=== PATIENT | female | born 1935 | race African-American/Black ===

== ENCOUNTER 2017-04-19 15:44 | Inpatient (IN) | payer BC ==
[2017-04-19] MEDS: ACETAMINOPHEN 500 MG TABLET PO (16:35)
[2017-04-19] MEDS: MORPHINE SULFATE 4 MG/ML DISP.SYRIN. IV (18:06)
[2017-04-19 19:19] LABS: BASO % 0 % (0-3); EOS % 0 % (0-3); HEMATOCRIT 25.3 % (36.0-47.0); LYMPH % 18 % (24-48); MEAN CORPUSCULAR HEMOGLOBIN 32 pg (25-35); MEAN CORPUSCULAR HGB CONC 32 g/dL (31-37); MEAN CORPUSCULAR VOLUME 100 fL (79-100); MONO # 0.4 x10^3/uL (0.0-1.1); MONO % 7 % (0-9); NEUT # 4.4 x10^3uL (1.8-7.7); NEUT % 75 % (31-73); PLATELET COUNT 90 x10^3/uL (140-400); RED BLOOD COUNT 2.53 x10^6/uL (3.50-5.40); RED CELL DISTRIBUTION WIDTH 19.1 % (11.5-14.5); WHITE BLOOD COUNT 5.9 x10^3/uL (4.0-11.0)
[2017-04-19 19:25] LABS: ADD MAN DIFF? YES
[2017-04-19] MEDS ORDERED: ONDANSETRON PF 4 MG/2 ML VIAL. IV (19:30)
[2017-04-19 19:39] LABS: ANION GAP 8 (6-14); BLOOD UREA NITROGEN 57 mg/dL (7-20); BUN/CREATININE RATIO 24 (6-20); CALCIUM 9.4 mg/dL (8.5-10.1); CARBON DIOXIDE 30 mmol/L (21-32); CHLORIDE 110 mmol/L (98-107); CREATININE 2.4 mg/dL (0.6-1.0); GFR 23.3; GLUCOSE 76 mg/dL (70-99); POTASSIUM 5.1 mmol/L (3.5-5.1); SODIUM 148 mmol/L (136-145)
[2017-04-19] MEDS: traMADol 50 MG TABLET PO (19:40)
[2017-04-19 19:45] LABS: ALBUMIN 2.5 g/dL (3.4-5.0); ALBUMIN/GLOBULIN RATIO 0.7 (1.0-1.7); ALK PHOS 122 U/L (46-116); ALT (SGPT) 28 U/L (14-59); AST (SGOT) 26 U/L (15-37); TOTAL BILIRUBIN 0.2 mg/dL (0.2-1.0); TOTAL PROTEIN 6.1 g/dL (6.4-8.2)
[2017-04-19 19:53] LABS: % BANDS 2 % (0-9); % LYMPHS 11 % (24-48); % MONOS 5 % (0-10); % MYELOS 1 % (0-0); % SEGS 81 % (35-66); ANISOCYTOSIS SLIGHT; PLT ESTIMATE DECREASED (ADEQUATE)
[2017-04-19] MEDS: hydrOXYzine PAMOATE 25 MG CAPSULE PO (21:10)
[2017-04-19] MEDS: LACTOBACILLUS RHAMNOSUS GG 1 CAPSULE. PO (21:10)
[2017-04-19] MEDS: ACETAMINOPHEN 325 MG TABLET. PO (21:11)
[2017-04-20] MEDS: traMADol 50 MG TABLET PO ×3 (03:11→18:32)
[2017-04-20] MEDS: LEVOTHYROXINE 75 MCG TABLET PO (06:16)
[2017-04-20] MEDS: LACTOBACILLUS RHAMNOSUS GG 1 CAPSULE. PO ×2 (08:23→20:51)
[2017-04-20] MEDS: CHOLECALCIFEROL (VITAMIN D3) 1,000 UNIT TABLET PO (08:23)
[2017-04-20] MEDS: hydrOXYzine PAMOATE 25 MG CAPSULE PO ×3 (08:23→20:51)
[2017-04-20] MEDS: ALLOPURINOL 100 MG TABLET. PO (08:23)
[2017-04-20] MEDS: predniSONE 10 MG TABLET PO (08:24)
[2017-04-20] MEDS: ASPIRIN ENTERIC COATED 81 MG TABLET.DR. PO (08:24)
[2017-04-20] MEDS: HYDROcodone/APAP 5/325MG 1 TAB TABLET PO (13:52)
[2017-04-20 18:42] LABS: LACTIC ACID 1.1 mmol/L (0.4-2.0)
[2017-04-21] MEDS: LEVOTHYROXINE 75 MCG TABLET PO (05:49)
[2017-04-21] MEDS: CHOLECALCIFEROL (VITAMIN D3) 1,000 UNIT TABLET PO (09:07)
[2017-04-21] MEDS: LACTOBACILLUS RHAMNOSUS GG 1 CAPSULE. PO ×2 (09:07→21:33)
[2017-04-21] MEDS: ASPIRIN ENTERIC COATED 81 MG TABLET.DR. PO (09:07)
[2017-04-21] MEDS: hydrOXYzine PAMOATE 25 MG CAPSULE PO ×3 (09:08→21:33)
[2017-04-21] MEDS: predniSONE 10 MG TABLET PO (09:08)
[2017-04-21] MEDS: HYDROcodone/APAP 5/325MG 1 TAB TABLET PO ×3 (09:08→17:41)
[2017-04-21] MEDS: ALLOPURINOL 100 MG TABLET. PO (09:08)
[2017-04-21] MEDS: traMADol 50 MG TABLET PO ×2 (12:21→18:37)
[2017-04-21] MEDS: LIDOCAINE 1% PF 2 ML VIAL. INJ (13:41)
[2017-04-21] MEDS: methylPREDNISolone ACETATE 80 MG/ML VIAL. INJ (13:41)
[2017-04-21] MEDS ORDERED: methylPREDNISolone ACETATE 80 MG/ML VIAL. (18:00)
[2017-04-21] MEDS: ACETAMINOPHEN 325 MG TABLET. PO (21:33)
[2017-04-22] MEDS: LEVOTHYROXINE 75 MCG TABLET PO (05:44)
[2017-04-22] MEDS: HYDROcodone/APAP 5/325MG 1 TAB TABLET PO ×3 (05:45→21:17)
[2017-04-22 09:24] LABS: ADD MAN DIFF? NO
[2017-04-22 09:36] LABS: BASO % 0 % (0-3); EOS % 0 % (0-3); HEMATOCRIT 25.9 % (36.0-47.0); HEMOGLOBIN 8.3 g/dL (12.0-15.5); LYMPH # 0.3 x10^3/uL (1.0-4.8); LYMPH % 9 % (24-48); MEAN CORPUSCULAR HEMOGLOBIN 32 pg (25-35); MEAN CORPUSCULAR HGB CONC 32 g/dL (31-37); MEAN CORPUSCULAR VOLUME 99 fL (79-100); MONO # 0.1 x10^3/uL (0.0-1.1); MONO % 3 % (0-9); NEUT # 3.1 x10^3uL (1.8-7.7); NEUT % 88 % (31-73); PLATELET COUNT 73 x10^3/uL (140-400); RED BLOOD COUNT 2.61 x10^6/uL (3.50-5.40); RED CELL DISTRIBUTION WIDTH 18.8 % (11.5-14.5); WHITE BLOOD COUNT 3.5 x10^3/uL (4.0-11.0)
[2017-04-22 09:40] LABS: ANION GAP 6 (6-14); BLOOD UREA NITROGEN 45 mg/dL (7-20); CALCIUM 9.5 mg/dL (8.5-10.1); CARBON DIOXIDE 28 mmol/L (21-32); CHLORIDE 106 mmol/L (98-107); CREATININE 2.1 mg/dL (0.6-1.0); GFR 27.2; GLUCOSE 117 mg/dL (70-99); POTASSIUM 4.8 mmol/L (3.5-5.1); SODIUM 140 mmol/L (136-145)
[2017-04-22] MEDS: ASPIRIN ENTERIC COATED 81 MG TABLET.DR. PO (09:42)
[2017-04-22] MEDS: LACTOBACILLUS RHAMNOSUS GG 1 CAPSULE. PO ×2 (09:43→21:17)
[2017-04-22] MEDS: ALLOPURINOL 100 MG TABLET. PO (09:43)
[2017-04-22] MEDS: predniSONE 10 MG TABLET PO (09:43)
[2017-04-22] MEDS: hydrOXYzine PAMOATE 25 MG CAPSULE PO ×3 (09:43→21:17)
[2017-04-22] MEDS: CHOLECALCIFEROL (VITAMIN D3) 1,000 UNIT TABLET PO (09:43)
[2017-04-22] MEDS: traMADol 50 MG TABLET PO (12:14)
[2017-04-23] MEDS: traMADol 50 MG TABLET PO (06:38)
[2017-04-23] MEDS: LEVOTHYROXINE 75 MCG TABLET PO (06:38)
[2017-04-23] MEDS: ALLOPURINOL 100 MG TABLET. PO (08:59)
[2017-04-23] MEDS: hydrOXYzine PAMOATE 25 MG CAPSULE PO (08:59)
[2017-04-23] MEDS: ASPIRIN ENTERIC COATED 81 MG TABLET.DR. PO (08:59)
[2017-04-23] MEDS: predniSONE 10 MG TABLET PO (08:59)
[2017-04-23] MEDS: CHOLECALCIFEROL (VITAMIN D3) 1,000 UNIT TABLET PO (08:59)
[2017-04-23] MEDS: LACTOBACILLUS RHAMNOSUS GG 1 CAPSULE. PO (08:59)
== END 2017-04-23 12:40 | DRG 913 ==
LOC: ER 15:44 → ED HOLD 19:55 → 4 NORTH 20:50
PROC: 3E0U33Z Introduction of Anti-inflammatory into Joints, Percutaneous Approach (ICD-10-PCS; principal; 2017-04-19)
DX: S46.002A Unspecified injury of muscle(s) and tendon(s) of the rotator cuff of left shoulder, initial encounter (principal); E43 Unspecified severe protein-calorie malnutrition; G62.9 Polyneuropathy, unspecified; I27.20 Pulmonary hypertension, unspecified; I13.0 Hypertensive heart and chronic kidney disease with heart failure and stage 1 through stage 4 chronic kidney disease, or unspecified chronic kidney disease; I50.9 Heart failure, unspecified; D64.9 Anemia, unspecified; E03.9 Hypothyroidism, unspecified; W01.0XXA Fall on same level from slipping, tripping and stumbling without subsequent striking against object, initial encounter; H91.90 Unspecified hearing loss, unspecified ear; I34.0 Nonrheumatic mitral (valve) insufficiency; K21.9 Gastro-esophageal reflux disease without esophagitis; K74.60 Unspecified cirrhosis of liver; M06.9 Rheumatoid arthritis, unspecified; M19.90 Unspecified osteoarthritis, unspecified site; N18.9 Chronic kidney disease, unspecified; Z82.49 Family history of ischemic heart disease and other diseases of the circulatory system; Z83.3 Family history of diabetes mellitus; Z90.49 Acquired absence of other specified parts of digestive tract; Z90.710 Acquired absence of both cervix and uterus; E21.3 Hyperparathyroidism, unspecified; F32.9 Major depressive disorder, single episode, unspecified; F41.9 Anxiety disorder, unspecified; M10.9 Gout, unspecified; Z80.9 Family history of malignant neoplasm, unspecified; Y93.89 Activity, other specified; Y92.89 Other specified places as the place of occurrence of the external cause; Y99.8 Other external cause status; Z60.2 Problems related to living alone
CPT/HCPCS: 36415; 73030; 80048; 80053; 83605; 85007; 85025; 96374; 97110-GP; 97116-GP; 97140-GP; 97162-GP; 97166-GO; 97530-GP; 97535-GO; 99285; 99285-25; J1040; J2270; J7512; Q0177

== ENCOUNTER 2018-05-10 14:34 | Inpatient (IN) | payer BC ==
[~2018-05-10] VITALS: Ht 170.2 cm; Wt 73.9 kg
[~2018-05-10 14:34] MED LIST: ACET325T9 PO; ALBU2.5V8 INH; ALLO100T PO; AMLO2.5T5 PO; AMOX1TAB10 PO; ASPI-612 PO; ASPI-630 PO; BUDE0.5A NEB; CEFP100T PO; CHOL10003 PO; CHOL200044 PO; CYAN100T2 INJ; DILT120C71 PO; FERR325C PO; FERR325T14 PO; FURO-69 PO; FURO20TA3 PO; FURO40TA4 PO; HYDR-2761 PO; HYDR200T5 PO; HYDR200T71 PO; HYDR25TA PO; IPRA3AMP29 NEB; LACT10SO5 PO; LACT1CAP19 PO; LEVO50TA5 PO; LOSA100T14 PO; METO-239 PO; OMEP40CA5 PO; POTA20TA12 PO; PRED-220 PO; PRED2.5T PO; PRED20TA PO; PRED5TAB PO; SPIR25TA5 PO; THIA100T8 PO; URSO250T3 PO; URSO250T9 PO; URSO300C13 PO; URSO300C26 PO; VITA1TAB19 PO
[2018-05-10] MEDS ORDERED: ASPIRIN CHEWABLE 81 MG TABLET. PO ONE ×2 (15:15→18:00)
--- NOTE | 2018-05-10 15:28 | EKG ---
[facility] [address] [place] [address] Test Date: 2018-05-10 Test Time: 15:07:15 Pat Name: ANDI MARTINEZ Department: Room: Gender: F [employer] Supervisor: MARIXA : 1935 Requested By: TONA MARROQUIN Order Number: [id number] Reading MD: Remi Gomez MD Measurements Intervals Ackerman Rate: 96 P: 33 [place]: 130 QRS: 6 QRSD: 96 T: 157 QT: 366 QTc: 469 Interpretive Statements SINUS RHYTHM LEFT ATRIAL ABNORMALITY LVH WITH REPOLARIZATION ABNORMALITY CONSISTENT WITH INFERIOR INFARCT AGE UNDETERMINED ABNORMAL ECG Electronically Signed On 05-12-2018 14:42:18 CDT by Remi Gomez MD
--- NOTE | 2018-05-10 15:41 | RAD ---
Portable chest, 05/10/2018: HISTORY: Shortness of breath Comparison is made to a study from 04/03/2018. The heart is within normal limits in size. There are persistent upper lobe infiltrates, right greater than left. These appear to have improved since the previous study. No new pulmonary abnormality is seen. There is no evidence of pleural fluid. IMPRESSION: Chronic upper lobe pulmonary infiltrates, right greater than left, have improved slightly since 04/03/2018. Electronically signed by: Dejon Ghotra MD (05/10/2018 3:38 PM) [facility]
[2018-05-10 15:42] LABS: BASO # 0.1 x10^3/uL (0.0-0.2); BASO % 1 % (0-3); EOS % 0 % (0-3); HEMOGLOBIN 8.8 g/dL (12.0-15.5); LYMPH # 1.2 x10^3/uL (1.0-4.8); LYMPH % 17 % (24-48); MEAN CORPUSCULAR HEMOGLOBIN 30 pg (25-35); MEAN CORPUSCULAR HGB CONC 31 g/dL (31-37); MEAN CORPUSCULAR VOLUME 97 fL (79-100); MONO # 0.4 x10^3/uL (0.0-1.1); MONO % 6 % (0-9); NEUT # 5.2 x10^3uL (1.8-7.7); NEUT % 76 % (31-73); PLATELET COUNT 140 x10^3/uL (140-400); RED BLOOD COUNT 2.89 x10^6/uL (3.50-5.40); RED CELL DISTRIBUTION WIDTH 23.1 % (11.5-14.5); WHITE BLOOD COUNT 6.9 x10^3/uL (4.0-11.0)
[2018-05-10 15:51] LABS: PROTHROMBIN TIME PATIENT 12.9 SEC (11.7-14.0)
[2018-05-10 16:04] LABS: CALCIUM 9.6 mg/dL (8.5-10.1); CREATININE 2.9 mg/dL (0.6-1.0); GFR 18.7
[2018-05-10 16:08] LABS: ALBUMIN 2.6 g/dL (3.4-5.0); ALBUMIN/GLOBULIN RATIO 0.6 (1.0-1.7); TOTAL BILIRUBIN 0.4 mg/dL (0.2-1.0); TOTAL PROTEIN 7.1 g/dL (6.4-8.2)
[2018-05-10 16:22] LABS: ANISOCYTOSIS MOD; PLT ESTIMATE ADEQUATE (ADEQUATE); POLYCHROMASIA PRESENT
[2018-05-10 16:23] LABS: OVALOCYTES FEW; SPHEROCYTES OCC
--- NOTE | 2018-05-10 16:50 | PHYS DOC ---
Past Medical History Past Medical History: GERD, Hypertension, Hypothyroid, Liver Disease, Renal Disease, Other Additional Past Medical Histor: [place],lung nodule,cirrhosis of liver , mitral valve regurgitation Past Surgical History: Appendectomy, Hysterectomy, Other Additional Past Surgical Histo: right ankle surgery, vena cava filter; stomach shunt Alcohol Use: None Drug Use: None Adult General Chief Complaint Chief Complaint: SHORTNESS OF BREATH HPI HPI 82-year-old female presents to ER via POV with her son for complaints of increased shortness of air and generalized fatigue and weakness. Per son patient has chronic anemia and Procrit shot however with patient's appearance staff did not administer the shot and symptoms to the ER for evaluation. Patient is denying any chest pain or palpitations. Patient states she has shortness of air which increases with any exertion. Patient denies abdominal pain or nausea and vomiting. She reports she has had some episodes of diarrhea over the past couple of days dark colored denies visible blood. Patient denies urinary symptoms. Review of Systems Review of Systems Constitutional: Denies fever or chills. Reports generalized fatigue and weakness Eyes: Denies change in visual acuity, redness, or eye pain [] HENT: Denies nasal congestion or sore throat [] Respiratory: Denies cough. Reports SOA which is worse with exertion Cardiovascular: Denies chest pain or palpitations GI: Denies abdominal pain, nausea, vomiting, or bloody stools. Reports diarrhea past couple of days : Denies dysuria or hematuria [] Musculoskeletal: Denies back/neck pain or joint pain- ports bilateral lower extremity swelling is chronic with no acute change. States discoloration in bilateral lower legs is also chronic- reporting intermittent scabbing to lower extremities Integument: Denies rash Neurologic: Denies headache, focal weakness or sensory changes. Endocrine: Denies polyuria or polydipsia [] All other systems were reviewed and found to be within normal limits, except as documented in this note. Current Medications Current Medications Current Medications Medications (Trade) Dose Ordered Sig/Caroline Start Time Stop Time Status Last Admin Dose Admin Aspirin (Children'S Aspirin) 324 mg 1X ONCE 05/10/18 15:15 05/10/18 15:20 DC Allergies Allergies Allergies Coded Allergies Type Severity Reaction Last Updated Verified No Known Drug Allergies 05/10/18 No Physical Exam Physical Exam Constitutional: Well developed, well nourished, no acute distress, non-toxic appearance. Fatigued appearance. Clear speech. HENT: Normocephalic, atraumatic, mucous membranes pink/moist, nose normal. [] Eyes: Pupils equal, conjunctiva normal, no discharge. [] Neck: Normal range of motion, no tenderness, supple, no stridor. Trachea midline Cardiovascular: Heart rate regular rhythm, no murmur [] Lungs & Thorax: Bilateral breath sounds clear to auscultation- diminished in bases. Resp. equal/nonlabored. Speaking in full sentences. Abdomen: Bowel sounds normal, soft, no tenderness, no masses, no pulsatile masses. [] Skin: Warm, dry, no erythema Back: No tenderness, no CVA tenderness. [] Extremities: No tenderness, no cyanosis, no clubbing, ROM intact-slow purposeful movements. 1+ nonpitting edema bilat. LEs with both lower legs with skin discoloration. Scabbing to lt lower leg- no open wounds/drainage/erythema Neurologic: Alert and oriented X 3, normal motor function, normal sensory function, no focal deficits noted. [] Psychologic: Affect normal, judgement normal, patient is anxious during initial exam at times tearful. No uncontrollable behavior Current Patient Data Vital Signs Vital Signs Date Time Temp Pulse Resp B/P (MAP) Pulse Ox O2 Delivery O2 Flow Rate FiO2 05/10/18 16:01 88 24 111/55 (73) 100 Room Air 05/10/18 14:55 95.7 95.7 Lab Values Laboratory Tests Test 05/10/18 15:25 White Blood Count 6.9 x10^3/uL (4.0-11.0) Red Blood Count 2.89 x10^6/uL (3.50-5.40) L Hemoglobin 8.8 g/dL (12.0-15.5) L Hematocrit 28.0 % (36.0-47.0) L Mean Corpuscular Volume 97 fL (79-100) Mean Corpuscular Hemoglobin 30 pg (25-35) Mean Corpuscular Hemoglobin Concent 31 g/dL (31-37) Red Cell Distribution Width 23.1 % (11.5-14.5) H Platelet Count 140 x10^3/uL (140-400) Neutrophils (%) (Auto) 76 % (31-73) H Lymphocytes (%) (Auto) 17 % (24-48) L Monocytes (%) (Auto) 6 % (0-9) Eosinophils (%) (Auto) 0 % (0-3) Basophils (%) (Auto) 1 % (0-3) Neutrophils # (Auto) 5.2 x10^3uL (1.8-7.7) Lymphocytes # (Auto) 1.2 x10^3/uL (1.0-4.8) Monocytes # (Auto) 0.4 x10^3/uL (0.0-1.1) Eosinophils # (Auto) 0.0 x10^3/uL (0.0-0.7) Basophils # (Auto) 0.1 x10^3/uL (0.0-0.2) Platelet Estimate Adequate (ADEQUATE) Polychromasia Present Anisocytosis Mod Macrocytosis Slight Spherocytes Occ Ovalocytes Few Prothrombin Time 12.9 SEC (11.7-14.0) Prothrombin Time INR 1.0 (0.8-1.1) PTT 34 SEC (24-38) Sodium Level 146 mmol/L (136-145) H Potassium Level 4.0 mmol/L (3.5-5.1) Chloride Level 104 mmol/L (98-107) Carbon Dioxide Level 26 mmol/L (21-32) Anion Gap 16 (6-14) H Blood Urea Nitrogen 58 mg/dL (7-20) H Creatinine 2.9 mg/dL (0.6-1.0) H Estimated GFR (Cockcroft-Gault) 18.7 BUN/Creatinine Ratio 20 (6-20) Glucose Level 108 mg/dL (70-99) H Calcium Level 9.6 mg/dL (8.5-10.1) Total Bilirubin 0.4 mg/dL (0.2-1.0) Aspartate Amino Transferase (AST) 23 U/L (15-37) Alanine Aminotransferase (ALT) 17 U/L (14-59) Alkaline Phosphatase 127 U/L (46-116) H Troponin I Quantitative < 0.017 ng/mL (0.000-0.055) UQ-Lab-T-Type Natriuretic Peptide 6185 pg/mL (0-449) H Total Protein 7.1 g/dL (6.4-8.2) Albumin 2.6 g/dL (3.4-5.0) L Albumin/Globulin Ratio 0.6 (1.0-1.7) L Laboratory Tests 05/10/18 15:25 Laboratory Tests 05/10/18 15:25 EKG EKG EKG obtained 05/10/18 at 1507 Interpreted by ER physician Sinus rhythm Rate 96 No STEMI Repeat EKG obtained 05/10/18 at 1714 Interpreted by ER physician and compared to prior EKG from today Sinus rhythm Rate 90 No STEMI Radiology/Procedures Radiology/Procedures PROCEDURE: CHEST AP ONLY Portable chest, 05/10/2018: HISTORY: Shortness of breath Comparison is made to a study from 04/03/2018. The heart is within normal limits in size. There are persistent upper lobe infiltrates, right greater than left. These appear to have improved since the previous study. No new pulmonary abnormality is seen. There is no evidence of pleural fluid. IMPRESSION: Chronic upper lobe pulmonary infiltrates, right greater than left, have improved slightly since 04/03/2018. Electronically signed by: Dejon Ghotra MD (05/10/2018 3:38 PM) [facility] DICTATED and SIGNED BY: DEJON GHOTRA MD DATE: 05/10/18 1536 Course & Med Decision Making Course & Med Decision Making Pertinent Labs and Imaging studies reviewed. (See chart for details) 1640: Reevaluation patient reports she has had improvement in her symptoms. She remains nontoxic with stable vital signs. Discussed test results with patient with CT showing no acute findings. Labs were stable. UA negative for infection. Discussed admission and pt is agreeable with admit plan. Will admit to hospitalist services for further care/evaluation. Spoke with Dr. Bronson, hospitalist and discussed pt's case and admit plan. Will consult pulmonology and cardiology with admit orders. Fecal occult pending as pt's H&H was 8.8/28.0- had ordered aspirin however with H&H results RN informed to hold aspirin until hemacult results returned and if positive aspirin to be held. 1710: Patient had increased shortness of air and so additional EKG was obtained no acute change from prior EKG. She is denying any chest pain or palpitations. She remains on 2 L O2 via nasal cannula with vital signs 103/56 heart rate 101 respirations 26 RR with O2 sat 100%. VQ scan ordered. Following RN redirecting on breathing and family arriving back to bedside pt is less SOA. Dragon Disclaimer Dragon Disclaimer This electronic medical record was generated, in whole or in part, using a voice recognition dictation system. Departure Departure Impression: Primary Impression: Acute electrocardiogram changes Additional Impression: Dyspnea Disposition: ADMITTED INPATIENT Admitting Physician: Warren Wright Condition: STABLE Referrals: RAVI SAUER MD (PCP) Scripts Fluticasone Propionate (Flonase Allergy Relief) 9.9 Ml Gatzke.susp 2 SPRAYS NS DAILY for nasal congestion, #1 BOTTLE Prov: REBECCA HUANG MD 05/14/18 Budesonide/Formoterol Fumarate (SYMBICORT 80-4.5 MCG INHALER) 10.2 Gm Hfa.aer.ad 1 PUFF IH BID for lung inflammation, #1 INHALER Prov: REBECCA HUANG MD 05/14/18 Prednisone (PREDNISONE ) 10 Mg Tablet 10 MG PO UD for lung inflammation, #30 TAB 0 Refills take 3 tablets by mouth daily for 8 days, then take 2 tablets by mouth daily for 2 days, then take 1 tablets by mouth daily for 2 days, then stop. Prov: REBECCA HUANG MD 05/14/18 Problem Qualifiers TONA MARROQUIN APRN May 10, 2018 16:50
[2018-05-10] MEDS ORDERED: ACETAMINOPHEN 325 MG TABLET. PO PRN (17:00)
--- NOTE | 2018-05-10 18:09 | PDOC1 ---
History and Physical Date of Admission Date of Admission DATE: 05/10/18 TIME: 18:09 Identification/Chief Complaint Chief Complaint SEEN IN ER via POV with her son for complaints of increased shortness of air and generalized fatigue and weakness. patient has chronic anemia and Procrit shot however with patient's appearance staff did not administer the shot and symptoms to the ER for evaluation. Patient is denying any chest pain or palpitations. states she has shortness of air which increases with any exertion. Patient denies abdominal pain or nausea and vomiting Past Medical History Past Medical History Past Medical History Past Medical History: GERD, Hypertension, Hypothyroid, Liver Disease, Renal Disease, Other Additional Past Medical Histor: [place],lung nodule,cirrhosis of liver , mitral valve regurgitation , PULM HTN Past Surgical History: Appendectomy, Hysterectomy, Other Additional Past Surgical Histo: right ankle surgery, vena cava filter; stomach shunt Alcohol Use: None Drug Use: None FAMILY HX HTN Cardiovascular: CHF, Valve insufficiency Pulmonary: No pertinent hx CENTRAL NERVOUS SYSTEM: Other GI: GERD Heme/Onc: Anemia NOS, Other Hepatobiliary: Cirrhosis Psych: No pertinent hx Musculoskeletal: No pain, Other Rheumatologic: Rheumatoid arthritis Renal/: Chronic renal insuff Endocrine: Hypothyroidism Past Surgical History Past Surgical History: Appendectomy, Hysterectomy, Other Family History Family History: Diabetes, Hypertension Social History Smoke: No ALCOHOL: none Drugs: None Current Problem List Problem List Problems Medical Problems: (1) Acute electrocardiogram changes Status: Acute (2) Dyspnea Status: Acute Current Medications Current Medications Current Medications Aspirin (Children'S Aspirin) 324 mg 1X ONCE PO ; Start 05/10/18 at 15:15; Stop 05/10/18 at 15:20; Status DC Acetaminophen (Tylenol) 650 mg PRN Q4HRS PRN PO PAIN; Start 05/10/18 at 17:00; Stop 05/11/18 at 16:59 Aspirin (Children'S Aspirin) 324 mg 1X ONCE PO ; Start 05/10/18 at 18:00; Stop 05/10/18 at 18:01; Status DC Active Scripts Active Duoneb 0.5-3(2.5) Mg/3 Ml (Albuterol/Ipratropium) 3 Ml Ampul.neb 3 Ml NEB 1X 30 Days Prednisone (Prednisone) 10 Mg Tablet 10 Mg PO DAILY 28 Days Please take 4 tabs po daily for 5 days then 3 tabs po daily for 7 days then 2 tabs po daily for 7 days and then continue with 1 tab po daily Metoprolol Succinate ( Xl ) (Metoprolol Succinate) 25 Mg Tab.er.24h 25 Mg PO DAILY 30 Days Reported Ferrous Sulfate 325 Mg Tablet 325 Mg PO QODAY Proair Hfa Inhaler (Albuterol Sulfate) 8.5 Gm Hfa.aer.ad 1 Puff INH PRN Q6HRS PRN Hydroxychloroquine Sulfate 200 Mg Tablet 1 Tab PO BID Vitamin D3 (Cholecalciferol (Vitamin D3)) 1,000 Unit Tablet 1,000 Unit PO DAILY Levothyroxine Sodium 50 Mcg Tablet 75 Mcg PO DAILY Aspirin Ec (Aspirin) 81 Mg Tablet.dr 81 Mg PO DAILY Allergies Allergies: Coded Allergies: No Known Drug Allergies (Unverified , 05/10/18) ROS Review of System Review of Systems Review of Systems Constitutional: Denies fever or chills. Reports generalized fatigue and weakness Eyes: Denies change in visual acuity, redness, or eye pain [] HENT: Denies nasal congestion or sore throat [] Respiratory: Denies cough. Reports SOA which is worse with exertion Cardiovascular: Denies chest pain or palpitations GI: Denies abdominal pain, nausea, vomiting, or bloody stools. Reports diarrhea past couple of days : Denies dysuria or hematuria [] Musculoskeletal: Denies back/neck pain or joint pain- ports bilateral lower extremity swelling is chronic with no acute change. States discoloration in bilateral lower legs is also chronic- reporting intermittent scabbing to lower extremities Integument: Denies rash Neurologic: Denies headache, focal weakness or sensory changes. Endocrine: Denies polyuria or polydipsia [] 14 PT systems were reviewed and found to be within normal limits, except as documented General: YES: Fatigue PSYCHOLOGICAL ROS: YES: Anxiety; No: Behavioral Disorder, Concentration difficultie, Decreased libido, Depression, Disorientation, Hallucinations, Hostility, Irritablity, Memory difficulties, Mood Swings, Obsessive thoughts, Physical abuse, Sexual abuse, Sleep disturbances, Suicidal ideation, Other ENDOCRINE: No: Breast Changes, Galactorrhea, Hair Pattern Changes, Hot Flashes , Malaise/lethargy, Mood Swings, Palpitations, Polydipsia/polyuria, Skin Changes , Temperature Intolerance, Unexpected Weight Changes, Other Gastrointestinal: Yes Nausea Physical Exam Physical Exam Physical Exam Physical Exam Constitutional: Well developed, well nourished, no acute distress, non-toxic appearance. Fatigued . Clear speech. HENT: Normocephalic, atraumatic, mucous membranes pink/moist, nose normal. [] Eyes: Pupils equal, conjunctiva normal, no discharge. [] Neck: Normal range of motion, no tenderness, supple, no stridor. Trachea midline Cardiovascular: Heart rate regular rhythm, 3/6 murmur [] Lungs & Thorax: Bilateral breath sounds clear to auscultation- diminished in bases. Resp. equal/nonlabored. Speaking in full sentences. Abdomen: Bowel sounds normal, soft, no tenderness, no masses, no pulsatile masses. [] Skin: Warm, dry, no erythema Back: No tenderness, no CVA tenderness. [] Extremities: No tenderness, no cyanosis, no clubbing, ROM intact-slow purposeful movements. 1+ nonpitting edema bilat. LEs with both lower legs with skin discoloration. Scabbing to lt lower leg- no open wounds/drainage/erythema Neurologic: Alert and oriented X 3, normal motor function, normal sensory function, no focal deficits noted. [] Psychologic: Affect normal, judgement normal, anxious General: Oriented X3, Cooperative, mild distress HEENT: Atraumatic Breasts: Not examined Abdomen: Soft Rectal Exam: not examined Extremities: No cyanosis Vitals Vitals Vital Signs Date Time Temp Pulse Resp B/P (MAP) Pulse Ox O2 Delivery O2 Flow Rate FiO2 05/10/18 14:55 95.7 98 20 110/58 (75) 99 Room Air 95.7 Labs Labs Laboratory Tests Test 05/10/18 15:25 White Blood Count 6.9 x10^3/uL (4.0-11.0) Red Blood Count 2.89 x10^6/uL (3.50-5.40) Hemoglobin 8.8 g/dL (12.0-15.5) Hematocrit 28.0 % (36.0-47.0) Mean Corpuscular Volume 97 fL (79-100) Mean Corpuscular Hemoglobin 30 pg (25-35) Mean Corpuscular Hemoglobin Concent 31 g/dL (31-37) Red Cell Distribution Width 23.1 % (11.5-14.5) Platelet Count 140 x10^3/uL (140-400) Neutrophils (%) (Auto) 76 % (31-73) Lymphocytes (%) (Auto) 17 % (24-48) Monocytes (%) (Auto) 6 % (0-9) Eosinophils (%) (Auto) 0 % (0-3) Basophils (%) (Auto) 1 % (0-3) Neutrophils # (Auto) 5.2 x10^3uL (1.8-7.7) Lymphocytes # (Auto) 1.2 x10^3/uL (1.0-4.8) Monocytes # (Auto) 0.4 x10^3/uL (0.0-1.1) Eosinophils # (Auto) 0.0 x10^3/uL (0.0-0.7) Basophils # (Auto) 0.1 x10^3/uL (0.0-0.2) Platelet Estimate Adequate (ADEQUATE) Polychromasia Present Anisocytosis Mod Macrocytosis Slight Spherocytes Occ Ovalocytes Few Prothrombin Time 12.9 SEC (11.7-14.0) Prothromb Time International Ratio 1.0 (0.8-1.1) Activated Partial Thromboplast Time 34 SEC (24-38) Sodium Level 146 mmol/L (136-145) Potassium Level 4.0 mmol/L (3.5-5.1) Chloride Level 104 mmol/L (98-107) Carbon Dioxide Level 26 mmol/L (21-32) Anion Gap 16 (6-14) Blood Urea Nitrogen 58 mg/dL (7-20) Creatinine 2.9 mg/dL (0.6-1.0) Estimated GFR (Cockcroft-Gault) 18.7 BUN/Creatinine Ratio 20 (6-20) Glucose Level 108 mg/dL (70-99) Calcium Level 9.6 mg/dL (8.5-10.1) Total Bilirubin 0.4 mg/dL (0.2-1.0) Aspartate Amino Transf (AST/SGOT) 23 U/L (15-37) Alanine Aminotransferase (ALT/SGPT) 17 U/L (14-59) Alkaline Phosphatase 127 U/L (46-116) Troponin I Quantitative < 0.017 ng/mL (0.000-0.055) WR-Gcs-H-Type Natriuretic Peptide 6185 pg/mL (0-449) Total Protein 7.1 g/dL (6.4-8.2) Albumin 2.6 g/dL (3.4-5.0) Albumin/Globulin Ratio 0.6 (1.0-1.7) Laboratory Tests Test 05/10/18 15:25 White Blood Count 6.9 x10^3/uL (4.0-11.0) Red Blood Count 2.89 x10^6/uL (3.50-5.40) Hemoglobin 8.8 g/dL (12.0-15.5) Hematocrit 28.0 % (36.0-47.0) Mean Corpuscular Volume 97 fL (79-100) Mean Corpuscular Hemoglobin 30 pg (25-35) Mean Corpuscular Hemoglobin Concent 31 g/dL (31-37) Red Cell Distribution Width 23.1 % (11.5-14.5) Platelet Count 140 x10^3/uL (140-400) Neutrophils (%) (Auto) 76 % (31-73) Lymphocytes (%) (Auto) 17 % (24-48) Monocytes (%) (Auto) 6 % (0-9) Eosinophils (%) (Auto) 0 % (0-3) Basophils (%) (Auto) 1 % (0-3) Neutrophils # (Auto) 5.2 x10^3uL (1.8-7.7) Lymphocytes # (Auto) 1.2 x10^3/uL (1.0-4.8) Monocytes # (Auto) 0.4 x10^3/uL (0.0-1.1) Eosinophils # (Auto) 0.0 x10^3/uL (0.0-0.7) Basophils # (Auto) 0.1 x10^3/uL (0.0-0.2) Platelet Estimate Adequate (ADEQUATE) Polychromasia Present Anisocytosis Mod Macrocytosis Slight Spherocytes Occ Ovalocytes Few Prothrombin Time 12.9 SEC (11.7-14.0) Prothromb Time International Ratio 1.0 (0.8-1.1) Activated Partial Thromboplast Time 34 SEC (24-38) Sodium Level 146 mmol/L (136-145) Potassium Level 4.0 mmol/L (3.5-5.1) Chloride Level 104 mmol/L (98-107) Carbon Dioxide Level 26 mmol/L (21-32) Anion Gap 16 (6-14) Blood Urea Nitrogen 58 mg/dL (7-20) Creatinine 2.9 mg/dL (0.6-1.0) Estimated GFR (Cockcroft-Gault) 18.7 BUN/Creatinine Ratio 20 (6-20) Glucose Level 108 mg/dL (70-99) Calcium Level 9.6 mg/dL (8.5-10.1) Total Bilirubin 0.4 mg/dL (0.2-1.0) Aspartate Amino Transf (AST/SGOT) 23 U/L (15-37) Alanine Aminotransferase (ALT/SGPT) 17 U/L (14-59) Alkaline Phosphatase 127 U/L (46-116) Troponin I Quantitative < 0.017 ng/mL (0.000-0.055) YS-Egz-H-Type Natriuretic Peptide 6185 pg/mL (0-449) Total Protein 7.1 g/dL (6.4-8.2) Albumin 2.6 g/dL (3.4-5.0) Albumin/Globulin Ratio 0.6 (1.0-1.7) Images Images STATUS: ADM IN ORD. PHYSICIAN: TONA MARROQUIN APRN REASON: soa /SD tech NOTIFIED PROCEDURE: LUNG VENT/PERFUSION SCAN(VQ) Lung scan 05/10/2018 CLINICAL HISTORY: Shortness of breath for 2 days. TECHNIQUE: After the administration of 9.0 mCi of Xenon-133, ventilation images of both lungs were obtained using the gamma camera. After the intravenous administration of 6.6 mCi of Technetium 99m MAA, perfusion images of both lungs were obtained using the gamma camera. FINDINGS: Comparison is made to portable chest radiograph performed earlier today. This demonstrates borderline cardiomegaly. Right upper lobe patchy infiltrate is seen. Slightly heterogeneous ventilation and perfusion of the radionuclides to both lungs is seen. No unmatched perfusion defect is seen. These findings are consistent with a low probability study for pulmonary embolism. IMPRESSION: Low probability study. Electronically signed by: Danny Monterroso MD (05/10/2018 11:32 PM) [facility] DICTATED and SIGNED BY: DANNY MONTERROSO MD Critical Notification Critical Value: No <Conclusion> The left ventricle is normal size. The left ventricular systolic function is normal and the ejection fraction is within normal range. The Ejection Fraction is 50-55%. There is mild to moderate concentric left ventricular hypertrophy. Calculated aortic valve area is 1.9 cm2 with maximum pressure gradient of 13 mmHg and mean pressure gradient of 7 mmHg. There is mild valvular aortic stenosis. Doppler and Color Flow revealed mild aortic regurgitation. Doppler and Color-flow revealed moderate mitral regurgitation. Doppler and Color Flow revealed moderately severe tricuspid regurgitation. There is severe pulmonary hypertension. The PA pressure was estimated at >68 mmHg. HISTORY: Shortness of breath Comparison is made to a study from 04/03/2018. The heart is within normal limits in size. There are persistent upper lobe infiltrates, right greater than left. These appear to have improved since the previous study. No new pulmonary abnormality is seen. There is no evidence of pleural fluid. IMPRESSION: Chronic upper lobe pulmonary infiltrates, right greater than left, have improved slightly since 04/03/2018. Electronically signed by: Dejon Ghotra MD (05/10/2018 3:38 PM) [facility] DICTATED and SIGNED BY: DEJON GHOTRA MD DATE: 05/10/18 1538 CORONARY ANGIOGRAPHY: LM is a large caliber vessel with normal angiographic appearance. LAD is a large caliber vessel with mild luminal irregularities. Ramus is a moderate caliber vessel with mild luminal irregularities. LCx is a moderate caliber non-dominant vessel with mild luminal irregularities. OM1 is a moderate caliber vessel with normal angiographic appearance. RCA is a large caliber dominant vessel with a mid occlusion. RPDA and RPL are small caliber vessels with normal angiographic appearance that fill via robust left to right collaterals. Conclusion 1. One vessel CAD. 2. Mildly elevated left ventricular pressure. VTE Prophylaxis Ordered VTE Prophylaxis Devices: Yes VTE Pharmacological Prophylaxi: Contraindicated Assessment/Plan Assessment/Plan IMPRESSION Acute hypoxic resp failure Chronic upper lobe pulmonary infiltrates, right greater than left, have improved slightly since 04/03/2018. GENERALIZED WEAKNESS ANEMIA, NORMOCYTIC WITH HEME POS STOOL IN ER FATIGUE, multifactorial RCA is a large caliber dominant vessel with a mid occlusion. RPDA and RPL are small caliber vessels with normal angiographic appearance that fill via robust left to right collaterals. One vessel CAD. Mildly elevated left ventricular pressure. acute renal injury baseline cr approx 1.7 -2.0 ATN RECENT ECHO C/W Doppler and Color Flow revealed moderately severe tricuspid regurgitation. severe pulmonary hypertension. PA pressure was estimated at >68 mmHg. PLAN CARDIOLOGY CONSULT o2 support PULM CONSULT TELE MONITOR FREQ LAB HOME MEDS v/q scan aura nephrology consult iv fluid support hold nephrotoxins dvt prophylaxis 79 min exam time, chart review, > 50% time spent with exam, chart review, pt care coordination ANGLE STEEL MD May 10, 2018 18:09
[2018-05-10 18:14] LABS: BILIRUBIN,URINE SMALL (NEG); CLARITY,URINE CLEAR; COLOR,URINE YELLOW; NITRITE,URINE NEGATIVE (NEG); PROTEIN,URINE NEGATIVE (NEG-TRACE)
[2018-05-10 18:19] LABS: FECAL OB PT POSITIVE (NEG)
[2018-05-10 18:29] LABS: AMORPHOUS SEDIMENT,UR PRESENT /HPF; BACTERIA,URINE 0 /HPF (0-FEW); HYALINE CASTS, URINE MODERATE /HPF; RBC,URINE OCC /HPF (0-2); SQUAMOUS EPITHELIAL CELL,UR FEW /LPF
--- NOTE | 2018-05-10 19:04 | EKG ---
[facility] [address] [place] [address] Test Date: 2018-05-10 Test Time: 17:14:39 Pat Name: ANDI MARTINEZ Department: Room: 260 1 Gender: F Corporate Representative: : 1935 Requested By: STAFF NON Order Number: [id number] Reading MD: Remi Gomez MD Measurements Intervals [place] Rate: 90 P: 44 AL: 128 QRS: 26 QRSD: 96 T: 174 QT: 364 QTc: 449 Interpretive Statements SINUS RHYTHM LEFT ATRIAL ABNORMALITY ST & T ABNORMALITY, CONSIDER LATERAL ISCHEMIA OR LEFT VENTRICULAR STRAIN INFERIOR ISCHEMIA OR LEFT VENTRICULAR STRAIN T ABNORMALITY IN ANTERIOR LEADS ABNORMAL ECG Electronically Signed On 05-12-2018 14:43:52 CDT by Remi Gomez MD
[2018-05-10 19:25] VITALS: BP 122/67
[2018-05-10] MEDS ORDERED: ALBUTEROL SULFATE 2.5 MG/3 ML NEBU. INH PRN (20:15)
[2018-05-10] MEDS ORDERED: ALBUTEROL SULFATE 2.5 MG/3 ML NEBU. NEB PRN (21:00)
[2018-05-10] MEDS: IV NORMAL SALINE 1000ML BAG 1,000 ML IV SCH (21:32)
[2018-05-10] MEDS: HEPARIN for SUB-Q USE 5,000 UNIT/ML VIAL. SQ SCH (21:34)
[2018-05-10 23:35] VITALS: BP 121/70
--- NOTE | 2018-05-10 23:35 | RAD ---
Lung scan 05/10/2018 CLINICAL HISTORY: Shortness of breath for 2 days. TECHNIQUE: After the administration of 9.0 mCi of Xenon-133, ventilation images of both lungs were obtained using the gamma camera. After the intravenous administration of 6.6 mCi of Technetium 99m MAA, perfusion images of both lungs were obtained using the gamma camera. FINDINGS: Comparison is made to portable chest radiograph performed earlier today. This demonstrates borderline cardiomegaly. Right upper lobe patchy infiltrate is seen. Slightly heterogeneous ventilation and perfusion of the radionuclides to both lungs is seen. No unmatched perfusion defect is seen. These findings are consistent with a low probability study for pulmonary embolism. IMPRESSION: Low probability study. Electronically signed by: Danny Monterroso MD (05/10/2018 11:32 PM) [facility]
[2018-05-11] VITALS (11 sets, daily range): BP systolic 98–127; BP diastolic 41–60
[2018-05-11] MEDS ORDERED: IPRATRPIUM/ALBUTEROL 0.5/2.5MG 3 ML NEBU. NEB SCH
[2018-05-11 05:13] LABS: BASO % 0 % (0-3); EOS % 1 % (0-3); HEMATOCRIT 23.8 % (36.0-47.0); HEMOGLOBIN 7.5 g/dL (12.0-15.5); LYMPH # 0.9 x10^3/uL (1.0-4.8); LYMPH % 22 % (24-48); MEAN CORPUSCULAR HEMOGLOBIN 31 pg (25-35); MEAN CORPUSCULAR HGB CONC 32 g/dL (31-37); MEAN CORPUSCULAR VOLUME 97 fL (79-100); MONO # 0.3 x10^3/uL (0.0-1.1); MONO % 8 % (0-9); NEUT # 2.7 x10^3uL (1.8-7.7); NEUT % 69 % (31-73); PLATELET COUNT 126 x10^3/uL (140-400); RED BLOOD COUNT 2.45 x10^6/uL (3.50-5.40); RED CELL DISTRIBUTION WIDTH 22.4 % (11.5-14.5)
[2018-05-11 05:34] LABS: ALBUMIN 2.2 g/dL (3.4-5.0); ALBUMIN/GLOBULIN RATIO 0.6 (1.0-1.7); CALCIUM 8.9 mg/dL (8.5-10.1); CREATININE 2.9 mg/dL (0.6-1.0); GFR 18.7; POTASSIUM 3.8 mmol/L (3.5-5.1); TOTAL BILIRUBIN 0.3 mg/dL (0.2-1.0); TOTAL PROTEIN 5.8 g/dL (6.4-8.2)
[2018-05-11] MEDS: HEPARIN for SUB-Q USE 5,000 UNIT/ML VIAL. SQ SCH ×2 (05:37→13:02)
--- NOTE | 2018-05-11 05:38 | NUR ---
VQ scan low probability for PE. Patient has IVC filter. Hgb 8.8 yesterday, 7.5 this morning. Held 0600 dose Heparin SQ.
[2018-05-11] MEDS: LEVOTHYROXINE 75 MCG TABLET PO SCH (06:04)
[2018-05-11 08:22] LABS: % BANDS 1 % (0-9); % LYMPHS 18 % (24-48); % MONOS 7 % (0-10); % SEGS 74 % (35-66); NUCLEATED RBC 2; PLT ESTIMATE DECREASED (ADEQUATE)
[2018-05-11 08:23] LABS: ANISOCYTOSIS MOD
[2018-05-11] MEDS: CHOLECALCIFEROL (VITAMIN D3) 1,000 UNIT TABLET PO SCH (08:26)
[2018-05-11] MEDS: ASPIRIN ENTERIC COATED 81 MG TABLET.DR. PO SCH (08:26)
[2018-05-11] MEDS: METOPROLOL SUCC 24HR ER 25 MG TAB.ER.24H. PO SCH (08:27)
[2018-05-11] MEDS: IV NORMAL SALINE 1000ML BAG 1,000 ML IV SCH ×2 (08:29→20:32)
--- NOTE | 2018-05-11 11:26 | PDOC2 ---
CAROLANN,CYNTHIAJACKY HUNT 05/11/18 1126: CARDIAC CONSULT DATE OF CONSULT Date of Consult DATE: 05/11/18 TIME: 11:08 REASON FOR CONSULT Reason for Consult: EKG changes REFERRING PHYSICIAN Referring Physician: Sue Dean APRN SOURCE Source: Chart review, Patient HISTORY OF PRESENT ILLNESS HISTORY OF PRESENT ILLNESS This is an 82 yo female who presented secondary to shortness of breath, weakness , and fatigue. Patient reports shortness of breath has been present for the last 2-3 months. Has been progressive over the last couple of days. Does okay at rest, but become significantly dyspneic with minimal exertion. Denies any chest pain, palpitations, dizziness, diaphoresis, or nausea/vomiting. Patient was seen by our service last month for similar symptoms. Underwent cardiac catheterization, which revealed one-vessel CAD and mildly elevated left ventricular pressure. Patient was diuresed. . Also underwent CT scan of the chest, which showed concerns for IDL- sarcoidosis versus pneumonitis. Sed rate was elevated at that time. Patient reports having much less swelling since last admission, but dyspnea never significantly improved PAST MEDICAL HISTORY Past Medical History Cardiovascular: CHF, Valve insufficiency (Mitral regurgitation.) Pulmonary: No pertinent hx CENTRAL NERVOUS SYSTEM: Other (no pertinent hx) GI: GERD Heme/Onc: Anemia NOS, Other (DVT) Hepatobiliary: Cirrhosis (biliary cirrhosis) Psych: No pertinent hx Rheumatologic: Rheumatoid arthritis ENT: No pertinent hx Renal/: Chronic renal insuff Endocrine: Hypothyroidism Dermatology: No pertinent hx PAST SURGICAL HISTORY Past Surgical History Appendectomy, Hysterectomy, Other (IVC filter, gastric bypass) FAMILY HISTORY Family History: Diabetes SOCIAL HISTORY Social History Smoke: No ALCOHOL: none Drugs: None Lives: with Family CURRENT MEDICATIONS CURRENT MEDICATIONS Current Medications Medications (Trade) Dose Ordered Sig/Caroline Route PRN Reason Start Time Stop Time Status Last Admin Dose Admin Aspirin (Children'S Aspirin) 324 mg 1X ONCE PO 05/10/18 18:00 05/10/18 18:01 DC 05/10/18 21:31 Aspirin (Ecotrin) 81 mg DAILY PO 05/11/18 09:00 05/11/18 08:26 Vitamin D (Vitamin D3) 1,000 unit DAILY PO 05/11/18 09:00 05/11/18 08:26 Metoprolol Succinate (Toprol Xl) 25 mg DAILY PO 05/11/18 09:00 05/11/18 08:27 Levothyroxine Sodium (Synthroid) 75 mcg DAILY06 PO 05/11/18 06:00 05/11/18 06:04 Heparin Sodium (Porcine) (Heparin Sodium) 5,000 unit Q8HRS SQ 05/10/18 22:00 05/10/18 21:34 Sodium Chloride 1,000 ml @ 75 mls/hr [id number] IV 05/10/18 20:30 05/11/18 08:29 ALLERGIES ALLERGIES: Coded Allergies: No Known Drug Allergies (Unverified , 05/10/18) ROS Review of System 14 point ROS conducted with pertinent positives noted above in HPI. PHYSICAL EXAM General: Alert, Oriented X3, Cooperative, mild distress (with minimal exertion) HEENT: Atraumatic, Mucous membr. moist/pink Lungs: Other (expiratory crackles ) Heart: Regular rate, Normal S1, Normal S2, Other (3/6 systolic murmur ) Abdomen: Soft, No tenderness Extremities: Normal pulses, Other (trace LE edema ) Skin: No significant lesion Neuro: Sensation intact Psych/Mental Status: Mental status NL, Mood NL MUSCULOSKELETAL: Osteoarthritic changes both hands VITALS VITALS Vital Signs Date Time Temp Pulse Resp B/P (MAP) Pulse Ox O2 Delivery O2 Flow Rate FiO2 05/11/18 08:44 98.1 77 18 113/55 (74) 100 Nasal Cannula 2.0 98.1 LABS Lab: Laboratory Tests Test 05/10/18 15:25 05/10/18 17:55 05/10/18 17:59 05/10/18 19:50 White Blood Count 6.9 x10^3/uL (4.0-11.0) Red Blood Count 2.89 x10^6/uL (3.50-5.40) Hemoglobin 8.8 g/dL (12.0-15.5) Hematocrit 28.0 % (36.0-47.0) Mean Corpuscular Volume 97 fL (79-100) Mean Corpuscular Hemoglobin 30 pg (25-35) Mean Corpuscular Hemoglobin Concent 31 g/dL (31-37) Red Cell Distribution Width 23.1 % (11.5-14.5) Platelet Count 140 x10^3/uL (140-400) Neutrophils (%) (Auto) 76 % (31-73) Lymphocytes (%) (Auto) 17 % (24-48) Monocytes (%) (Auto) 6 % (0-9) Eosinophils (%) (Auto) 0 % (0-3) Basophils (%) (Auto) 1 % (0-3) Neutrophils # (Auto) 5.2 x10^3uL (1.8-7.7) Lymphocytes # (Auto) 1.2 x10^3/uL (1.0-4.8) Monocytes # (Auto) 0.4 x10^3/uL (0.0-1.1) Eosinophils # (Auto) 0.0 x10^3/uL (0.0-0.7) Basophils # (Auto) 0.1 x10^3/uL (0.0-0.2) Platelet Estimate Adequate (ADEQUATE) Polychromasia Present Anisocytosis Mod Macrocytosis Slight Spherocytes Occ Ovalocytes Few Prothrombin Time 12.9 SEC (11.7-14.0) Prothromb Time International Ratio 1.0 (0.8-1.1) Activated Partial Thromboplast Time 34 SEC (24-38) Sodium Level 146 mmol/L (136-145) Potassium Level 4.0 mmol/L (3.5-5.1) Chloride Level 104 mmol/L (98-107) Carbon Dioxide Level 26 mmol/L (21-32) Anion Gap 16 (6-14) Blood Urea Nitrogen 58 mg/dL (7-20) Creatinine 2.9 mg/dL (0.6-1.0) Estimated GFR (Cockcroft-Gault) 18.7 BUN/Creatinine Ratio 20 (6-20) Glucose Level 108 mg/dL (70-99) Calcium Level 9.6 mg/dL (8.5-10.1) Total Bilirubin 0.4 mg/dL (0.2-1.0) Aspartate Amino Transf (AST/SGOT) 23 U/L (15-37) Alanine Aminotransferase (ALT/SGPT) 17 U/L (14-59) Alkaline Phosphatase 127 U/L (46-116) Troponin I Quantitative < 0.017 ng/mL (0.000-0.055) < 0.017 ng/mL (0.000-0.055) ZP-Eza-A-Type Natriuretic Peptide 6185 pg/mL (0-449) Total Protein 7.1 g/dL (6.4-8.2) Albumin 2.6 g/dL (3.4-5.0) Albumin/Globulin Ratio 0.6 (1.0-1.7) Urine Collection Type U cath Urine Color Yellow Urine Clarity Clear Urine pH 5.0 Urine Specific Alligator 1.020 Urine Protein Negative mg/dL (NEG-TRACE) Urine Glucose (UA) Negative mg/dL (NEG) Urine Ketones (Stick) Negative mg/dL (NEG) Urine Blood Negative (NEG) Urine Nitrite Negative (NEG) Urine Bilirubin Small (NEG) Urine Urobilinogen Dipstick 1.0 mg/dL (0.2 mg/dL) Urine Leukocyte Esterase Negative (NEG) Urine RBC Occ /HPF (0-2) Urine WBC 1-4 /HPF (0-4) Urine Squamous Epithelial Cells Few /LPF Urine Amorphous Sediment Present /HPF Urine Bacteria 0 /HPF (0-FEW) Urine Hyaline Casts Moderate /HPF Urine Mucus Slight /LPF Stool Occult Blood Positive (NEG) Test 05/10/18 22:35 05/11/18 04:48 Troponin I Quantitative < 0.017 ng/mL (0.000-0.055) White Blood Count 4.0 x10^3/uL (4.0-11.0) Red Blood Count 2.45 x10^6/uL (3.50-5.40) Hemoglobin 7.5 g/dL (12.0-15.5) Hematocrit 23.8 % (36.0-47.0) Mean Corpuscular Volume 97 fL (79-100) Mean Corpuscular Hemoglobin 31 pg (25-35) Mean Corpuscular Hemoglobin Concent 32 g/dL (31-37) Red Cell Distribution Width 22.4 % (11.5-14.5) Platelet Count 126 x10^3/uL (140-400) Neutrophils (%) (Auto) 69 % (31-73) Lymphocytes (%) (Auto) 22 % (24-48) Monocytes (%) (Auto) 8 % (0-9) Eosinophils (%) (Auto) 1 % (0-3) Basophils (%) (Auto) 0 % (0-3) Neutrophils # (Auto) 2.7 x10^3uL (1.8-7.7) Lymphocytes # (Auto) 0.9 x10^3/uL (1.0-4.8) Monocytes # (Auto) 0.3 x10^3/uL (0.0-1.1) Eosinophils # (Auto) 0.0 x10^3/uL (0.0-0.7) Basophils # (Auto) 0.0 x10^3/uL (0.0-0.2) Segmented Neutrophils % 74 % (35-66) Band Neutrophils % 1 % (0-9) Lymphocytes % 18 % (24-48) Monocytes % 7 % (0-10) Nucleated Red Blood Cells 2 Platelet Estimate Decreased (ADEQUATE) Large Platelets Occ Anisocytosis Mod Sodium Level 146 mmol/L (136-145) Potassium Level 3.8 mmol/L (3.5-5.1) Chloride Level 106 mmol/L (98-107) Carbon Dioxide Level 31 mmol/L (21-32) Anion Gap 9 (6-14) Blood Urea Nitrogen 59 mg/dL (7-20) Creatinine 2.9 mg/dL (0.6-1.0) Estimated GFR (Cockcroft-Gault) 18.7 BUN/Creatinine Ratio 20 (6-20) Glucose Level 81 mg/dL (70-99) Calcium Level 8.9 mg/dL (8.5-10.1) Total Bilirubin 0.3 mg/dL (0.2-1.0) Aspartate Amino Transf (AST/SGOT) 17 U/L (15-37) Alanine Aminotransferase (ALT/SGPT) 15 U/L (14-59) Alkaline Phosphatase 106 U/L (46-116) Total Protein 5.8 g/dL (6.4-8.2) Albumin 2.2 g/dL (3.4-5.0) Albumin/Globulin Ratio 0.6 (1.0-1.7) ECHOCARDIOGRAM ECHOCARDIOGRAM <Conclusion> The left ventricle is normal size. The left ventricular systolic function is normal and the ejection fraction is within normal range. The Ejection Fraction is 50-55%. There is mild to moderate concentric left ventricular hypertrophy. Calculated aortic valve area is 1.9 cm2 with maximum pressure gradient of 13 mmHg and mean pressure gradient of 7 mmHg. There is mild valvular aortic stenosis. Doppler and Color Flow revealed mild aortic regurgitation. Doppler and Color-flow revealed moderate mitral regurgitation. Doppler and Color Flow revealed moderately severe tricuspid regurgitation. There is severe pulmonary hypertension. The PA pressure was estimated at >68 mmHg. DATE: 04/04/18 1302 STRESS TEST STRESS TEST Conclusion 1. The baseline EKG showed small q waves in the inferior leads. 2. ST T wave changes in the high lateral leads with no further changes with pharmacological stress. 3. Perfusion defects suggesting a scar over a portion of the inferior wall and a small portion over the apicolateral wall. 4. A very small area of ischemia over the lateral wall. 5. Hypokinesis over the inferio wall with an ejection fraction of 65%. 6. Scan probably indicates low risk for future cardiac events. DATE: 08/20/162036 HEART CATH HEART CATH CORONARY ANGIOGRAPHY: LM is a large caliber vessel with normal angiographic appearance. LAD is a large caliber vessel with mild luminal irregularities. Ramus is a moderate caliber vessel with mild luminal irregularities. LCx is a moderate caliber non-dominant vessel with mild luminal irregularities. OM1 is a moderate caliber vessel with normal angiographic appearance. RCA is a large caliber dominant vessel with a mid occlusion. RPDA and RPL are small caliber vessels with normal angiographic appearance that fill via robust left to right collaterals. Conclusion 1. One vessel CAD. 2. Mildly elevated left ventricular pressure. Recommendations Aggressive medical therapy with treatment of bleeding issues. Keep Hgb > 8.0 No heparin gtt needed. Continue ASA 81mg daily DATE: 04/04/18 1422 ASSESSMENT/PLAN ASSESSMENT/PLAN 1. Fatigue, weakness 2. Dyspnea; multifactorial. VQ low probability for PE. 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 3. Mild acute on chronic diastolic HF; NT Pro BNP elevated, but CXR without significant vascular congestion. Recent echo with preserved LV systolic function 4. CAD; mid occlusion of RCA noted on cath last month as noted above. 5. HEMAL on CKD; IVFs. 6. Anemia of chronic disease; hbg drop to 7.5 overnight. Fecal occult positive 7. Valvular disease; mild /AR, moderate MR, and moderate-severe TR 8. Severe pulm HTN; PAP 68 9. Hypothyroidism Recommendations Follow pulmonary recs Monitor fluid status closely with IVFs Secondary prevention; ASA, BB, statin No ACEi with HEMAL Supportive care ELMIRA HURTADO MD 05/12/18 1001: CARDIAC CONSULT ASSESSMENT/PLAN ASSESSMENT/PLAN Late entry for 05/11/2018 Pt. seen and examined. Agree with above MATERIALS RECYCLER note. No clear source of cardiac fatigue. She does have pulmonary HTN which is multifactorial. Supportive care. No further CV testing needed, unless pulm team needs a RHC CYNTHIA VUONG APRN May 11, 2018 11:26 ELMIRA HURTADO MD May 12, 2018 10:01
--- NOTE | 2018-05-11 13:23 | NUR ---
SS following for discharge planning. SS reviewed pt chart. Pt is from home and is currently requiring oxygen. Pt was previously on services with [facility], ; fax [phone]. SS will continue to follow for discharge planning.
--- NOTE | 2018-05-11 14:18 | PDOC2 ---
CONSULT Date of Consult Date of Consult DATE: 05/11/18 TIME: 14:10 Reason for Consult Reason for Consult: HEMAL Referring Physician Referring Physician: MILVIA Identification/Chief Complaint Chief Complaint SOB AND WEAKNESS Source Source: Chart review, Patient History of Present Illness Reason for Visit: THIS IS AN 82 YR OLD WITH SOB AND WEAKNESS. NOTED TO HAVE A HGB OF 7.5. SHE DOES HAVE CKD STAGE 4 AND IS ON OP ARANESP QOW AND IRON. CR OF 2.9 NOW AND BASELINE IS ABOUT 2.0. HX ALSO NOTABLE FOR VALVULAR HEART DZ, CAD AND PULMONARY HTN. NO HX OF ANY KIDNEY OR BLADDER SURGERIES HEMATURIA DYSURIA OR FREQUENCY AND NO NEPHROTOXINS OR HEMODYNAMIC INSTABILITY NOTED Past Medical History Cardiovascular: CHF, Valve insufficiency Pulmonary: No pertinent hx CENTRAL NERVOUS SYSTEM: Other GI: GERD Heme/Onc: Anemia NOS, Other Hepatobiliary: Cirrhosis Psych: No pertinent hx Musculoskeletal: No pain, Other Rheumatologic: Rheumatoid arthritis Renal/: Chronic renal insuff Endocrine: Hypothyroidism Past Surgical History Past Surgical History: Appendectomy, Hysterectomy, Other Family History Family History: Diabetes Social History No ALCOHOL: none Drugs: None Lives: with Family Current Problem List Problem List Problems Medical Problems: (1) Acute electrocardiogram changes Status: Acute (2) Dyspnea Status: Acute Current Medications Current Medications Current Medications Aspirin (Children'S Aspirin) 324 mg 1X ONCE PO ; Start 05/10/18 at 15:15; Stop 05/10/18 at 15:20; Status DC Acetaminophen (Tylenol) 650 mg PRN Q4HRS PRN PO PAIN; Start 05/10/18 at 17:00; Stop 05/11/18 at 16:59 Aspirin (Children'S Aspirin) 324 mg 1X ONCE PO Last administered on 05/10/18at 21:31; Start 05/10/18 at 18:00; Stop 05/10/18 at 18:01; Status DC Albuterol Sulfate (Ventolin Neb Soln) 2.5 mg PRN Q6HRS PRN INH SHORTNESS OF BREATH; Start 05/10/18 at 20:15; Stop 05/10/18 at 20:49; Status DC Aspirin (Ecotrin) 81 mg DAILY PO Last administered on 05/11/18at 08:26; Start at 09:00 Vitamin D (Vitamin D3) 1,000 unit DAILY PO Last administered on 05/11/18at 08:26 ; Start 05/11/18 at 09:00 Ferrous Sulfate (Feosol) 325 mg QODAY PO ; Start 05/12/18 at 09:00 Albuterol/ Ipratropium (Duoneb) 3 ml Q4HRS NEB ; Start 05/11/18 at 00:00; Stop 05/11/18 at 00:00; Status DC Metoprolol Succinate (Toprol Xl) 25 mg DAILY PO Last administered on 05/11/18at 08:27; Start 05/11/18 at 09:00 Levothyroxine Sodium (Synthroid) 75 mcg DAILY06 PO Last administered on at 06:04; Start 05/11/18 at 06:00 Heparin Sodium (Porcine) (Heparin Sodium) 5,000 unit Q8HRS SQ Last administered on 05/10/18at 21:34; Start 05/10/18 at 22:00 Sodium Chloride 1,000 ml @ 75 mls/hr [id number] IV Last administered on at 08:29; Start 05/10/18 at 20:30 Albuterol Sulfate (Ventolin Neb Soln) 2.5 mg PRN Q4HRS PRN NEB SHORTNESS OF BREATH; Start 05/10/18 at 21:00 Atorvastatin Calcium (Lipitor) 20 mg QHS PO ; Start 05/11/18 at 21:00 Active Scripts Active Duoneb 0.5-3(2.5) Mg/3 Ml (Albuterol/Ipratropium) 3 Ml Ampul.neb 3 Ml NEB 1X 30 Days Prednisone (Prednisone) 10 Mg Tablet 10 Mg PO DAILY 28 Days Please take 4 tabs po daily for 5 days then 3 tabs po daily for 7 days then 2 tabs po daily for 7 days and then continue with 1 tab po daily Metoprolol Succinate ( Xl ) (Metoprolol Succinate) 25 Mg Tab.er.24h 25 Mg PO DAILY 30 Days Reported Ferrous Sulfate 325 Mg Tablet 325 Mg PO QODAY Proair Hfa Inhaler (Albuterol Sulfate) 8.5 Gm Hfa.aer.ad 1 Puff INH PRN Q6HRS PRN Hydroxychloroquine Sulfate 200 Mg Tablet 1 Tab PO BID Vitamin D3 (Cholecalciferol (Vitamin D3)) 1,000 Unit Tablet 1,000 Unit PO DAILY Levothyroxine Sodium 50 Mcg Tablet 75 Mcg PO DAILY Aspirin Ec (Aspirin) 81 Mg Tablet. 81 Mg PO DAILY Allergies Allergies: Coded Allergies: No Known Drug Allergies (Unverified , 05/10/18) ROS General: YES: Fatigue, Malaise, Appetite PSYCHOLOGICAL ROS: YES: Anxiety, Depression Eyes: Yes Decreased vision HEENT: YES: Heacaches ALLERGY AND IMMUNOLOGY: YES: Seasonal Allergies Respiratory: YES: Cough, Orthopnea, Shortness of breath, SOB with excertion Cardiovascular: yes Orthopnea, yes Paroxysmal Noc. Dyspnea Gastrointestinal: Yes Constipation Genitourinary: YES Incontinence, YES Other (NOCTURIA) Musculoskeletal: Yes Joint Stiffness, Yes Muscular Weakness Neurological: Yes Weakness Skin: Yes Dry Skin, Yes Hair Changes Physical Exam General: Alert, Oriented X3, Cooperative, No acute distress HEENT: Atraumatic, PERRLA Lungs: Other (FEW EXP WHEEZES) Heart: Normal S1, Normal S2, Other ( AND PROB TR) Abdomen: Normal bowel sounds, Soft, No hepatosplenomegaly Extremities: No cyanosis Skin: No breakdown, No significant lesion Neuro: Normal speech, Sensation intact Psych/Mental Status: Mental status NL, Mood NL MUSCULOSKELETAL: No joint tenderness, No deformity, No swelling Vitals VITALS Vital Signs Date Time Temp Pulse Resp B/P (MAP) Pulse Ox O2 Delivery O2 Flow Rate FiO2 05/11/18 11:00 98.3 70 19 105/53 (70) 99 Nasal Cannula 2.0 98.3 Labs Labs Laboratory Tests Test 05/10/18 15:25 05/10/18 17:55 05/10/18 17:59 05/10/18 19:50 White Blood Count 6.9 x10^3/uL (4.0-11.0) Red Blood Count 2.89 x10^6/uL (3.50-5.40) Hemoglobin 8.8 g/dL (12.0-15.5) Hematocrit 28.0 % (36.0-47.0) Mean Corpuscular Volume 97 fL (79-100) Mean Corpuscular Hemoglobin 30 pg (25-35) Mean Corpuscular Hemoglobin Concent 31 g/dL (31-37) Red Cell Distribution Width 23.1 % (11.5-14.5) Platelet Count 140 x10^3/uL (140-400) Neutrophils (%) (Auto) 76 % (31-73) Lymphocytes (%) (Auto) 17 % (24-48) Monocytes (%) (Auto) 6 % (0-9) Eosinophils (%) (Auto) 0 % (0-3) Basophils (%) (Auto) 1 % (0-3) Neutrophils # (Auto) 5.2 x10^3uL (1.8-7.7) Lymphocytes # (Auto) 1.2 x10^3/uL (1.0-4.8) Monocytes # (Auto) 0.4 x10^3/uL (0.0-1.1) Eosinophils # (Auto) 0.0 x10^3/uL (0.0-0.7) Basophils # (Auto) 0.1 x10^3/uL (0.0-0.2) Platelet Estimate Adequate (ADEQUATE) Polychromasia Present Anisocytosis Mod Macrocytosis Slight Spherocytes Occ Ovalocytes Few Prothrombin Time 12.9 SEC (11.7-14.0) Prothromb Time International Ratio 1.0 (0.8-1.1) Activated Partial Thromboplast Time 34 SEC (24-38) Sodium Level 146 mmol/L (136-145) Potassium Level 4.0 mmol/L (3.5-5.1) Chloride Level 104 mmol/L (98-107) Carbon Dioxide Level 26 mmol/L (21-32) Anion Gap 16 (6-14) Blood Urea Nitrogen 58 mg/dL (7-20) Creatinine 2.9 mg/dL (0.6-1.0) Estimated GFR (Cockcroft-Gault) 18.7 BUN/Creatinine Ratio 20 (6-20) Glucose Level 108 mg/dL (70-99) Calcium Level 9.6 mg/dL (8.5-10.1) Total Bilirubin 0.4 mg/dL (0.2-1.0) Aspartate Amino Transf (AST/SGOT) 23 U/L (15-37) Alanine Aminotransferase (ALT/SGPT) 17 U/L (14-59) Alkaline Phosphatase 127 U/L (46-116) Troponin I Quantitative < 0.017 ng/mL (0.000-0.055) < 0.017 ng/mL (0.000-0.055) EK-Ymv-H-Type Natriuretic Peptide 6185 pg/mL (0-449) Total Protein 7.1 g/dL (6.4-8.2) Albumin 2.6 g/dL (3.4-5.0) Albumin/Globulin Ratio 0.6 (1.0-1.7) Urine Collection Type U cath Urine Color Yellow Urine Clarity Clear Urine pH 5.0 Urine Specific [place] 1.020 Urine Protein Negative mg/dL (NEG-TRACE) Urine Glucose (UA) Negative mg/dL (NEG) Urine Ketones (Stick) Negative mg/dL (NEG) Urine Blood Negative (NEG) Urine Nitrite Negative (NEG) Urine Bilirubin Small (NEG) Urine Urobilinogen Dipstick 1.0 mg/dL (0.2 mg/dL) Urine Leukocyte Esterase Negative (NEG) Urine RBC Occ /HPF (0-2) Urine WBC 1-4 /HPF (0-4) Urine Squamous Epithelial Cells Few /LPF Urine Amorphous Sediment Present /HPF Urine Bacteria 0 /HPF (0-FEW) Urine Hyaline Casts Moderate /HPF Urine Mucus Slight /LPF Stool Occult Blood Positive (NEG) Test 05/10/18 22:35 05/11/18 04:48 Troponin I Quantitative < 0.017 ng/mL (0.000-0.055) White Blood Count 4.0 x10^3/uL (4.0-11.0) Red Blood Count 2.45 x10^6/uL (3.50-5.40) Hemoglobin 7.5 g/dL (12.0-15.5) Hematocrit 23.8 % (36.0-47.0) Mean Corpuscular Volume 97 fL (79-100) Mean Corpuscular Hemoglobin 31 pg (25-35) Mean Corpuscular Hemoglobin Concent 32 g/dL (31-37) Red Cell Distribution Width 22.4 % (11.5-14.5) Platelet Count 126 x10^3/uL (140-400) Neutrophils (%) (Auto) 69 % (31-73) Lymphocytes (%) (Auto) 22 % (24-48) Monocytes (%) (Auto) 8 % (0-9) Eosinophils (%) (Auto) 1 % (0-3) Basophils (%) (Auto) 0 % (0-3) Neutrophils # (Auto) 2.7 x10^3uL (1.8-7.7) Lymphocytes # (Auto) 0.9 x10^3/uL (1.0-4.8) Monocytes # (Auto) 0.3 x10^3/uL (0.0-1.1) Eosinophils # (Auto) 0.0 x10^3/uL (0.0-0.7) Basophils # (Auto) 0.0 x10^3/uL (0.0-0.2) Segmented Neutrophils % 74 % (35-66) Band Neutrophils % 1 % (0-9) Lymphocytes % 18 % (24-48) Monocytes % 7 % (0-10) Nucleated Red Blood Cells 2 Platelet Estimate Decreased (ADEQUATE) Large Platelets Occ Anisocytosis Mod Sodium Level 146 mmol/L (136-145) Potassium Level 3.8 mmol/L (3.5-5.1) Chloride Level 106 mmol/L (98-107) Carbon Dioxide Level 31 mmol/L (21-32) Anion Gap 9 (6-14) Blood Urea Nitrogen 59 mg/dL (7-20) Creatinine 2.9 mg/dL (0.6-1.0) Estimated GFR (Cockcroft-Gault) 18.7 BUN/Creatinine Ratio 20 (6-20) Glucose Level 81 mg/dL (70-99) Calcium Level 8.9 mg/dL (8.5-10.1) Total Bilirubin 0.3 mg/dL (0.2-1.0) Aspartate Amino Transf (AST/SGOT) 17 U/L (15-37) Alanine Aminotransferase (ALT/SGPT) 15 U/L (14-59) Alkaline Phosphatase 106 U/L (46-116) Total Protein 5.8 g/dL (6.4-8.2) Albumin 2.2 g/dL (3.4-5.0) Albumin/Globulin Ratio 0.6 (1.0-1.7) Laboratory Tests Test 05/10/18 15:25 05/10/18 17:55 05/10/18 17:59 05/10/18 19:50 White Blood Count 6.9 x10^3/uL (4.0-11.0) Red Blood Count 2.89 x10^6/uL (3.50-5.40) Hemoglobin 8.8 g/dL (12.0-15.5) Hematocrit 28.0 % (36.0-47.0) Mean Corpuscular Volume 97 fL (79-100) Mean Corpuscular Hemoglobin 30 pg (25-35) Mean Corpuscular Hemoglobin Concent 31 g/dL (31-37) Red Cell Distribution Width 23.1 % (11.5-14.5) Platelet Count 140 x10^3/uL (140-400) Neutrophils (%) (Auto) 76 % (31-73) Lymphocytes (%) (Auto) 17 % (24-48) Monocytes (%) (Auto) 6 % (0-9) Eosinophils (%) (Auto) 0 % (0-3) Basophils (%) (Auto) 1 % (0-3) Neutrophils # (Auto) 5.2 x10^3uL (1.8-7.7) Lymphocytes # (Auto) 1.2 x10^3/uL (1.0-4.8) Monocytes # (Auto) 0.4 x10^3/uL (0.0-1.1) Eosinophils # (Auto) 0.0 x10^3/uL (0.0-0.7) Basophils # (Auto) 0.1 x10^3/uL (0.0-0.2) Platelet Estimate Adequate (ADEQUATE) Polychromasia Present Anisocytosis Mod Macrocytosis Slight Spherocytes Occ Ovalocytes Few Prothrombin Time 12.9 SEC (11.7-14.0) Prothromb Time International Ratio 1.0 (0.8-1.1) Activated Partial Thromboplast Time 34 SEC (24-38) Sodium Level 146 mmol/L (136-145) Potassium Level 4.0 mmol/L (3.5-5.1) Chloride Level 104 mmol/L (98-107) Carbon Dioxide Level 26 mmol/L (21-32) Anion Gap 16 (6-14) Blood Urea Nitrogen 58 mg/dL (7-20) Creatinine 2.9 mg/dL (0.6-1.0) Estimated GFR (Cockcroft-Gault) 18.7 BUN/Creatinine Ratio 20 (6-20) Glucose Level 108 mg/dL (70-99) Calcium Level 9.6 mg/dL (8.5-10.1) Total Bilirubin 0.4 mg/dL (0.2-1.0) Aspartate Amino Transf (AST/SGOT) 23 U/L (15-37) Alanine Aminotransferase (ALT/SGPT) 17 U/L (14-59) Alkaline Phosphatase 127 U/L (46-116) Troponin I Quantitative < 0.017 ng/mL (0.000-0.055) < 0.017 ng/mL (0.000-0.055) DW-Hon-G-Type Natriuretic Peptide 6185 pg/mL (0-449) Total Protein 7.1 g/dL (6.4-8.2) Albumin 2.6 g/dL (3.4-5.0) Albumin/Globulin Ratio 0.6 (1.0-1.7) Urine Collection Type U cath Urine Color Yellow Urine Clarity Clear Urine pH 5.0 Urine Specific [place] 1.020 Urine Protein Negative mg/dL (NEG-TRACE) Urine Glucose (UA) Negative mg/dL (NEG) Urine Ketones (Stick) Negative mg/dL (NEG) Urine Blood Negative (NEG) Urine Nitrite Negative (NEG) Urine Bilirubin Small (NEG) Urine Urobilinogen Dipstick 1.0 mg/dL (0.2 mg/dL) Urine Leukocyte Esterase Negative (NEG) Urine RBC Occ /HPF (0-2) Urine WBC 1-4 /HPF (0-4) Urine Squamous Epithelial Cells Few /LPF Urine Amorphous Sediment Present /HPF Urine Bacteria 0 /HPF (0-FEW) Urine Hyaline Casts Moderate /HPF Urine Mucus Slight /LPF Stool Occult Blood Positive (NEG) Test 05/10/18 22:35 05/11/18 04:48 Troponin I Quantitative < 0.017 ng/mL (0.000-0.055) White Blood Count 4.0 x10^3/uL (4.0-11.0) Red Blood Count 2.45 x10^6/uL (3.50-5.40) Hemoglobin 7.5 g/dL (12.0-15.5) Hematocrit 23.8 % (36.0-47.0) Mean Corpuscular Volume 97 fL (79-100) Mean Corpuscular Hemoglobin 31 pg (25-35) Mean Corpuscular Hemoglobin Concent 32 g/dL (31-37) Red Cell Distribution Width 22.4 % (11.5-14.5) Platelet Count 126 x10^3/uL (140-400) Neutrophils (%) (Auto) 69 % (31-73) Lymphocytes (%) (Auto) 22 % (24-48) Monocytes (%) (Auto) 8 % (0-9) Eosinophils (%) (Auto) 1 % (0-3) Basophils (%) (Auto) 0 % (0-3) Neutrophils # (Auto) 2.7 x10^3uL (1.8-7.7) Lymphocytes # (Auto) 0.9 x10^3/uL (1.0-4.8) Monocytes # (Auto) 0.3 x10^3/uL (0.0-1.1) Eosinophils # (Auto) 0.0 x10^3/uL (0.0-0.7) Basophils # (Auto) 0.0 x10^3/uL (0.0-0.2) Segmented Neutrophils % 74 % (35-66) Band Neutrophils % 1 % (0-9) Lymphocytes % 18 % (24-48) Monocytes % 7 % (0-10) Nucleated Red Blood Cells 2 Platelet Estimate Decreased (ADEQUATE) Large Platelets Occ Anisocytosis Mod Sodium Level 146 mmol/L (136-145) Potassium Level 3.8 mmol/L (3.5-5.1) Chloride Level 106 mmol/L (98-107) Carbon Dioxide Level 31 mmol/L (21-32) Anion Gap 9 (6-14) Blood Urea Nitrogen 59 mg/dL (7-20) Creatinine 2.9 mg/dL (0.6-1.0) Estimated GFR (Cockcroft-Gault) 18.7 BUN/Creatinine Ratio 20 (6-20) Glucose Level 81 mg/dL (70-99) Calcium Level 8.9 mg/dL (8.5-10.1) Total Bilirubin 0.3 mg/dL (0.2-1.0) Aspartate Amino Transf (AST/SGOT) 17 U/L (15-37) Alanine Aminotransferase (ALT/SGPT) 15 U/L (14-59) Alkaline Phosphatase 106 U/L (46-116) Total Protein 5.8 g/dL (6.4-8.2) Albumin 2.2 g/dL (3.4-5.0) Albumin/Globulin Ratio 0.6 (1.0-1.7) Assessment/Plan Assessment/Plan IMP DYSPNEA - PROB MULTIFACTORIAL HEMAL WITH CR OF 2.9 CKD STAGE 4 WITH CR OF 2.0 ANEMIA OF CKD DECONDITIONING FATIGUE DUE TO ANEMIA PROB HX OF SINGLE VESSEL CAD HX OF VALVULAR HEART DZ HX OF PULMONARY HTN PLAN PRBC CHECK IRON START ARANESP MAY NEED CONTINUOUS O2 PULM EVAL CARDIAC EVAL LOW FLOW IVF'S D/W ATTENDING UPDATED FAMILY WILL FOLLOW MARBIN MORGAN MD May 11, 2018 14:18
--- NOTE | 2018-05-11 14:40 | PDOC ---
PROGRESS NOTES Chief Complaint Chief Complaint Acute hypoxic resp failure Chronic upper lobe pulmonary infiltrates, right greater than left, have improved slightly since 04/03/2018. GENERALIZED WEAKNESS ANEMIA, NORMOCYTIC WITH HEME POS STOOL IN ER RECENT ECHO C/W Doppler and Color Flow revealed moderately severe tricuspid regurgitation. Severe pulmonary hypertension. 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 Mildly elevated left ventricular pressure. Acute renal injury baseline cr approx 1.7 -2.0 ATN History of Present Illness History of Present Illness Pt was seen and examined today, feeling SOB and was coughing occasionally Sitting in bed eating lunch Family was present at bedside Discussed with Dr Ng in the patient's room Explained to pt that her SOB is likely multifactorial- s/s point to etiology being potentially anemia, heart, lungs, kidneys Answered family's questions and explained plan No further complaints Vitals Vitals Vital Signs Date Time Temp Pulse Resp B/P (MAP) Pulse Ox O2 Delivery O2 Flow Rate FiO2 05/11/18 11:00 98.3 70 19 105/53 (70) 99 Nasal Cannula 2.0 98.3 Physical Exam General: Alert, Oriented X3, Cooperative, No acute distress Heart: Normal S1, Normal S2, Other ( AND PROB TR) Lungs: Clear Abdomen: Normal bowel sounds, Soft, No hepatosplenomegaly Extremities: No cyanosis Skin: No breakdown, No significant lesion Labs LABS Laboratory Tests Test 05/10/18 15:25 05/10/18 17:55 05/10/18 17:59 05/10/18 19:50 White Blood Count 6.9 x10^3/uL (4.0-11.0) Red Blood Count 2.89 x10^6/uL (3.50-5.40) Hemoglobin 8.8 g/dL (12.0-15.5) Hematocrit 28.0 % (36.0-47.0) Mean Corpuscular Volume 97 fL (79-100) Mean Corpuscular Hemoglobin 30 pg (25-35) Mean Corpuscular Hemoglobin Concent 31 g/dL (31-37) Red Cell Distribution Width 23.1 % (11.5-14.5) Platelet Count 140 x10^3/uL (140-400) Neutrophils (%) (Auto) 76 % (31-73) Lymphocytes (%) (Auto) 17 % (24-48) Monocytes (%) (Auto) 6 % (0-9) Eosinophils (%) (Auto) 0 % (0-3) Basophils (%) (Auto) 1 % (0-3) Neutrophils # (Auto) 5.2 x10^3uL (1.8-7.7) Lymphocytes # (Auto) 1.2 x10^3/uL (1.0-4.8) Monocytes # (Auto) 0.4 x10^3/uL (0.0-1.1) Eosinophils # (Auto) 0.0 x10^3/uL (0.0-0.7) Basophils # (Auto) 0.1 x10^3/uL (0.0-0.2) Platelet Estimate Adequate (ADEQUATE) Polychromasia Present Anisocytosis Mod Macrocytosis Slight Spherocytes Occ Ovalocytes Few Prothrombin Time 12.9 SEC (11.7-14.0) Prothromb Time International Ratio 1.0 (0.8-1.1) Activated Partial Thromboplast Time 34 SEC (24-38) Sodium Level 146 mmol/L (136-145) Potassium Level 4.0 mmol/L (3.5-5.1) Chloride Level 104 mmol/L (98-107) Carbon Dioxide Level 26 mmol/L (21-32) Anion Gap 16 (6-14) Blood Urea Nitrogen 58 mg/dL (7-20) Creatinine 2.9 mg/dL (0.6-1.0) Estimated GFR (Cockcroft-Gault) 18.7 BUN/Creatinine Ratio 20 (6-20) Glucose Level 108 mg/dL (70-99) Calcium Level 9.6 mg/dL (8.5-10.1) Total Bilirubin 0.4 mg/dL (0.2-1.0) Aspartate Amino Transf (AST/SGOT) 23 U/L (15-37) Alanine Aminotransferase (ALT/SGPT) 17 U/L (14-59) Alkaline Phosphatase 127 U/L (46-116) Troponin I Quantitative < 0.017 ng/mL (0.000-0.055) < 0.017 ng/mL (0.000-0.055) OH-Mre-A-Type Natriuretic Peptide 6185 pg/mL (0-449) Total Protein 7.1 g/dL (6.4-8.2) Albumin 2.6 g/dL (3.4-5.0) Albumin/Globulin Ratio 0.6 (1.0-1.7) Urine Collection Type U cath Urine Color Yellow Urine Clarity Clear Urine pH 5.0 Urine Specific [place] 1.020 Urine Protein Negative mg/dL (NEG-TRACE) Urine Glucose (UA) Negative mg/dL (NEG) Urine Ketones (Stick) Negative mg/dL (NEG) Urine Blood Negative (NEG) Urine Nitrite Negative (NEG) Urine Bilirubin Small (NEG) Urine Urobilinogen Dipstick 1.0 mg/dL (0.2 mg/dL) Urine Leukocyte Esterase Negative (NEG) Urine RBC Occ /HPF (0-2) Urine WBC 1-4 /HPF (0-4) Urine Squamous Epithelial Cells Few /LPF Urine Amorphous Sediment Present /HPF Urine Bacteria 0 /HPF (0-FEW) Urine Hyaline Casts Moderate /HPF Urine Mucus Slight /LPF Stool Occult Blood Positive (NEG) Test 05/10/18 22:35 05/11/18 04:48 Troponin I Quantitative < 0.017 ng/mL (0.000-0.055) White Blood Count 4.0 x10^3/uL (4.0-11.0) Red Blood Count 2.45 x10^6/uL (3.50-5.40) Hemoglobin 7.5 g/dL (12.0-15.5) Hematocrit 23.8 % (36.0-47.0) Mean Corpuscular Volume 97 fL (79-100) Mean Corpuscular Hemoglobin 31 pg (25-35) Mean Corpuscular Hemoglobin Concent 32 g/dL (31-37) Red Cell Distribution Width 22.4 % (11.5-14.5) Platelet Count 126 x10^3/uL (140-400) Neutrophils (%) (Auto) 69 % (31-73) Lymphocytes (%) (Auto) 22 % (24-48) Monocytes (%) (Auto) 8 % (0-9) Eosinophils (%) (Auto) 1 % (0-3) Basophils (%) (Auto) 0 % (0-3) Neutrophils # (Auto) 2.7 x10^3uL (1.8-7.7) Lymphocytes # (Auto) 0.9 x10^3/uL (1.0-4.8) Monocytes # (Auto) 0.3 x10^3/uL (0.0-1.1) Eosinophils # (Auto) 0.0 x10^3/uL (0.0-0.7) Basophils # (Auto) 0.0 x10^3/uL (0.0-0.2) Segmented Neutrophils % 74 % (35-66) Band Neutrophils % 1 % (0-9) Lymphocytes % 18 % (24-48) Monocytes % 7 % (0-10) Nucleated Red Blood Cells 2 Platelet Estimate Decreased (ADEQUATE) Large Platelets Occ Anisocytosis Mod Sodium Level 146 mmol/L (136-145) Potassium Level 3.8 mmol/L (3.5-5.1) Chloride Level 106 mmol/L (98-107) Carbon Dioxide Level 31 mmol/L (21-32) Anion Gap 9 (6-14) Blood Urea Nitrogen 59 mg/dL (7-20) Creatinine 2.9 mg/dL (0.6-1.0) Estimated GFR (Cockcroft-Gault) 18.7 BUN/Creatinine Ratio 20 (6-20) Glucose Level 81 mg/dL (70-99) Calcium Level 8.9 mg/dL (8.5-10.1) Total Bilirubin 0.3 mg/dL (0.2-1.0) Aspartate Amino Transf (AST/SGOT) 17 U/L (15-37) Alanine Aminotransferase (ALT/SGPT) 15 U/L (14-59) Alkaline Phosphatase 106 U/L (46-116) Total Protein 5.8 g/dL (6.4-8.2) Albumin 2.2 g/dL (3.4-5.0) Albumin/Globulin Ratio 0.6 (1.0-1.7) Review of Systems Review of Systems Pt reports cough, SOB Denies CP, BARKER, n/v Assessment and Plan Assessmemt and Plan Problems Medical Problems: (1) Acute electrocardiogram changes Status: Acute (2) Dyspnea Status: Acute Assessment: Acute hypoxic resp failure Chronic upper lobe pulmonary infiltrates, right greater than left, have improved slightly since 04/03/2018. GENERALIZED WEAKNESS ANEMIA, NORMOCYTIC - takes Procrit shots regularly Acute renal injury baseline cr approx 1.7 -2.0 ATN HEME POS STOOL IN ER RECENT ECHO C/W Doppler and Color Flow revealed moderately severe tricuspid regurgitation. Severe pulmonary hypertension. 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 Mildly elevated left ventricular pressure. Plan: V/Q scan low probability study Anemia- hold anticoagulation Pt missed recent Procrit shot- likely adding to current anemia O2 support Will Transfuse today- 1 unit Morning Labs Home meds PT/OT DVT prophylaxis Cardiology, Pulmonology, Nephrology following- appreciate recs Will hopefully D/C soon if subspecialties agree Comment Review of Relevant I have reviewed the following items kade (where applicable) has been applied. Labs Laboratory Tests Test 05/10/18 15:25 05/10/18 17:55 05/10/18 17:59 05/10/18 19:50 White Blood Count 6.9 x10^3/uL (4.0-11.0) Red Blood Count 2.89 x10^6/uL (3.50-5.40) Hemoglobin 8.8 g/dL (12.0-15.5) Hematocrit 28.0 % (36.0-47.0) Mean Corpuscular Volume 97 fL (79-100) Mean Corpuscular Hemoglobin 30 pg (25-35) Mean Corpuscular Hemoglobin Concent 31 g/dL (31-37) Red Cell Distribution Width 23.1 % (11.5-14.5) Platelet Count 140 x10^3/uL (140-400) Neutrophils (%) (Auto) 76 % (31-73) Lymphocytes (%) (Auto) 17 % (24-48) Monocytes (%) (Auto) 6 % (0-9) Eosinophils (%) (Auto) 0 % (0-3) Basophils (%) (Auto) 1 % (0-3) Neutrophils # (Auto) 5.2 x10^3uL (1.8-7.7) Lymphocytes # (Auto) 1.2 x10^3/uL (1.0-4.8) Monocytes # (Auto) 0.4 x10^3/uL (0.0-1.1) Eosinophils # (Auto) 0.0 x10^3/uL (0.0-0.7) Basophils # (Auto) 0.1 x10^3/uL (0.0-0.2) Platelet Estimate Adequate (ADEQUATE) Polychromasia Present Anisocytosis Mod Macrocytosis Slight Spherocytes Occ Ovalocytes Few Prothrombin Time 12.9 SEC (11.7-14.0) Prothromb Time International Ratio 1.0 (0.8-1.1) Activated Partial Thromboplast Time 34 SEC (24-38) Sodium Level 146 mmol/L (136-145) Potassium Level 4.0 mmol/L (3.5-5.1) Chloride Level 104 mmol/L (98-107) Carbon Dioxide Level 26 mmol/L (21-32) Anion Gap 16 (6-14) Blood Urea Nitrogen 58 mg/dL (7-20) Creatinine 2.9 mg/dL (0.6-1.0) Estimated GFR (Cockcroft-Gault) 18.7 BUN/Creatinine Ratio 20 (6-20) Glucose Level 108 mg/dL (70-99) Calcium Level 9.6 mg/dL (8.5-10.1) Total Bilirubin 0.4 mg/dL (0.2-1.0) Aspartate Amino Transf (AST/SGOT) 23 U/L (15-37) Alanine Aminotransferase (ALT/SGPT) 17 U/L (14-59) Alkaline Phosphatase 127 U/L (46-116) Troponin I Quantitative < 0.017 ng/mL (0.000-0.055) < 0.017 ng/mL (0.000-0.055) AT-Plv-S-Type Natriuretic Peptide 6185 pg/mL (0-449) Total Protein 7.1 g/dL (6.4-8.2) Albumin 2.6 g/dL (3.4-5.0) Albumin/Globulin Ratio 0.6 (1.0-1.7) Urine Collection Type U cath Urine Color Yellow Urine Clarity Clear Urine pH 5.0 Urine Specific [place] 1.020 Urine Protein Negative mg/dL (NEG-TRACE) Urine Glucose (UA) Negative mg/dL (NEG) Urine Ketones (Stick) Negative mg/dL (NEG) Urine Blood Negative (NEG) Urine Nitrite Negative (NEG) Urine Bilirubin Small (NEG) Urine Urobilinogen Dipstick 1.0 mg/dL (0.2 mg/dL) Urine Leukocyte Esterase Negative (NEG) Urine RBC Occ /HPF (0-2) Urine WBC 1-4 /HPF (0-4) Urine Squamous Epithelial Cells Few /LPF Urine Amorphous Sediment Present /HPF Urine Bacteria 0 /HPF (0-FEW) Urine Hyaline Casts Moderate /HPF Urine Mucus Slight /LPF Stool Occult Blood Positive (NEG) Test 05/10/18 22:35 05/11/18 04:48 Troponin I Quantitative < 0.017 ng/mL (0.000-0.055) White Blood Count 4.0 x10^3/uL (4.0-11.0) Red Blood Count 2.45 x10^6/uL (3.50-5.40) Hemoglobin 7.5 g/dL (12.0-15.5) Hematocrit 23.8 % (36.0-47.0) Mean Corpuscular Volume 97 fL (79-100) Mean Corpuscular Hemoglobin 31 pg (25-35) Mean Corpuscular Hemoglobin Concent 32 g/dL (31-37) Red Cell Distribution Width 22.4 % (11.5-14.5) Platelet Count 126 x10^3/uL (140-400) Neutrophils (%) (Auto) 69 % (31-73) Lymphocytes (%) (Auto) 22 % (24-48) Monocytes (%) (Auto) 8 % (0-9) Eosinophils (%) (Auto) 1 % (0-3) Basophils (%) (Auto) 0 % (0-3) Neutrophils # (Auto) 2.7 x10^3uL (1.8-7.7) Lymphocytes # (Auto) 0.9 x10^3/uL (1.0-4.8) Monocytes # (Auto) 0.3 x10^3/uL (0.0-1.1) Eosinophils # (Auto) 0.0 x10^3/uL (0.0-0.7) Basophils # (Auto) 0.0 x10^3/uL (0.0-0.2) Segmented Neutrophils % 74 % (35-66) Band Neutrophils % 1 % (0-9) Lymphocytes % 18 % (24-48) Monocytes % 7 % (0-10) Nucleated Red Blood Cells 2 Platelet Estimate Decreased (ADEQUATE) Large Platelets Occ Anisocytosis Mod Sodium Level 146 mmol/L (136-145) Potassium Level 3.8 mmol/L (3.5-5.1) Chloride Level 106 mmol/L (98-107) Carbon Dioxide Level 31 mmol/L (21-32) Anion Gap 9 (6-14) Blood Urea Nitrogen 59 mg/dL (7-20) Creatinine 2.9 mg/dL (0.6-1.0) Estimated GFR (Cockcroft-Gault) 18.7 BUN/Creatinine Ratio 20 (6-20) Glucose Level 81 mg/dL (70-99) Calcium Level 8.9 mg/dL (8.5-10.1) Total Bilirubin 0.3 mg/dL (0.2-1.0) Aspartate Amino Transf (AST/SGOT) 17 U/L (15-37) Alanine Aminotransferase (ALT/SGPT) 15 U/L (14-59) Alkaline Phosphatase 106 U/L (46-116) Total Protein 5.8 g/dL (6.4-8.2) Albumin 2.2 g/dL (3.4-5.0) Albumin/Globulin Ratio 0.6 (1.0-1.7) Laboratory Tests Test 05/10/18 15:25 05/10/18 17:55 05/10/18 17:59 05/10/18 19:50 White Blood Count 6.9 x10^3/uL (4.0-11.0) Red Blood Count 2.89 x10^6/uL (3.50-5.40) Hemoglobin 8.8 g/dL (12.0-15.5) Hematocrit 28.0 % (36.0-47.0) Mean Corpuscular Volume 97 fL (79-100) Mean Corpuscular Hemoglobin 30 pg (25-35) Mean Corpuscular Hemoglobin Concent 31 g/dL (31-37) Red Cell Distribution Width 23.1 % (11.5-14.5) Platelet Count 140 x10^3/uL (140-400) Neutrophils (%) (Auto) 76 % (31-73) Lymphocytes (%) (Auto) 17 % (24-48) Monocytes (%) (Auto) 6 % (0-9) Eosinophils (%) (Auto) 0 % (0-3) Basophils (%) (Auto) 1 % (0-3) Neutrophils # (Auto) 5.2 x10^3uL (1.8-7.7) Lymphocytes # (Auto) 1.2 x10^3/uL (1.0-4.8) Monocytes # (Auto) 0.4 x10^3/uL (0.0-1.1) Eosinophils # (Auto) 0.0 x10^3/uL (0.0-0.7) Basophils # (Auto) 0.1 x10^3/uL (0.0-0.2) Platelet Estimate Adequate (ADEQUATE) Polychromasia Present Anisocytosis Mod Macrocytosis Slight Spherocytes Occ Ovalocytes Few Prothrombin Time 12.9 SEC (11.7-14.0) Prothromb Time International Ratio 1.0 (0.8-1.1) Activated Partial Thromboplast Time 34 SEC (24-38) Sodium Level 146 mmol/L (136-145) Potassium Level 4.0 mmol/L (3.5-5.1) Chloride Level 104 mmol/L (98-107) Carbon Dioxide Level 26 mmol/L (21-32) Anion Gap 16 (6-14) Blood Urea Nitrogen 58 mg/dL (7-20) Creatinine 2.9 mg/dL (0.6-1.0) Estimated GFR (Cockcroft-Gault) 18.7 BUN/Creatinine Ratio 20 (6-20) Glucose Level 108 mg/dL (70-99) Calcium Level 9.6 mg/dL (8.5-10.1) Total Bilirubin 0.4 mg/dL (0.2-1.0) Aspartate Amino Transf (AST/SGOT) 23 U/L (15-37) Alanine Aminotransferase (ALT/SGPT) 17 U/L (14-59) Alkaline Phosphatase 127 U/L (46-116) Troponin I Quantitative < 0.017 ng/mL (0.000-0.055) < 0.017 ng/mL (0.000-0.055) MI-Bbf-D-Type Natriuretic Peptide 6185 pg/mL (0-449) Total Protein 7.1 g/dL (6.4-8.2) Albumin 2.6 g/dL (3.4-5.0) Albumin/Globulin Ratio 0.6 (1.0-1.7) Urine Collection Type U cath Urine Color Yellow Urine Clarity Clear Urine pH 5.0 Urine Specific [place] 1.020 Urine Protein Negative mg/dL (NEG-TRACE) Urine Glucose (UA) Negative mg/dL (NEG) Urine Ketones (Stick) Negative mg/dL (NEG) Urine Blood Negative (NEG) Urine Nitrite Negative (NEG) Urine Bilirubin Small (NEG) Urine Urobilinogen Dipstick 1.0 mg/dL (0.2 mg/dL) Urine Leukocyte Esterase Negative (NEG) Urine RBC Occ /HPF (0-2) Urine WBC 1-4 /HPF (0-4) Urine Squamous Epithelial Cells Few /LPF Urine Amorphous Sediment Present /HPF Urine Bacteria 0 /HPF (0-FEW) Urine Hyaline Casts Moderate /HPF Urine Mucus Slight /LPF Stool Occult Blood Positive (NEG) Test 05/10/18 22:35 05/11/18 04:48 Troponin I Quantitative < 0.017 ng/mL (0.000-0.055) White Blood Count 4.0 x10^3/uL (4.0-11.0) Red Blood Count 2.45 x10^6/uL (3.50-5.40) Hemoglobin 7.5 g/dL (12.0-15.5) Hematocrit 23.8 % (36.0-47.0) Mean Corpuscular Volume 97 fL (79-100) Mean Corpuscular Hemoglobin 31 pg (25-35) Mean Corpuscular Hemoglobin Concent 32 g/dL (31-37) Red Cell Distribution Width 22.4 % (11.5-14.5) Platelet Count 126 x10^3/uL (140-400) Neutrophils (%) (Auto) 69 % (31-73) Lymphocytes (%) (Auto) 22 % (24-48) Monocytes (%) (Auto) 8 % (0-9) Eosinophils (%) (Auto) 1 % (0-3) Basophils (%) (Auto) 0 % (0-3) Neutrophils # (Auto) 2.7 x10^3uL (1.8-7.7) Lymphocytes # (Auto) 0.9 x10^3/uL (1.0-4.8) Monocytes # (Auto) 0.3 x10^3/uL (0.0-1.1) Eosinophils # (Auto) 0.0 x10^3/uL (0.0-0.7) Basophils # (Auto) 0.0 x10^3/uL (0.0-0.2) Segmented Neutrophils % 74 % (35-66) Band Neutrophils % 1 % (0-9) Lymphocytes % 18 % (24-48) Monocytes % 7 % (0-10) Nucleated Red Blood Cells 2 Platelet Estimate Decreased (ADEQUATE) Large Platelets Occ Anisocytosis Mod Sodium Level 146 mmol/L (136-145) Potassium Level 3.8 mmol/L (3.5-5.1) Chloride Level 106 mmol/L (98-107) Carbon Dioxide Level 31 mmol/L (21-32) Anion Gap 9 (6-14) Blood Urea Nitrogen 59 mg/dL (7-20) Creatinine 2.9 mg/dL (0.6-1.0) Estimated GFR (Cockcroft-Gault) 18.7 BUN/Creatinine Ratio 20 (6-20) Glucose Level 81 mg/dL (70-99) Calcium Level 8.9 mg/dL (8.5-10.1) Total Bilirubin 0.3 mg/dL (0.2-1.0) Aspartate Amino Transf (AST/SGOT) 17 U/L (15-37) Alanine Aminotransferase (ALT/SGPT) 15 U/L (14-59) Alkaline Phosphatase 106 U/L (46-116) Total Protein 5.8 g/dL (6.4-8.2) Albumin 2.2 g/dL (3.4-5.0) Albumin/Globulin Ratio 0.6 (1.0-1.7) Medications Current Medications Aspirin (Children'S Aspirin) 324 mg 1X ONCE PO ; Start 05/10/18 at 15:15; Stop 05/10/18 at 15:20; Status DC Acetaminophen (Tylenol) 650 mg PRN Q4HRS PRN PO PAIN; Start 05/10/18 at 17:00; Stop 05/11/18 at 16:59 Aspirin (Children'S Aspirin) 324 mg 1X ONCE PO Last administered on 05/10/18at 21:31; Start 05/10/18 at 18:00; Stop 05/10/18 at 18:01; Status DC Albuterol Sulfate (Ventolin Neb Soln) 2.5 mg PRN Q6HRS PRN INH SHORTNESS OF BREATH; Start 05/10/18 at 20:15; Stop 05/10/18 at 20:49; Status DC Aspirin (Ecotrin) 81 mg DAILY PO Last administered on 05/11/18at 08:26; Start at 09:00 Vitamin D (Vitamin D3) 1,000 unit DAILY PO Last administered on 05/11/18at 08:26 ; Start 05/11/18 at 09:00 Ferrous Sulfate (Feosol) 325 mg QODAY PO ; Start 05/12/18 at 09:00 Albuterol/ Ipratropium (Duoneb) 3 ml Q4HRS NEB ; Start 05/11/18 at 00:00; Stop 05/11/18 at 00:00; Status DC Metoprolol Succinate (Toprol Xl) 25 mg DAILY PO Last administered on 05/11/18at 08:27; Start 05/11/18 at 09:00 Levothyroxine Sodium (Synthroid) 75 mcg DAILY06 PO Last administered on at 06:04; Start 05/11/18 at 06:00 Heparin Sodium (Porcine) (Heparin Sodium) 5,000 unit Q8HRS SQ Last administered on 05/10/18at 21:34; Start 05/10/18 at 22:00 Sodium Chloride 1,000 ml @ 75 mls/hr [id number] IV Last administered on at 08:29; Start 05/10/18 at 20:30 Albuterol Sulfate (Ventolin Neb Soln) 2.5 mg PRN Q4HRS PRN NEB SHORTNESS OF BREATH; Start 05/10/18 at 21:00 Atorvastatin Calcium (Lipitor) 20 mg QHS PO ; Start 05/11/18 at 21:00 Darbepoetin [place] (Aranesp) 60 mcg WEEKLYHS SQ ; Start 05/11/18 at 21:00 Active Scripts Active Duoneb 0.5-3(2.5) Mg/3 Ml (Albuterol/Ipratropium) 3 Ml Ampul.neb 3 Ml NEB 1X 30 Days Prednisone (Prednisone) 10 Mg Tablet 10 Mg PO DAILY 28 Days Please take 4 tabs po daily for 5 days then 3 tabs po daily for 7 days then 2 tabs po daily for 7 days and then continue with 1 tab po daily Metoprolol Succinate ( Xl ) (Metoprolol Succinate) 25 Mg Tab.er.24h 25 Mg PO DAILY 30 Days Reported Ferrous Sulfate 325 Mg Tablet 325 Mg PO QODAY Proair Hfa Inhaler (Albuterol Sulfate) 8.5 Gm Hfa.aer.ad 1 Puff INH PRN Q6HRS PRN Hydroxychloroquine Sulfate 200 Mg Tablet 1 Tab PO BID Vitamin D3 (Cholecalciferol (Vitamin D3)) 1,000 Unit Tablet 1,000 Unit PO DAILY Levothyroxine Sodium 50 Mcg Tablet 75 Mcg PO DAILY Aspirin Ec (Aspirin) 81 Mg Tablet.dr 81 Mg PO DAILY Vitals/I & O Vital Sign - Last 24 Hours 05/10/18 05/10/18 05/10/18 05/10/18 14:55 16:01 17:01 18:01 Temp 95.7 95.7 Pulse 98 88 95 99 Resp 20 24 20 20 B/P (MAP) 110/58 (75) 111/55 (73) 106/51 (69) 106/66 (79) Pulse Ox 99 100 99 99 O2 Delivery Room Air Room Air Nasal Cannula Nasal Cannula O2 Flow Rate 2.0 2.0 05/10/18 05/10/18 05/10/18 05/10/18 18:24 19:25 20:00 20:40 Temp 97.9 97.9 Pulse 95 84 Resp 17 B/P (MAP) 134/62 (86) 122/67 (85) Pulse Ox 100 99 96 O2 Delivery Nasal Cannula Nasal Cannula Nasal Cannula Nasal Cannula O2 Flow Rate 2.0 2.0 2.0 2.0 05/10/18 05/11/18 05/11/18 05/11/18 23:35 03:15 07:00 08:00 Temp 97.8 98.0 98.1 97.8 98.0 98.1 Pulse 89 77 77 Resp 17 16 18 B/P (MAP) 121/70 (87) 127/58 (81) 113/55 (74) Pulse Ox 99 98 100 O2 Delivery Nasal Cannula Nasal Cannula Nasal Cannula Nasal Cannula O2 Flow Rate 2.0 2.0 2.0 2.0 05/11/18 05/11/18 05/11/18 08:27 08:44 11:00 Temp 98.1 98.3 98.1 98.3 Pulse 69 77 70 Resp 19 B/P (MAP) 138/66 113/55 (74) 105/53 (70) Pulse Ox 100 99 O2 Delivery Nasal Cannula Nasal Cannula O2 Flow Rate 2.0 2.0 Intake and Output 05/10/18 05/10/18 05/11/18 15:00 23:00 07:00 Intake Total 250 ml Balance 250 ml YANA EARL III, DO May 11, 2018 14:39
--- NOTE | 2018-05-11 16:20 | PDOC ---
PULMONARY PROGRESS NOTES Vitals Vital Signs Date Time Temp Pulse Resp B/P (MAP) Pulse Ox O2 Delivery O2 Flow Rate FiO2 05/11/18 15:12 98.4 69 16 98/41 (60) 94 Nasal Cannula 2.0 98.4 General: Alert, No acute distress Lungs: Clear Cardiovascular: S1, S2 Abdomen: Soft, Non-tender Extremities: Other Labs Laboratory Tests Test 05/10/18 15:25 05/10/18 17:55 05/10/18 17:59 05/10/18 19:50 White Blood Count 6.9 x10^3/uL (4.0-11.0) Red Blood Count 2.89 x10^6/uL (3.50-5.40) Hemoglobin 8.8 g/dL (12.0-15.5) Hematocrit 28.0 % (36.0-47.0) Mean Corpuscular Volume 97 fL (79-100) Mean Corpuscular Hemoglobin 30 pg (25-35) Mean Corpuscular Hemoglobin Concent 31 g/dL (31-37) Red Cell Distribution Width 23.1 % (11.5-14.5) Platelet Count 140 x10^3/uL (140-400) Neutrophils (%) (Auto) 76 % (31-73) Lymphocytes (%) (Auto) 17 % (24-48) Monocytes (%) (Auto) 6 % (0-9) Eosinophils (%) (Auto) 0 % (0-3) Basophils (%) (Auto) 1 % (0-3) Neutrophils # (Auto) 5.2 x10^3uL (1.8-7.7) Lymphocytes # (Auto) 1.2 x10^3/uL (1.0-4.8) Monocytes # (Auto) 0.4 x10^3/uL (0.0-1.1) Eosinophils # (Auto) 0.0 x10^3/uL (0.0-0.7) Basophils # (Auto) 0.1 x10^3/uL (0.0-0.2) Platelet Estimate Adequate (ADEQUATE) Polychromasia Present Anisocytosis Mod Macrocytosis Slight Spherocytes Occ Ovalocytes Few Prothrombin Time 12.9 SEC (11.7-14.0) Prothromb Time International Ratio 1.0 (0.8-1.1) Activated Partial Thromboplast Time 34 SEC (24-38) Sodium Level 146 mmol/L (136-145) Potassium Level 4.0 mmol/L (3.5-5.1) Chloride Level 104 mmol/L (98-107) Carbon Dioxide Level 26 mmol/L (21-32) Anion Gap 16 (6-14) Blood Urea Nitrogen 58 mg/dL (7-20) Creatinine 2.9 mg/dL (0.6-1.0) Estimated GFR (Cockcroft-Gault) 18.7 BUN/Creatinine Ratio 20 (6-20) Glucose Level 108 mg/dL (70-99) Calcium Level 9.6 mg/dL (8.5-10.1) Total Bilirubin 0.4 mg/dL (0.2-1.0) Aspartate Amino Transf (AST/SGOT) 23 U/L (15-37) Alanine Aminotransferase (ALT/SGPT) 17 U/L (14-59) Alkaline Phosphatase 127 U/L (46-116) Troponin I Quantitative < 0.017 ng/mL (0.000-0.055) < 0.017 ng/mL (0.000-0.055) IC-Mot-G-Type Natriuretic Peptide 6185 pg/mL (0-449) Total Protein 7.1 g/dL (6.4-8.2) Albumin 2.6 g/dL (3.4-5.0) Albumin/Globulin Ratio 0.6 (1.0-1.7) Urine Collection Type U cath Urine Color Yellow Urine Clarity Clear Urine pH 5.0 Urine Specific Reading 1.020 Urine Protein Negative mg/dL (NEG-TRACE) Urine Glucose (UA) Negative mg/dL (NEG) Urine Ketones (Stick) Negative mg/dL (NEG) Urine Blood Negative (NEG) Urine Nitrite Negative (NEG) Urine Bilirubin Small (NEG) Urine Urobilinogen Dipstick 1.0 mg/dL (0.2 mg/dL) Urine Leukocyte Esterase Negative (NEG) Urine RBC Occ /HPF (0-2) Urine WBC 1-4 /HPF (0-4) Urine Squamous Epithelial Cells Few /LPF Urine Amorphous Sediment Present /HPF Urine Bacteria 0 /HPF (0-FEW) Urine Hyaline Casts Moderate /HPF Urine Mucus Slight /LPF Stool Occult Blood Positive (NEG) Test 05/10/18 22:35 05/11/18 04:48 Troponin I Quantitative < 0.017 ng/mL (0.000-0.055) White Blood Count 4.0 x10^3/uL (4.0-11.0) Red Blood Count 2.45 x10^6/uL (3.50-5.40) Hemoglobin 7.5 g/dL (12.0-15.5) Hematocrit 23.8 % (36.0-47.0) Mean Corpuscular Volume 97 fL (79-100) Mean Corpuscular Hemoglobin 31 pg (25-35) Mean Corpuscular Hemoglobin Concent 32 g/dL (31-37) Red Cell Distribution Width 22.4 % (11.5-14.5) Platelet Count 126 x10^3/uL (140-400) Neutrophils (%) (Auto) 69 % (31-73) Lymphocytes (%) (Auto) 22 % (24-48) Monocytes (%) (Auto) 8 % (0-9) Eosinophils (%) (Auto) 1 % (0-3) Basophils (%) (Auto) 0 % (0-3) Neutrophils # (Auto) 2.7 x10^3uL (1.8-7.7) Lymphocytes # (Auto) 0.9 x10^3/uL (1.0-4.8) Monocytes # (Auto) 0.3 x10^3/uL (0.0-1.1) Eosinophils # (Auto) 0.0 x10^3/uL (0.0-0.7) Basophils # (Auto) 0.0 x10^3/uL (0.0-0.2) Segmented Neutrophils % 74 % (35-66) Band Neutrophils % 1 % (0-9) Lymphocytes % 18 % (24-48) Monocytes % 7 % (0-10) Nucleated Red Blood Cells 2 Platelet Estimate Decreased (ADEQUATE) Large Platelets Occ Anisocytosis Mod Sodium Level 146 mmol/L (136-145) Potassium Level 3.8 mmol/L (3.5-5.1) Chloride Level 106 mmol/L (98-107) Carbon Dioxide Level 31 mmol/L (21-32) Anion Gap 9 (6-14) Blood Urea Nitrogen 59 mg/dL (7-20) Creatinine 2.9 mg/dL (0.6-1.0) Estimated GFR (Cockcroft-Gault) 18.7 BUN/Creatinine Ratio 20 (6-20) Glucose Level 81 mg/dL (70-99) Calcium Level 8.9 mg/dL (8.5-10.1) Total Bilirubin 0.3 mg/dL (0.2-1.0) Aspartate Amino Transf (AST/SGOT) 17 U/L (15-37) Alanine Aminotransferase (ALT/SGPT) 15 U/L (14-59) Alkaline Phosphatase 106 U/L (46-116) Total Protein 5.8 g/dL (6.4-8.2) Albumin 2.2 g/dL (3.4-5.0) Albumin/Globulin Ratio 0.6 (1.0-1.7) Laboratory Tests Test 05/10/18 17:55 05/10/18 17:59 05/10/18 19:50 05/10/18 22:35 Urine Collection Type U cath Urine Color Yellow Urine Clarity Clear Urine pH 5.0 Urine Specific Reading 1.020 Urine Protein Negative mg/dL (NEG-TRACE) Urine Glucose (UA) Negative mg/dL (NEG) Urine Ketones (Stick) Negative mg/dL (NEG) Urine Blood Negative (NEG) Urine Nitrite Negative (NEG) Urine Bilirubin Small (NEG) Urine Urobilinogen Dipstick 1.0 mg/dL (0.2 mg/dL) Urine Leukocyte Esterase Negative (NEG) Urine RBC Occ /HPF (0-2) Urine WBC 1-4 /HPF (0-4) Urine Squamous Epithelial Cells Few /LPF Urine Amorphous Sediment Present /HPF Urine Bacteria 0 /HPF (0-FEW) Urine Hyaline Casts Moderate /HPF Urine Mucus Slight /LPF Stool Occult Blood Positive (NEG) Troponin I Quantitative < 0.017 ng/mL (0.000-0.055) < 0.017 ng/mL (0.000-0.055) Test 05/11/18 04:48 White Blood Count 4.0 x10^3/uL (4.0-11.0) Red Blood Count 2.45 x10^6/uL (3.50-5.40) Hemoglobin 7.5 g/dL (12.0-15.5) Hematocrit 23.8 % (36.0-47.0) Mean Corpuscular Volume 97 fL (79-100) Mean Corpuscular Hemoglobin 31 pg (25-35) Mean Corpuscular Hemoglobin Concent 32 g/dL (31-37) Red Cell Distribution Width 22.4 % (11.5-14.5) Platelet Count 126 x10^3/uL (140-400) Neutrophils (%) (Auto) 69 % (31-73) Lymphocytes (%) (Auto) 22 % (24-48) Monocytes (%) (Auto) 8 % (0-9) Eosinophils (%) (Auto) 1 % (0-3) Basophils (%) (Auto) 0 % (0-3) Neutrophils # (Auto) 2.7 x10^3uL (1.8-7.7) Lymphocytes # (Auto) 0.9 x10^3/uL (1.0-4.8) Monocytes # (Auto) 0.3 x10^3/uL (0.0-1.1) Eosinophils # (Auto) 0.0 x10^3/uL (0.0-0.7) Basophils # (Auto) 0.0 x10^3/uL (0.0-0.2) Segmented Neutrophils % 74 % (35-66) Band Neutrophils % 1 % (0-9) Lymphocytes % 18 % (24-48) Monocytes % 7 % (0-10) Nucleated Red Blood Cells 2 Platelet Estimate Decreased (ADEQUATE) Large Platelets Occ Anisocytosis Mod Sodium Level 146 mmol/L (136-145) Potassium Level 3.8 mmol/L (3.5-5.1) Chloride Level 106 mmol/L (98-107) Carbon Dioxide Level 31 mmol/L (21-32) Anion Gap 9 (6-14) Blood Urea Nitrogen 59 mg/dL (7-20) Creatinine 2.9 mg/dL (0.6-1.0) Estimated GFR (Cockcroft-Gault) 18.7 BUN/Creatinine Ratio 20 (6-20) Glucose Level 81 mg/dL (70-99) Calcium Level 8.9 mg/dL (8.5-10.1) Total Bilirubin 0.3 mg/dL (0.2-1.0) Aspartate Amino Transf (AST/SGOT) 17 U/L (15-37) Alanine Aminotransferase (ALT/SGPT) 15 U/L (14-59) Alkaline Phosphatase 106 U/L (46-116) Total Protein 5.8 g/dL (6.4-8.2) Albumin 2.2 g/dL (3.4-5.0) Albumin/Globulin Ratio 0.6 (1.0-1.7) Medications Active Scripts Medications Dose Route/Sig Max Daily Dose Days Date Category Dose Instructions Ferrous Sulfate 325 Mg Tablet 325 Mg PO QODAY 04/27/18 Reported Duoneb 0.5-3(2.5) Mg/3 Ml (Albuterol/Ipratropium) 3 Ml Ampul.neb 3 Ml NEB 1X 30 04/07/18 Rx Prednisone (Prednisone) 10 Mg Tablet 10 Mg PO DAILY 28 04/07/18 Rx Please take 4 tabs po daily for 5 days then 3 tabs po daily for 7 days then 2 tabs po daily for 7 days and then continue with 1 tab po daily Metoprolol Succinate ( Xl ) (Metoprolol Succinate) 25 Mg Tab.er.24h 25 Mg PO DAILY 30 04/06/18 Rx Proair Hfa Inhaler (Albuterol Sulfate) 8.5 Gm Hfa.aer.ad 1 Puff INH PRN Q6HRS PRN 04/03/18 Reported Hydroxychloroquine Sulfate 200 Mg Tablet 1 Tab PO BID 04/03/18 Reported Vitamin D3 (Cholecalciferol (Vitamin D3)) 1,000 Unit Tablet 1,000 Unit PO DAILY 02/19/15 Reported Levothyroxine Sodium 50 Mcg Tablet 75 Mcg PO DAILY 01/24/13 Reported Aspirin Ec (Aspirin) 81 Mg Tablet.dr 81 Mg PO DAILY 01/24/13 Reported Impression . FULL NOTE DICTATED PROGRESSIVE DYSPNEA MULTIFACTORIAL SEE DICTATED DOUBT PE, DOUBT PNEUMONIA THANKS EVELIN GONZALEZ MD May 11, 2018 16:20
[2018-05-11] MEDS ORDERED: CEPH500C PO (16:42)
[2018-05-11] MEDS ORDERED: FUROSEMIDE 40 MG/4 ML VIAL. IVP ONE (18:00)
[2018-05-11] MEDS: ATORVASTATIN CALCIUM 20 MG TABLET PO SCH (20:31)
[2018-05-11] MEDS: CEPHALEXIN 250 MG CAPSULE. PO SCH (20:32)
[2018-05-11] MEDS ORDERED: DARBEPOETIN ALFA 60 MCG/0.3 ML DISP.SYRIN. SQ SCH (21:00)
[2018-05-12 03:10] VITALS: BP 103/52
--- NOTE | 2018-05-12 03:52 | CONS ---
DATE OF CONSULTATION: 05/11/2018 ATTENDING PHYSICIAN: Warren Bronson MD. REASON FOR CONSULTATION: The patient is seen in pulmonary consultation at the request of Dr. Bronson for abnormal x-ray, increasing shortness of breath. HISTORY OF PRESENT ILLNESS: The patient is an 82-year-old female who presented via private vehicle with sudden complaints of increasing shortness of breath over the last 2-3 days. This has been slow onset, not acute. No associated syncope or any syncopal episode. The patient denied any chest pain, no palpitation. Cough, mostly nonproductive. She normally does not wear oxygen. She smoked for a short period of time and quit in the . I reviewed her x-ray comparison to previous x-ray approximately a month ago. The bilateral pulmonary infiltrates have actually improved. The patient was admitted on 04/03/2018, a month ago. At that time, she was seen in pulmonary consultation by Dr. Torres, had left-sided chest discomfort and abnormal V/Q scan, showed some matched defects upper lobe. Chest x-ray showed upper lobe infiltrate. She had pneumonia. She underwent a noncontrast CT of the chest, which revealed pulmonary infiltrates. She was treated with antibiotics. She had a CT chest, which revealed bilateral airspace opacities in the upper lobe. She had a 5 mm nodule that needed to followup. The patient was discharged home on the . She had been on Zosyn. It was changed to Augmentin. She had elevated sed rate. She was placed on prednisone and was due to follow up with director [place]. There was some concern about the possibility of interstitial lung disease related to sarcoid. PAST MEDICAL HISTORY: Otherwise remarkable for: 1. 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 The patient was on steroids during the last hospitalization, was discharged on Augmentin. She now has bilateral infiltrates, which have improved, but persists. 2. Gastroesophageal reflux. 3. Hypertension. 4. Hypothyroidism. 5. Chronic liver disease. 6. Chronic renal insufficiency. 7. Chronic anemia. 8. Cirrhosis. 9. Mitral valve regurgitation. PAST SURGICAL HISTORY: Status post hysterectomy, right ankle surgery, vena cava filter and history of gastric shunt. ALLERGIES: None. FAMILY HISTORY: Coronary artery disease. SOCIAL HISTORY: Tobacco history: Quit in 1971, smoked for a short period of time. REVIEW OF SYSTEMS: As indicated above, otherwise, a 10-point system was reviewed and negative. PHYSICAL EXAMINATION: VITAL SIGNS: Stable. O2 saturation was greater than 92%. HEENT: Eyes: The sclerae were nonicteric. NECK: Jugular venous distention was not elevated. No lymphadenopathy. CHEST: Full expansion. LUNGS: Poor airway flow with no wheezes, crackles. CARDIOVASCULAR: Regular rate and rhythm with S1, S2, no S3. ABDOMEN: Soft, nontender, nondistended. EXTREMITIES: No clubbing, cyanosis or edema. NEUROLOGIC: The patient was awake, alert, following commands. A detailed neuro exam was not performed. LABORATORY DATA: White count was normal. Hemoglobin and hematocrit were noted. Electrolytes were noted. BUN and creatinine were elevated. Sodium was 146. INR was 1.0. Stool occult blood was positive. UA was noted. IMPRESSION: 1. Persistent bilateral pulmonary infiltrates, differential includes interstitial lung disease and autoimmune related interstitial lung disease, possible congestive heart failure, doubt new infection. 2. Progressive dyspnea, multifactorial secondary to chronic anemia, bilateral pulmonary infiltrates and weakness. 3. Severe secondary pulmonary hypertension. 4. Aortic stenosis. 5. Acute on chronic renal insufficiency. 6. Coronary artery disease. PLAN: 1. V/Q scan reviewed, low probability, doubt that this is related to pulmonary embolism. 2. I suspect dyspnea is multifactorial. She does have severe pulmonary hypertension. Recommend right heart catheterization with vasodilator administration. 3. Follow Nephrology consult input. 4. Transfuse. 5. GI consultation for positive occult blood. 6. No need for antibiotics at this time. I do appreciate the privilege in sharing in the patient's care. EVELIN GONZALEZ MD DR: SAUL/marisel JOB#: [id number] / [id number]
[2018-05-12 04:08] LABS: HEMATOCRIT 29.3 % (36.0-47.0); HEMOGLOBIN 9.3 g/dL (12.0-15.5); RED BLOOD COUNT 3.08 x10^6/uL (3.50-5.40); RED CELL DISTRIBUTION WIDTH 21.4 % (11.5-14.5); WHITE BLOOD COUNT 4.2 x10^3/uL (4.0-11.0)
[2018-05-12 04:33] LABS: CALCIUM 8.7 mg/dL (8.5-10.1); CREATININE 2.3 mg/dL (0.6-1.0); GFR 24.4; POTASSIUM 3.5 mmol/L (3.5-5.1)
[2018-05-12] MEDS: LEVOTHYROXINE 75 MCG TABLET PO SCH (06:08)
[2018-05-12 07:00] VITALS: BP 96/41
[2018-05-12] MEDS: METOPROLOL SUCC 24HR ER 25 MG TAB.ER.24H. PO SCH (08:46)
[2018-05-12] MEDS: ASPIRIN ENTERIC COATED 81 MG TABLET.DR. PO SCH (08:49)
[2018-05-12] MEDS: FERROUS SULFATE 325 MG TABLET. PO SCH (08:49)
[2018-05-12] MEDS: CEPHALEXIN 250 MG CAPSULE. PO SCH ×2 (08:50→20:46)
[2018-05-12] MEDS: CHOLECALCIFEROL (VITAMIN D3) 1,000 UNIT TABLET PO SCH (08:50)
--- NOTE | 2018-05-12 10:47 | PDOC ---
PROGRESS NOTES Chief Complaint Chief Complaint IMPRESSION Acute hypoxic resp failure Chronic upper lobe pulmonary infiltrates, right greater than left, have improved slightly since 04/03/2018. GENERALIZED WEAKNESS, SLOW PROGRESS ANEMIA, NORMOCYTIC WITH HEME POS STOOL IN ER RECENT ECHO C/W Doppler and Color Flow revealed ///moderately severe tricuspid regurgitation. Severe pulmonary hypertension. 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 Mildly elevated left ventricular pressure. Acute renal injury baseline cr approx 1.7 -2.0 ATN, NEW give iron daily at least bid; tid if can tolerate and monitor. History of Present Illness History of Present Illness Pt was seen and examined today, feeling SOB and was coughing occasionally Sitting in bed eating lunch Family was present at bedside Discussed with Dr Ng in the patient's room Explained to pt that her SOB is likely multifactorial- s/s point to etiology being potentially anemia, heart, lungs, kidneys Answered family's questions and explained plan Vitals Vitals Vital Signs Date Time Temp Pulse Resp B/P (MAP) Pulse Ox O2 Delivery O2 Flow Rate FiO2 05/12/18 08:46 70 96/41 05/12/18 08:00 Nasal Cannula 2.0 05/12/18 07:00 97.4 18 99 97.4 Physical Exam General: Alert, Oriented X3, Cooperative, mild distress (with minimal exertion) Heart: Regular rate, Normal S1, Normal S2, Other (3/6 systolic murmur ) Lungs: Clear Abdomen: Normal bowel sounds, Soft, No tenderness Extremities: No cyanosis, Normal pulses, Other (trace LE edema ) Skin: No significant lesion Labs LABS Laboratory Tests Test 05/12/18 03:50 White Blood Count 4.2 x10^3/uL (4.0-11.0) Red Blood Count 3.08 x10^6/uL (3.50-5.40) Hemoglobin 9.3 g/dL (12.0-15.5) Hematocrit 29.3 % (36.0-47.0) Mean Corpuscular Volume 95 fL (79-100) Mean Corpuscular Hemoglobin 30 pg (25-35) Mean Corpuscular Hemoglobin Concent 32 g/dL (31-37) Red Cell Distribution Width 21.4 % (11.5-14.5) Platelet Count 148 x10^3/uL (140-400) Sodium Level 144 mmol/L (136-145) Potassium Level 3.5 mmol/L (3.5-5.1) Chloride Level 105 mmol/L (98-107) Carbon Dioxide Level 27 mmol/L (21-32) Anion Gap 12 (6-14) Blood Urea Nitrogen 46 mg/dL (7-20) Creatinine 2.3 mg/dL (0.6-1.0) Estimated GFR (Cockcroft-Gault) 24.4 Glucose Level 80 mg/dL (70-99) Calcium Level 8.7 mg/dL (8.5-10.1) Iron Level 62 ug/dL (50-170) Total Iron Binding Capacity 198 ug/dL (250-450) Iron Saturation 31 % (15-34) Assessment and Plan Assessmemt and Plan Problems Medical Problems: (1) Acute electrocardiogram changes Status: Acute (2) Dyspnea Status: Acute Comment Review of Relevant I have reviewed the following items kade (where applicable) has been applied. Labs Laboratory Tests Test 05/10/18 15:25 05/10/18 17:55 05/10/18 17:59 05/10/18 19:50 White Blood Count 6.9 x10^3/uL (4.0-11.0) Red Blood Count 2.89 x10^6/uL (3.50-5.40) Hemoglobin 8.8 g/dL (12.0-15.5) Hematocrit 28.0 % (36.0-47.0) Mean Corpuscular Volume 97 fL (79-100) Mean Corpuscular Hemoglobin 30 pg (25-35) Mean Corpuscular Hemoglobin Concent 31 g/dL (31-37) Red Cell Distribution Width 23.1 % (11.5-14.5) Platelet Count 140 x10^3/uL (140-400) Neutrophils (%) (Auto) 76 % (31-73) Lymphocytes (%) (Auto) 17 % (24-48) Monocytes (%) (Auto) 6 % (0-9) Eosinophils (%) (Auto) 0 % (0-3) Basophils (%) (Auto) 1 % (0-3) Neutrophils # (Auto) 5.2 x10^3uL (1.8-7.7) Lymphocytes # (Auto) 1.2 x10^3/uL (1.0-4.8) Monocytes # (Auto) 0.4 x10^3/uL (0.0-1.1) Eosinophils # (Auto) 0.0 x10^3/uL (0.0-0.7) Basophils # (Auto) 0.1 x10^3/uL (0.0-0.2) Platelet Estimate Adequate (ADEQUATE) Polychromasia Present Anisocytosis Mod Macrocytosis Slight Spherocytes Occ Ovalocytes Few Prothrombin Time 12.9 SEC (11.7-14.0) Prothromb Time International Ratio 1.0 (0.8-1.1) Activated Partial Thromboplast Time 34 SEC (24-38) Sodium Level 146 mmol/L (136-145) Potassium Level 4.0 mmol/L (3.5-5.1) Chloride Level 104 mmol/L (98-107) Carbon Dioxide Level 26 mmol/L (21-32) Anion Gap 16 (6-14) Blood Urea Nitrogen 58 mg/dL (7-20) Creatinine 2.9 mg/dL (0.6-1.0) Estimated GFR (Cockcroft-Gault) 18.7 BUN/Creatinine Ratio 20 (6-20) Glucose Level 108 mg/dL (70-99) Calcium Level 9.6 mg/dL (8.5-10.1) Total Bilirubin 0.4 mg/dL (0.2-1.0) Aspartate Amino Transf (AST/SGOT) 23 U/L (15-37) Alanine Aminotransferase (ALT/SGPT) 17 U/L (14-59) Alkaline Phosphatase 127 U/L (46-116) Troponin I Quantitative < 0.017 ng/mL (0.000-0.055) < 0.017 ng/mL (0.000-0.055) ZH-Gjd-V-Type Natriuretic Peptide 6185 pg/mL (0-449) Total Protein 7.1 g/dL (6.4-8.2) Albumin 2.6 g/dL (3.4-5.0) Albumin/Globulin Ratio 0.6 (1.0-1.7) Urine Collection Type U cath Urine Color Yellow Urine Clarity Clear Urine pH 5.0 Urine Specific [place] 1.020 Urine Protein Negative mg/dL (NEG-TRACE) Urine Glucose (UA) Negative mg/dL (NEG) Urine Ketones (Stick) Negative mg/dL (NEG) Urine Blood Negative (NEG) Urine Nitrite Negative (NEG) Urine Bilirubin Small (NEG) Urine Urobilinogen Dipstick 1.0 mg/dL (0.2 mg/dL) Urine Leukocyte Esterase Negative (NEG) Urine RBC Occ /HPF (0-2) Urine WBC 1-4 /HPF (0-4) Urine Squamous Epithelial Cells Few /LPF Urine Amorphous Sediment Present /HPF Urine Bacteria 0 /HPF (0-FEW) Urine Hyaline Casts Moderate /HPF Urine Mucus Slight /LPF Stool Occult Blood Positive (NEG) Test 05/10/18 22:35 05/11/18 04:48 05/12/18 03:50 Troponin I Quantitative < 0.017 ng/mL (0.000-0.055) White Blood Count 4.0 x10^3/uL (4.0-11.0) 4.2 x10^3/uL (4.0-11.0) Red Blood Count 2.45 x10^6/uL (3.50-5.40) 3.08 x10^6/uL (3.50-5.40) Hemoglobin 7.5 g/dL (12.0-15.5) 9.3 g/dL (12.0-15.5) Hematocrit 23.8 % (36.0-47.0) 29.3 % (36.0-47.0) Mean Corpuscular Volume 97 fL (79-100) 95 fL (79-100) Mean Corpuscular Hemoglobin 31 pg (25-35) 30 pg (25-35) Mean Corpuscular Hemoglobin Concent 32 g/dL (31-37) 32 g/dL (31-37) Red Cell Distribution Width 22.4 % (11.5-14.5) 21.4 % (11.5-14.5) Platelet Count 126 x10^3/uL (140-400) 148 x10^3/uL (140-400) Neutrophils (%) (Auto) 69 % (31-73) Lymphocytes (%) (Auto) 22 % (24-48) Monocytes (%) (Auto) 8 % (0-9) Eosinophils (%) (Auto) 1 % (0-3) Basophils (%) (Auto) 0 % (0-3) Neutrophils # (Auto) 2.7 x10^3uL (1.8-7.7) Lymphocytes # (Auto) 0.9 x10^3/uL (1.0-4.8) Monocytes # (Auto) 0.3 x10^3/uL (0.0-1.1) Eosinophils # (Auto) 0.0 x10^3/uL (0.0-0.7) Basophils # (Auto) 0.0 x10^3/uL (0.0-0.2) Segmented Neutrophils % 74 % (35-66) Band Neutrophils % 1 % (0-9) Lymphocytes % 18 % (24-48) Monocytes % 7 % (0-10) Nucleated Red Blood Cells 2 Platelet Estimate Decreased (ADEQUATE) Large Platelets Occ Anisocytosis Mod Sodium Level 146 mmol/L (136-145) 144 mmol/L (136-145) Potassium Level 3.8 mmol/L (3.5-5.1) 3.5 mmol/L (3.5-5.1) Chloride Level 106 mmol/L (98-107) 105 mmol/L (98-107) Carbon Dioxide Level 31 mmol/L (21-32) 27 mmol/L (21-32) Anion Gap 9 (6-14) 12 (6-14) Blood Urea Nitrogen 59 mg/dL (7-20) 46 mg/dL (7-20) Creatinine 2.9 mg/dL (0.6-1.0) 2.3 mg/dL (0.6-1.0) Estimated GFR (Cockcroft-Gault) 18.7 24.4 BUN/Creatinine Ratio 20 (6-20) Glucose Level 81 mg/dL (70-99) 80 mg/dL (70-99) Calcium Level 8.9 mg/dL (8.5-10.1) 8.7 mg/dL (8.5-10.1) Total Bilirubin 0.3 mg/dL (0.2-1.0) Aspartate Amino Transf (AST/SGOT) 17 U/L (15-37) Alanine Aminotransferase (ALT/SGPT) 15 U/L (14-59) Alkaline Phosphatase 106 U/L (46-116) Total Protein 5.8 g/dL (6.4-8.2) Albumin 2.2 g/dL (3.4-5.0) Albumin/Globulin Ratio 0.6 (1.0-1.7) Iron Level 62 ug/dL (50-170) Total Iron Binding Capacity 198 ug/dL (250-450) Iron Saturation 31 % (15-34) Laboratory Tests Test 05/12/18 03:50 White Blood Count 4.2 x10^3/uL (4.0-11.0) Red Blood Count 3.08 x10^6/uL (3.50-5.40) Hemoglobin 9.3 g/dL (12.0-15.5) Hematocrit 29.3 % (36.0-47.0) Mean Corpuscular Volume 95 fL (79-100) Mean Corpuscular Hemoglobin 30 pg (25-35) Mean Corpuscular Hemoglobin Concent 32 g/dL (31-37) Red Cell Distribution Width 21.4 % (11.5-14.5) Platelet Count 148 x10^3/uL (140-400) Sodium Level 144 mmol/L (136-145) Potassium Level 3.5 mmol/L (3.5-5.1) Chloride Level 105 mmol/L (98-107) Carbon Dioxide Level 27 mmol/L (21-32) Anion Gap 12 (6-14) Blood Urea Nitrogen 46 mg/dL (7-20) Creatinine 2.3 mg/dL (0.6-1.0) Estimated GFR (Cockcroft-Gault) 24.4 Glucose Level 80 mg/dL (70-99) Calcium Level 8.7 mg/dL (8.5-10.1) Iron Level 62 ug/dL (50-170) Total Iron Binding Capacity 198 ug/dL (250-450) Iron Saturation 31 % (15-34) Medications Current Medications Aspirin (Children'S Aspirin) 324 mg 1X ONCE PO ; Start 05/10/18 at 15:15; Stop 05/10/18 at 15:20; Status DC Acetaminophen (Tylenol) 650 mg PRN Q4HRS PRN PO PAIN; Start 05/10/18 at 17:00; Stop 05/11/18 at 16:59; Status DC Aspirin (Children'S Aspirin) 324 mg 1X ONCE PO Last administered on 05/10/18at 21:31; Start 05/10/18 at 18:00; Stop 05/10/18 at 18:01; Status DC Albuterol Sulfate (Ventolin Neb Soln) 2.5 mg PRN Q6HRS PRN INH SHORTNESS OF BREATH; Start 05/10/18 at 20:15; Stop 05/10/18 at 20:49; Status DC Aspirin (Ecotrin) 81 mg DAILY PO Last administered on 05/12/18 08:49; Start at 09:00 Vitamin D (Vitamin D3) 1,000 unit DAILY PO Last administered on 05/12/18 08:50 ; Start 05/11/18 at 09:00 Ferrous Sulfate (Feosol) 325 mg QODAY PO Last administered on 05/12/18 08:49; Start 05/12/18 at 09:00 Albuterol/ Ipratropium (Duoneb) 3 ml Q4HRS NEB ; Start 05/11/18 at 00:00; Stop 05/11/18 at 00:00; Status DC Metoprolol Succinate (Toprol Xl) 25 mg DAILY PO Last administered on 05/11/18 08:27; Start 05/11/18 at 09:00 Levothyroxine Sodium (Synthroid) 75 mcg DAILY06 PO Last administered on 06:08; Start 05/11/18 at 06:00 Heparin Sodium (Porcine) (Heparin Sodium) 5,000 unit Q8HRS SQ Last administered on 05/10/18 21:34; Start 05/10/18 at 22:00; Stop 05/11/18 at 16:40 ; Status DC Sodium Chloride 1,000 ml @ 75 mls/hr [id number] IV Last administered on 08:29; Start 05/10/18 at 20:30 Albuterol Sulfate (Ventolin Neb Soln) 2.5 mg PRN Q4HRS PRN NEB SHORTNESS OF BREATH; Start 05/10/18 at 21:00 Atorvastatin Calcium (Lipitor) 20 mg QHS PO Last administered on 05/11/18 20: 31; Start 05/11/18 at 21:00 Darbepoetin [place] (Aranesp) 60 mcg WEEKLYHS SQ Last administered on 05/11/18 22 :02; Start 05/11/18 at 21:00 Furosemide (Lasix) 40 mg 1X ONCE IVP Last administered on 3/27/19at 20:31; Start 05/11/18 at 18:00; Stop 05/11/18 at 18:01; Status DC Cephalexin HCl (Keflex) 500 mg BID PO Last administered on 05/12/18at 08:50; Start 05/11/18 at 21:00 Active Scripts Active Duoneb 0.5-3(2.5) Mg/3 Ml (Albuterol/Ipratropium) 3 Ml Ampul.neb 3 Ml NEB 1X 30 Days Prednisone (Prednisone) 10 Mg Tablet 10 Mg PO DAILY 28 Days Please take 4 tabs po daily for 5 days then 3 tabs po daily for 7 days then 2 tabs po daily for 7 days and then continue with 1 tab po daily Metoprolol Succinate ( Xl ) (Metoprolol Succinate) 25 Mg Tab.er.24h 25 Mg PO DAILY 30 Days Reported Cephalexin 500 Mg Capsule 1 Cap PO TID Ferrous Sulfate 325 Mg Tablet 325 Mg PO QODAY Proair Hfa Inhaler (Albuterol Sulfate) 8.5 Gm Hfa.aer.ad 1 Puff INH PRN Q6HRS PRN Hydroxychloroquine Sulfate 200 Mg Tablet 1 Tab PO BID Vitamin D3 (Cholecalciferol (Vitamin D3)) 1,000 Unit Tablet 1,000 Unit PO DAILY Levothyroxine Sodium 50 Mcg Tablet 75 Mcg PO DAILY Aspirin Ec (Aspirin) 81 Mg Tablet.dr 81 Mg PO DAILY Vitals/I & O Vital Sign - Last 24 Hours 05/11/18 05/11/18 05/11/18 05/11/18 11:00 15:12 16:12 17:12 Temp 98.3 98.4 97.3 97.3 98.3 98.4 97.3 97.3 Pulse 70 69 70 65 Resp 19 16 18 18 B/P (MAP) 105/53 (70) 98/41 (60) 121/60 113/48 Pulse Ox 99 94 O2 Delivery Nasal Cannula Nasal Cannula O2 Flow Rate 2.0 2.0 05/11/18 05/11/18 05/11/18 05/11/18 18:12 19:15 19:20 20:00 Temp 97.5 97.4 97.4 97.5 97.4 97.4 Pulse 70 68 68 Resp 16 19 B/P (MAP) 115/45 106/52 106/52 (70) Pulse Ox 99 O2 Delivery Nasal Cannula Nasal Cannula O2 Flow Rate 2.0 2.0 05/11/18 05/12/18 05/12/18 05/12/18 23:35 03:10 07:00 08:00 Temp 97.3 97.6 97.4 97.3 97.6 97.4 Pulse 68 70 70 Resp 17 17 18 B/P (MAP) 106/47 (66) 103/52 (69) 96/41 (59) Pulse Ox 93 98 99 O2 Delivery Room Air Nasal Cannula Nasal Cannula Nasal Cannula O2 Flow Rate 2.0 2.0 2.0 05/12/18 08:46 Pulse 70 B/P (MAP) 96/41 Intake and Output 05/11/18 05/11/18 05/12/18 15:00 23:00 07:00 Intake Total 340 ml 30 ml 600 ml Output Total 1 ml Balance 340 ml 29 ml 600 ml ANGLE STEEL MD May 12, 2018 10:47
[2018-05-12 11:00] VITALS: BP 95/44
--- NOTE | 2018-05-12 11:05 | PDOC ---
PULMONARY PROGRESS NOTES Vitals Vital Signs Date Time Temp Pulse Resp B/P (MAP) Pulse Ox O2 Delivery O2 Flow Rate FiO2 05/12/18 08:46 70 96/41 05/12/18 08:00 Nasal Cannula 2.0 05/12/18 07:00 97.4 18 99 97.4 General: Alert, No acute distress Lungs: Clear Cardiovascular: S1, S2 Abdomen: Soft, Non-tender Extremities: Other Labs Laboratory Tests Test 05/10/18 15:25 05/10/18 17:55 05/10/18 17:59 05/10/18 19:50 White Blood Count 6.9 x10^3/uL (4.0-11.0) Red Blood Count 2.89 x10^6/uL (3.50-5.40) Hemoglobin 8.8 g/dL (12.0-15.5) Hematocrit 28.0 % (36.0-47.0) Mean Corpuscular Volume 97 fL (79-100) Mean Corpuscular Hemoglobin 30 pg (25-35) Mean Corpuscular Hemoglobin Concent 31 g/dL (31-37) Red Cell Distribution Width 23.1 % (11.5-14.5) Platelet Count 140 x10^3/uL (140-400) Neutrophils (%) (Auto) 76 % (31-73) Lymphocytes (%) (Auto) 17 % (24-48) Monocytes (%) (Auto) 6 % (0-9) Eosinophils (%) (Auto) 0 % (0-3) Basophils (%) (Auto) 1 % (0-3) Neutrophils # (Auto) 5.2 x10^3uL (1.8-7.7) Lymphocytes # (Auto) 1.2 x10^3/uL (1.0-4.8) Monocytes # (Auto) 0.4 x10^3/uL (0.0-1.1) Eosinophils # (Auto) 0.0 x10^3/uL (0.0-0.7) Basophils # (Auto) 0.1 x10^3/uL (0.0-0.2) Platelet Estimate Adequate (ADEQUATE) Polychromasia Present Anisocytosis Mod Macrocytosis Slight Spherocytes Occ Ovalocytes Few Prothrombin Time 12.9 SEC (11.7-14.0) Prothromb Time International Ratio 1.0 (0.8-1.1) Activated Partial Thromboplast Time 34 SEC (24-38) Sodium Level 146 mmol/L (136-145) Potassium Level 4.0 mmol/L (3.5-5.1) Chloride Level 104 mmol/L (98-107) Carbon Dioxide Level 26 mmol/L (21-32) Anion Gap 16 (6-14) Blood Urea Nitrogen 58 mg/dL (7-20) Creatinine 2.9 mg/dL (0.6-1.0) Estimated GFR (Cockcroft-Gault) 18.7 BUN/Creatinine Ratio 20 (6-20) Glucose Level 108 mg/dL (70-99) Calcium Level 9.6 mg/dL (8.5-10.1) Total Bilirubin 0.4 mg/dL (0.2-1.0) Aspartate Amino Transf (AST/SGOT) 23 U/L (15-37) Alanine Aminotransferase (ALT/SGPT) 17 U/L (14-59) Alkaline Phosphatase 127 U/L (46-116) Troponin I Quantitative < 0.017 ng/mL (0.000-0.055) < 0.017 ng/mL (0.000-0.055) OS-Qbe-O-Type Natriuretic Peptide 6185 pg/mL (0-449) Total Protein 7.1 g/dL (6.4-8.2) Albumin 2.6 g/dL (3.4-5.0) Albumin/Globulin Ratio 0.6 (1.0-1.7) Urine Collection Type U cath Urine Color Yellow Urine Clarity Clear Urine pH 5.0 Urine Specific [place] 1.020 Urine Protein Negative mg/dL (NEG-TRACE) Urine Glucose (UA) Negative mg/dL (NEG) Urine Ketones (Stick) Negative mg/dL (NEG) Urine Blood Negative (NEG) Urine Nitrite Negative (NEG) Urine Bilirubin Small (NEG) Urine Urobilinogen Dipstick 1.0 mg/dL (0.2 mg/dL) Urine Leukocyte Esterase Negative (NEG) Urine RBC Occ /HPF (0-2) Urine WBC 1-4 /HPF (0-4) Urine Squamous Epithelial Cells Few /LPF Urine Amorphous Sediment Present /HPF Urine Bacteria 0 /HPF (0-FEW) Urine Hyaline Casts Moderate /HPF Urine Mucus Slight /LPF Stool Occult Blood Positive (NEG) Test 05/10/18 22:35 05/11/18 04:48 05/12/18 03:50 Troponin I Quantitative < 0.017 ng/mL (0.000-0.055) White Blood Count 4.0 x10^3/uL (4.0-11.0) 4.2 x10^3/uL (4.0-11.0) Red Blood Count 2.45 x10^6/uL (3.50-5.40) 3.08 x10^6/uL (3.50-5.40) Hemoglobin 7.5 g/dL (12.0-15.5) 9.3 g/dL (12.0-15.5) Hematocrit 23.8 % (36.0-47.0) 29.3 % (36.0-47.0) Mean Corpuscular Volume 97 fL (79-100) 95 fL (79-100) Mean Corpuscular Hemoglobin 31 pg (25-35) 30 pg (25-35) Mean Corpuscular Hemoglobin Concent 32 g/dL (31-37) 32 g/dL (31-37) Red Cell Distribution Width 22.4 % (11.5-14.5) 21.4 % (11.5-14.5) Platelet Count 126 x10^3/uL (140-400) 148 x10^3/uL (140-400) Neutrophils (%) (Auto) 69 % (31-73) Lymphocytes (%) (Auto) 22 % (24-48) Monocytes (%) (Auto) 8 % (0-9) Eosinophils (%) (Auto) 1 % (0-3) Basophils (%) (Auto) 0 % (0-3) Neutrophils # (Auto) 2.7 x10^3uL (1.8-7.7) Lymphocytes # (Auto) 0.9 x10^3/uL (1.0-4.8) Monocytes # (Auto) 0.3 x10^3/uL (0.0-1.1) Eosinophils # (Auto) 0.0 x10^3/uL (0.0-0.7) Basophils # (Auto) 0.0 x10^3/uL (0.0-0.2) Segmented Neutrophils % 74 % (35-66) Band Neutrophils % 1 % (0-9) Lymphocytes % 18 % (24-48) Monocytes % 7 % (0-10) Nucleated Red Blood Cells 2 Platelet Estimate Decreased (ADEQUATE) Large Platelets Occ Anisocytosis Mod Sodium Level 146 mmol/L (136-145) 144 mmol/L (136-145) Potassium Level 3.8 mmol/L (3.5-5.1) 3.5 mmol/L (3.5-5.1) Chloride Level 106 mmol/L (98-107) 105 mmol/L (98-107) Carbon Dioxide Level 31 mmol/L (21-32) 27 mmol/L (21-32) Anion Gap 9 (6-14) 12 (6-14) Blood Urea Nitrogen 59 mg/dL (7-20) 46 mg/dL (7-20) Creatinine 2.9 mg/dL (0.6-1.0) 2.3 mg/dL (0.6-1.0) Estimated GFR (Cockcroft-Gault) 18.7 24.4 BUN/Creatinine Ratio 20 (6-20) Glucose Level 81 mg/dL (70-99) 80 mg/dL (70-99) Calcium Level 8.9 mg/dL (8.5-10.1) 8.7 mg/dL (8.5-10.1) Total Bilirubin 0.3 mg/dL (0.2-1.0) Aspartate Amino Transf (AST/SGOT) 17 U/L (15-37) Alanine Aminotransferase (ALT/SGPT) 15 U/L (14-59) Alkaline Phosphatase 106 U/L (46-116) Total Protein 5.8 g/dL (6.4-8.2) Albumin 2.2 g/dL (3.4-5.0) Albumin/Globulin Ratio 0.6 (1.0-1.7) Iron Level 62 ug/dL (50-170) Total Iron Binding Capacity 198 ug/dL (250-450) Iron Saturation 31 % (15-34) Laboratory Tests Test 05/12/18 03:50 White Blood Count 4.2 x10^3/uL (4.0-11.0) Red Blood Count 3.08 x10^6/uL (3.50-5.40) Hemoglobin 9.3 g/dL (12.0-15.5) Hematocrit 29.3 % (36.0-47.0) Mean Corpuscular Volume 95 fL (79-100) Mean Corpuscular Hemoglobin 30 pg (25-35) Mean Corpuscular Hemoglobin Concent 32 g/dL (31-37) Red Cell Distribution Width 21.4 % (11.5-14.5) Platelet Count 148 x10^3/uL (140-400) Sodium Level 144 mmol/L (136-145) Potassium Level 3.5 mmol/L (3.5-5.1) Chloride Level 105 mmol/L (98-107) Carbon Dioxide Level 27 mmol/L (21-32) Anion Gap 12 (6-14) Blood Urea Nitrogen 46 mg/dL (7-20) Creatinine 2.3 mg/dL (0.6-1.0) Estimated GFR (Cockcroft-Gault) 24.4 Glucose Level 80 mg/dL (70-99) Calcium Level 8.7 mg/dL (8.5-10.1) Iron Level 62 ug/dL (50-170) Total Iron Binding Capacity 198 ug/dL (250-450) Iron Saturation 31 % (15-34) Medications Active Scripts Medications Dose Route/Sig Max Daily Dose Days Date Category Dose Instructions Ferrous Sulfate 325 Mg Tablet 325 Mg PO QODAY 04/27/18 Reported Duoneb 0.5-3(2.5) Mg/3 Ml (Albuterol/Ipratropium) 3 Ml Ampul.neb 3 Ml NEB 1X 30 04/07/18 Rx Prednisone (Prednisone) 10 Mg Tablet 10 Mg PO DAILY 28 04/07/18 Rx Please take 4 tabs po daily for 5 days then 3 tabs po daily for 7 days then 2 tabs po daily for 7 days and then continue with 1 tab po daily Metoprolol Succinate ( Xl ) (Metoprolol Succinate) 25 Mg Tab.er.24h 25 Mg PO DAILY 30 04/06/18 Rx Proair Hfa Inhaler (Albuterol Sulfate) 8.5 Gm Hfa.aer.ad 1 Puff INH PRN Q6HRS PRN 04/03/18 Reported Hydroxychloroquine Sulfate 200 Mg Tablet 1 Tab PO BID 04/03/18 Reported Vitamin D3 (Cholecalciferol (Vitamin D3)) 1,000 Unit Tablet 1,000 Unit PO DAILY 02/19/15 Reported Levothyroxine Sodium 50 Mcg Tablet 75 Mcg PO DAILY 01/24/13 Reported Aspirin Ec (Aspirin) 81 Mg Tablet. 81 Mg PO DAILY 01/24/13 Reported Impression . FULL NOTE DICTATED PROGRESSIVE DYSPNEA MULTIFACTORIAL SEE DICTATED DOUBT PE, DOUBT PNEUMONIA THANKS EVELIN GONZALEZ MD May 12, 2018 11:05
--- NOTE | 2018-05-12 11:50 | PDOC ---
Renal-Progress Notes Subjective Notes Notes FEELING BETTER History of Present Illness Hx of present illness STABLE Vitals Vitals Vital Signs Date Time Temp Pulse Resp B/P (MAP) Pulse Ox O2 Delivery O2 Flow Rate FiO2 05/12/18 11:00 97.3 73 18 95/44 (61) 98 Room Air 97.3 05/12/18 08:00 2.0 Weight Weight [ ] I.O. Intake and Output Intake and Output 05/12/18 07:00 Intake Total 970 ml Output Total 1 ml Balance 969 ml Intake Oral 940 ml Blood Product IV Normal Saline Flush 30 ml Output Urine Total 1 ml # Voids 2 # Bowel Movements 1 Labs Labs Laboratory Tests Test 05/12/18 03:50 White Blood Count 4.2 x10^3/uL (4.0-11.0) Red Blood Count 3.08 x10^6/uL (3.50-5.40) Hemoglobin 9.3 g/dL (12.0-15.5) Hematocrit 29.3 % (36.0-47.0) Mean Corpuscular Volume 95 fL (79-100) Mean Corpuscular Hemoglobin 30 pg (25-35) Mean Corpuscular Hemoglobin Concent 32 g/dL (31-37) Red Cell Distribution Width 21.4 % (11.5-14.5) Platelet Count 148 x10^3/uL (140-400) Sodium Level 144 mmol/L (136-145) Potassium Level 3.5 mmol/L (3.5-5.1) Chloride Level 105 mmol/L (98-107) Carbon Dioxide Level 27 mmol/L (21-32) Anion Gap 12 (6-14) Blood Urea Nitrogen 46 mg/dL (7-20) Creatinine 2.3 mg/dL (0.6-1.0) Estimated GFR (Cockcroft-Gault) 24.4 Glucose Level 80 mg/dL (70-99) Calcium Level 8.7 mg/dL (8.5-10.1) Iron Level 62 ug/dL (50-170) Total Iron Binding Capacity 198 ug/dL (250-450) Iron Saturation 31 % (15-34) Review of Systems Constitutional: yes: weakness, alert, oriented Ears/Nose/Throat: Yes: no symptom reported Eyes: Yes: no symptom reported Pulmonary: Yes dyspnea Cardiovascular: Yes no symptom reported Gastrointestional: Yes: no symptom reported Genitourinary: Yes: no symptom reported Musculoskeletal: Yes: no symptom reported Psychiatric/Neurological: Yes: no symptom reported Endocrine: Yes: no symptom reported Physical Exam General Appearance: no apparent distress Skin: warm Respiratory: decreased breath sounds Heart: S1S2, RRR Abdomen: bowel sounds present Genitourinary: bladder flat Extremities: pulses present Neurology: alert, oriented Musculoskeletal: No pain, Other Assessment Assessment IMP DYSPNEA - PROB MULTIFACTORIAL HEMAL BETTER WITH CR OF 2.3 CKD STAGE 4 WITH CR OF 2.0 ANEMIA OF CKD-BETTER WITH PRBC DECONDITIONING FATIGUE DUE TO ANEMIA PROB HX OF SINGLE VESSEL CAD HX OF VALVULAR HEART DZ HX OF PULMONARY HTN PLAN ON OP PROCRIT MAY NEED CONTINUOUS O2 PULM EVAL CARDIAC EVAL LOW FLOW IVF'S D/W ATTENDING UPDATED FAMILY WILL FOLLOW MARBIN MORGAN MD May 12, 2018 11:50
--- NOTE | 2018-05-12 12:48 | PDOC ---
CYNTHIA VUONG ORIENTATION & MOBILITY SPECIALIST 05/12/18 1248: CARDIO Progress Notes Date and Time Date of Service 05/12/18 Time of Evaluation 1110 Subjective Subjective: Other (rells better today but has ongoing GARCIA) Vitals Vitals Vital Signs Date Time Temp Pulse Resp B/P (MAP) Pulse Ox O2 Delivery O2 Flow Rate FiO2 05/12/18 11:00 97.3 73 18 95/44 (61) 98 Room Air 97.3 05/12/18 08:00 2.0 Weight Weight [ ] Input and Output Intake and Output Intake and Output 05/12/18 07:00 Intake Total 970 ml Output Total 1 ml Balance 969 ml Intake Oral 940 ml Blood Product IV Normal Saline Flush 30 ml Output Urine Total 1 ml # Voids 2 # Bowel Movements 1 Laboratory Labs Laboratory Tests Test 05/12/18 03:50 White Blood Count 4.2 x10^3/uL (4.0-11.0) Red Blood Count 3.08 x10^6/uL (3.50-5.40) Hemoglobin 9.3 g/dL (12.0-15.5) Hematocrit 29.3 % (36.0-47.0) Mean Corpuscular Volume 95 fL (79-100) Mean Corpuscular Hemoglobin 30 pg (25-35) Mean Corpuscular Hemoglobin Concent 32 g/dL (31-37) Red Cell Distribution Width 21.4 % (11.5-14.5) Platelet Count 148 x10^3/uL (140-400) Sodium Level 144 mmol/L (136-145) Potassium Level 3.5 mmol/L (3.5-5.1) Chloride Level 105 mmol/L (98-107) Carbon Dioxide Level 27 mmol/L (21-32) Anion Gap 12 (6-14) Blood Urea Nitrogen 46 mg/dL (7-20) Creatinine 2.3 mg/dL (0.6-1.0) Estimated GFR (Cockcroft-Gault) 24.4 Glucose Level 80 mg/dL (70-99) Calcium Level 8.7 mg/dL (8.5-10.1) Iron Level 62 ug/dL (50-170) Total Iron Binding Capacity 198 ug/dL (250-450) Iron Saturation 31 % (15-34) Review of Systems Constitutional: yes: weakness, alert, oriented Ears/Nose/Throat: Yes: no symptom reported Eyes: Yes: no symptom reported Pulmonary: Yes dyspnea Cardiovascular: Yes no symptom reported Gastrointestional: Yes: no symptom reported Genitourinary: Yes: no symptom reported Musculoskeletal: Yes: no symptom reported Psychiatric/Neurological: Yes: no symptom reported Endocrine: Yes: no symptom reported Physical Exam HEENT: Neck Supple W Full Motion Chest: Symmetric LUNGS: Clear to Auscultation, Other (diminished base) Heart: S1S2, RRR, murmurs (3/6 systolic murmur) Abdomen: Soft N/T Extremities: Other (trace bilateral LE edema ) Neurology: alert, oriented Assessment Assessment 1. Fatigue, weakness 2. Dyspnea; multifactorial. 3. 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 3. Severe pulm HTN; PAP 68 4. Mild acute on chronic diastolic HF 5. CAD; mid occlusion of RCA noted on cath last month as noted above. 6. Valvular disease; mild /AR, moderate MR, and moderate-severe TR 7. HEMAL on CKD 8. Anemia of chronic disease; hgb drop to 7.5; s/p transfusion. Fecal occult positive- GI consulted Recommendations Follow pulmonary recs Secondary prevention; ASA, BB, statin Supportive care RHC as warranted ELMIRA HURTADO MD 05/12/18 2222: CARDIO Progress Notes Plan Plan Pt. seen and examined. Agree with above Conservation Enforcement Officer note. Reviewed pulm recs. Will plan for RHC in a.m. Her dyspnea is definitely multifactorial. Trops still negative. EKG stable. Thanks CYNTHIA VUONG APRN May 12, 2018 12:48 ELMIRA HURTADO MD May 12, 2018 22:22
[2018-05-12] MEDS: predniSONE 10 MG TABLET PO SCH (13:23)
[2018-05-12 15:00] VITALS: BP 98/48
--- NOTE | 2018-05-12 15:01 | PDOC ---
G I PROGRESS NOTE Reason for Follow-up Anemia/heme positive stool. Subjective Seen a month ago for similar issues. Now as then no GI complaints or overt bleeding. Heme positive, though also in 2014 here.. 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 Anemic dating back to probably before 2013. Can document normal colonoscopies in 2007 and 2012. Normal EGD's save post-op anatomy in 2007, 2012 and 2013. SBCE entertained once, but not accomplished after 2013 scopes. Takes po iron, but only one qod. 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 On ANDREW for a while, not now. Physical Exam Lungs clear. RRR Abdomen soft, not tender nor distended. Review of Relevant I have reviewed the following items kade (where applicable) has been applied. Labs Laboratory Tests Test 05/10/18 15:25 05/10/18 17:55 05/10/18 17:59 05/10/18 19:50 White Blood Count 6.9 x10^3/uL (4.0-11.0) Red Blood Count 2.89 x10^6/uL (3.50-5.40) Hemoglobin 8.8 g/dL (12.0-15.5) Hematocrit 28.0 % (36.0-47.0) Mean Corpuscular Volume 97 fL (79-100) Mean Corpuscular Hemoglobin 30 pg (25-35) Mean Corpuscular Hemoglobin Concent 31 g/dL (31-37) Red Cell Distribution Width 23.1 % (11.5-14.5) Platelet Count 140 x10^3/uL (140-400) Neutrophils (%) (Auto) 76 % (31-73) Lymphocytes (%) (Auto) 17 % (24-48) Monocytes (%) (Auto) 6 % (0-9) Eosinophils (%) (Auto) 0 % (0-3) Basophils (%) (Auto) 1 % (0-3) Neutrophils # (Auto) 5.2 x10^3uL (1.8-7.7) Lymphocytes # (Auto) 1.2 x10^3/uL (1.0-4.8) Monocytes # (Auto) 0.4 x10^3/uL (0.0-1.1) Eosinophils # (Auto) 0.0 x10^3/uL (0.0-0.7) Basophils # (Auto) 0.1 x10^3/uL (0.0-0.2) Platelet Estimate Adequate (ADEQUATE) Polychromasia Present Anisocytosis Mod Macrocytosis Slight Spherocytes Occ Ovalocytes Few Prothrombin Time 12.9 SEC (11.7-14.0) Prothromb Time International Ratio 1.0 (0.8-1.1) Activated Partial Thromboplast Time 34 SEC (24-38) Sodium Level 146 mmol/L (136-145) Potassium Level 4.0 mmol/L (3.5-5.1) Chloride Level 104 mmol/L (98-107) Carbon Dioxide Level 26 mmol/L (21-32) Anion Gap 16 (6-14) Blood Urea Nitrogen 58 mg/dL (7-20) Creatinine 2.9 mg/dL (0.6-1.0) Estimated GFR (Cockcroft-Gault) 18.7 BUN/Creatinine Ratio 20 (6-20) Glucose Level 108 mg/dL (70-99) Calcium Level 9.6 mg/dL (8.5-10.1) Total Bilirubin 0.4 mg/dL (0.2-1.0) Aspartate Amino Transf (AST/SGOT) 23 U/L (15-37) Alanine Aminotransferase (ALT/SGPT) 17 U/L (14-59) Alkaline Phosphatase 127 U/L (46-116) Troponin I Quantitative < 0.017 ng/mL (0.000-0.055) < 0.017 ng/mL (0.000-0.055) FT-Zyd-K-Type Natriuretic Peptide 6185 pg/mL (0-449) Total Protein 7.1 g/dL (6.4-8.2) Albumin 2.6 g/dL (3.4-5.0) Albumin/Globulin Ratio 0.6 (1.0-1.7) Urine Collection Type U cath Urine Color Yellow Urine Clarity Clear Urine pH 5.0 Urine Specific [place] 1.020 Urine Protein Negative mg/dL (NEG-TRACE) Urine Glucose (UA) Negative mg/dL (NEG) Urine Ketones (Stick) Negative mg/dL (NEG) Urine Blood Negative (NEG) Urine Nitrite Negative (NEG) Urine Bilirubin Small (NEG) Urine Urobilinogen Dipstick 1.0 mg/dL (0.2 mg/dL) Urine Leukocyte Esterase Negative (NEG) Urine RBC Occ /HPF (0-2) Urine WBC 1-4 /HPF (0-4) Urine Squamous Epithelial Cells Few /LPF Urine Amorphous Sediment Present /HPF Urine Bacteria 0 /HPF (0-FEW) Urine Hyaline Casts Moderate /HPF Urine Mucus Slight /LPF Stool Occult Blood Positive (NEG) Test 05/10/18 22:35 05/11/18 04:48 05/12/18 03:50 Troponin I Quantitative < 0.017 ng/mL (0.000-0.055) White Blood Count 4.0 x10^3/uL (4.0-11.0) 4.2 x10^3/uL (4.0-11.0) Red Blood Count 2.45 x10^6/uL (3.50-5.40) 3.08 x10^6/uL (3.50-5.40) Hemoglobin 7.5 g/dL (12.0-15.5) 9.3 g/dL (12.0-15.5) Hematocrit 23.8 % (36.0-47.0) 29.3 % (36.0-47.0) Mean Corpuscular Volume 97 fL (79-100) 95 fL (79-100) Mean Corpuscular Hemoglobin 31 pg (25-35) 30 pg (25-35) Mean Corpuscular Hemoglobin Concent 32 g/dL (31-37) 32 g/dL (31-37) Red Cell Distribution Width 22.4 % (11.5-14.5) 21.4 % (11.5-14.5) Platelet Count 126 x10^3/uL (140-400) 148 x10^3/uL (140-400) Neutrophils (%) (Auto) 69 % (31-73) Lymphocytes (%) (Auto) 22 % (24-48) Monocytes (%) (Auto) 8 % (0-9) Eosinophils (%) (Auto) 1 % (0-3) Basophils (%) (Auto) 0 % (0-3) Neutrophils # (Auto) 2.7 x10^3uL (1.8-7.7) Lymphocytes # (Auto) 0.9 x10^3/uL (1.0-4.8) Monocytes # (Auto) 0.3 x10^3/uL (0.0-1.1) Eosinophils # (Auto) 0.0 x10^3/uL (0.0-0.7) Basophils # (Auto) 0.0 x10^3/uL (0.0-0.2) Segmented Neutrophils % 74 % (35-66) Band Neutrophils % 1 % (0-9) Lymphocytes % 18 % (24-48) Monocytes % 7 % (0-10) Nucleated Red Blood Cells 2 Platelet Estimate Decreased (ADEQUATE) Large Platelets Occ Anisocytosis Mod Sodium Level 146 mmol/L (136-145) 144 mmol/L (136-145) Potassium Level 3.8 mmol/L (3.5-5.1) 3.5 mmol/L (3.5-5.1) Chloride Level 106 mmol/L (98-107) 105 mmol/L (98-107) Carbon Dioxide Level 31 mmol/L (21-32) 27 mmol/L (21-32) Anion Gap 9 (6-14) 12 (6-14) Blood Urea Nitrogen 59 mg/dL (7-20) 46 mg/dL (7-20) Creatinine 2.9 mg/dL (0.6-1.0) 2.3 mg/dL (0.6-1.0) Estimated GFR (Cockcroft-Gault) 18.7 24.4 BUN/Creatinine Ratio 20 (6-20) Glucose Level 81 mg/dL (70-99) 80 mg/dL (70-99) Calcium Level 8.9 mg/dL (8.5-10.1) 8.7 mg/dL (8.5-10.1) Total Bilirubin 0.3 mg/dL (0.2-1.0) Aspartate Amino Transf (AST/SGOT) 17 U/L (15-37) Alanine Aminotransferase (ALT/SGPT) 15 U/L (14-59) Alkaline Phosphatase 106 U/L (46-116) Total Protein 5.8 g/dL (6.4-8.2) Albumin 2.2 g/dL (3.4-5.0) Albumin/Globulin Ratio 0.6 (1.0-1.7) Iron Level 62 ug/dL (50-170) Total Iron Binding Capacity 198 ug/dL (250-450) Iron Saturation 31 % (15-34) Laboratory Tests Test 05/12/18 03:50 White Blood Count 4.2 x10^3/uL (4.0-11.0) Red Blood Count 3.08 x10^6/uL (3.50-5.40) Hemoglobin 9.3 g/dL (12.0-15.5) Hematocrit 29.3 % (36.0-47.0) Mean Corpuscular Volume 95 fL (79-100) Mean Corpuscular Hemoglobin 30 pg (25-35) Mean Corpuscular Hemoglobin Concent 32 g/dL (31-37) Red Cell Distribution Width 21.4 % (11.5-14.5) Platelet Count 148 x10^3/uL (140-400) Sodium Level 144 mmol/L (136-145) Potassium Level 3.5 mmol/L (3.5-5.1) Chloride Level 105 mmol/L (98-107) Carbon Dioxide Level 27 mmol/L (21-32) Anion Gap 12 (6-14) Blood Urea Nitrogen 46 mg/dL (7-20) Creatinine 2.3 mg/dL (0.6-1.0) Estimated GFR (Cockcroft-Gault) 24.4 Glucose Level 80 mg/dL (70-99) Calcium Level 8.7 mg/dL (8.5-10.1) Iron Level 62 ug/dL (50-170) Total Iron Binding Capacity 198 ug/dL (250-450) Iron Saturation 31 % (15-34) TSH a little high last month. Vitals/I & O Vital Sign - Last 24 Hours 05/11/18 05/11/18 05/11/18 05/11/18 15:12 16:12 17:12 18:12 Temp 98.4 97.3 97.3 97.5 98.4 97.3 97.3 97.5 Pulse 69 70 65 70 Resp 16 18 18 16 B/P (MAP) 98/41 (60) 121/60 113/48 115/45 Pulse Ox 94 O2 Delivery Nasal Cannula O2 Flow Rate 2.0 05/11/18 05/11/18 05/11/18 05/11/18 19:15 19:20 20:00 23:35 Temp 97.4 97.4 97.3 97.4 97.4 97.3 Pulse 68 68 68 Resp 20 19 17 B/P (MAP) 106/52 106/52 (70) 106/47 (66) Pulse Ox 99 93 O2 Delivery Nasal Cannula Nasal Cannula Room Air O2 Flow Rate 2.0 2.0 05/12/18 05/12/18 05/12/18 05/12/18 03:10 07:00 08:00 08:46 Temp 97.6 97.4 97.6 97.4 Pulse 70 70 70 Resp 17 18 B/P (MAP) 103/52 (69) 96/41 (59) 96/41 Pulse Ox 98 99 O2 Delivery Nasal Cannula Nasal Cannula Nasal Cannula O2 Flow Rate 2.0 2.0 2.0 05/12/18 11:00 Temp 97.3 97.3 Pulse 73 Resp 18 B/P (MAP) 95/44 (61) Pulse Ox 98 O2 Delivery Room Air Intake and Output 05/11/18 05/11/18 05/12/18 14:59 22:59 06:59 Intake Total 340 ml 30 ml 600 ml Output Total 1 ml Balance 340 ml 29 ml 600 ml Problem List Problems Medical Problems: (1) Acute electrocardiogram changes Status: Acute (2) Dyspnea Status: Acute Assessment Chronic anemia. ACD likely contributes. Post-op anatomy or hypothyroidism also could. Would not be surprised if had small bowel angiodysplasiae as well to account for the heme positivity. Given 2 prior normal colonoscopies and 3 prior EGD's, not likely gut lesion we would identify if re-scope. Plan of Care Note Would give iron daily at least bid; tid if can tolerate and monitor. If this maintains hemoglobin level, no further w/u needed. No investigation planned at this point. Thanks. MARK FINNEGAN MD May 12, 2018 15:01
--- NOTE | 2018-05-12 15:17 | PDOC ---
PULMONARY PROGRESS NOTES Subjective PT FEELS BETTER TODAY AFTER TRANSFUSION Vitals Vital Signs Date Time Temp Pulse Resp B/P (MAP) Pulse Ox O2 Delivery O2 Flow Rate FiO2 05/12/18 11:00 97.3 73 18 95/44 (61) 98 Room Air 97.3 05/12/18 08:00 2.0 ROS: No Nausea, No Chest Pain, No Abdominal Pain, No Increase Cough General: Alert, No acute distress Lungs: Clear Cardiovascular: S1, S2 Abdomen: Soft, Non-tender Neuro Exam: Alert Extremities: Other Skin: Warm Labs Laboratory Tests Test 05/10/18 15:25 05/10/18 17:55 05/10/18 17:59 05/10/18 19:50 White Blood Count 6.9 x10^3/uL (4.0-11.0) Red Blood Count 2.89 x10^6/uL (3.50-5.40) Hemoglobin 8.8 g/dL (12.0-15.5) Hematocrit 28.0 % (36.0-47.0) Mean Corpuscular Volume 97 fL (79-100) Mean Corpuscular Hemoglobin 30 pg (25-35) Mean Corpuscular Hemoglobin Concent 31 g/dL (31-37) Red Cell Distribution Width 23.1 % (11.5-14.5) Platelet Count 140 x10^3/uL (140-400) Neutrophils (%) (Auto) 76 % (31-73) Lymphocytes (%) (Auto) 17 % (24-48) Monocytes (%) (Auto) 6 % (0-9) Eosinophils (%) (Auto) 0 % (0-3) Basophils (%) (Auto) 1 % (0-3) Neutrophils # (Auto) 5.2 x10^3uL (1.8-7.7) Lymphocytes # (Auto) 1.2 x10^3/uL (1.0-4.8) Monocytes # (Auto) 0.4 x10^3/uL (0.0-1.1) Eosinophils # (Auto) 0.0 x10^3/uL (0.0-0.7) Basophils # (Auto) 0.1 x10^3/uL (0.0-0.2) Platelet Estimate Adequate (ADEQUATE) Polychromasia Present Anisocytosis Mod Macrocytosis Slight Spherocytes Occ Ovalocytes Few Prothrombin Time 12.9 SEC (11.7-14.0) Prothromb Time International Ratio 1.0 (0.8-1.1) Activated Partial Thromboplast Time 34 SEC (24-38) Sodium Level 146 mmol/L (136-145) Potassium Level 4.0 mmol/L (3.5-5.1) Chloride Level 104 mmol/L (98-107) Carbon Dioxide Level 26 mmol/L (21-32) Anion Gap 16 (6-14) Blood Urea Nitrogen 58 mg/dL (7-20) Creatinine 2.9 mg/dL (0.6-1.0) Estimated GFR (Cockcroft-Gault) 18.7 BUN/Creatinine Ratio 20 (6-20) Glucose Level 108 mg/dL (70-99) Calcium Level 9.6 mg/dL (8.5-10.1) Total Bilirubin 0.4 mg/dL (0.2-1.0) Aspartate Amino Transf (AST/SGOT) 23 U/L (15-37) Alanine Aminotransferase (ALT/SGPT) 17 U/L (14-59) Alkaline Phosphatase 127 U/L (46-116) Troponin I Quantitative < 0.017 ng/mL (0.000-0.055) < 0.017 ng/mL (0.000-0.055) YZ-Fat-U-Type Natriuretic Peptide 6185 pg/mL (0-449) Total Protein 7.1 g/dL (6.4-8.2) Albumin 2.6 g/dL (3.4-5.0) Albumin/Globulin Ratio 0.6 (1.0-1.7) Urine Collection Type U cath Urine Color Yellow Urine Clarity Clear Urine pH 5.0 Urine Specific [place] 1.020 Urine Protein Negative mg/dL (NEG-TRACE) Urine Glucose (UA) Negative mg/dL (NEG) Urine Ketones (Stick) Negative mg/dL (NEG) Urine Blood Negative (NEG) Urine Nitrite Negative (NEG) Urine Bilirubin Small (NEG) Urine Urobilinogen Dipstick 1.0 mg/dL (0.2 mg/dL) Urine Leukocyte Esterase Negative (NEG) Urine RBC Occ /HPF (0-2) Urine WBC 1-4 /HPF (0-4) Urine Squamous Epithelial Cells Few /LPF Urine Amorphous Sediment Present /HPF Urine Bacteria 0 /HPF (0-FEW) Urine Hyaline Casts Moderate /HPF Urine Mucus Slight /LPF Stool Occult Blood Positive (NEG) Test 05/10/18 22:35 05/11/18 04:48 05/12/18 03:50 Troponin I Quantitative < 0.017 ng/mL (0.000-0.055) White Blood Count 4.0 x10^3/uL (4.0-11.0) 4.2 x10^3/uL (4.0-11.0) Red Blood Count 2.45 x10^6/uL (3.50-5.40) 3.08 x10^6/uL (3.50-5.40) Hemoglobin 7.5 g/dL (12.0-15.5) 9.3 g/dL (12.0-15.5) Hematocrit 23.8 % (36.0-47.0) 29.3 % (36.0-47.0) Mean Corpuscular Volume 97 fL (79-100) 95 fL (79-100) Mean Corpuscular Hemoglobin 31 pg (25-35) 30 pg (25-35) Mean Corpuscular Hemoglobin Concent 32 g/dL (31-37) 32 g/dL (31-37) Red Cell Distribution Width 22.4 % (11.5-14.5) 21.4 % (11.5-14.5) Platelet Count 126 x10^3/uL (140-400) 148 x10^3/uL (140-400) Neutrophils (%) (Auto) 69 % (31-73) Lymphocytes (%) (Auto) 22 % (24-48) Monocytes (%) (Auto) 8 % (0-9) Eosinophils (%) (Auto) 1 % (0-3) Basophils (%) (Auto) 0 % (0-3) Neutrophils # (Auto) 2.7 x10^3uL (1.8-7.7) Lymphocytes # (Auto) 0.9 x10^3/uL (1.0-4.8) Monocytes # (Auto) 0.3 x10^3/uL (0.0-1.1) Eosinophils # (Auto) 0.0 x10^3/uL (0.0-0.7) Basophils # (Auto) 0.0 x10^3/uL (0.0-0.2) Segmented Neutrophils % 74 % (35-66) Band Neutrophils % 1 % (0-9) Lymphocytes % 18 % (24-48) Monocytes % 7 % (0-10) Nucleated Red Blood Cells 2 Platelet Estimate Decreased (ADEQUATE) Large Platelets Occ Anisocytosis Mod Sodium Level 146 mmol/L (136-145) 144 mmol/L (136-145) Potassium Level 3.8 mmol/L (3.5-5.1) 3.5 mmol/L (3.5-5.1) Chloride Level 106 mmol/L (98-107) 105 mmol/L (98-107) Carbon Dioxide Level 31 mmol/L (21-32) 27 mmol/L (21-32) Anion Gap 9 (6-14) 12 (6-14) Blood Urea Nitrogen 59 mg/dL (7-20) 46 mg/dL (7-20) Creatinine 2.9 mg/dL (0.6-1.0) 2.3 mg/dL (0.6-1.0) Estimated GFR (Cockcroft-Gault) 18.7 24.4 BUN/Creatinine Ratio 20 (6-20) Glucose Level 81 mg/dL (70-99) 80 mg/dL (70-99) Calcium Level 8.9 mg/dL (8.5-10.1) 8.7 mg/dL (8.5-10.1) Total Bilirubin 0.3 mg/dL (0.2-1.0) Aspartate Amino Transf (AST/SGOT) 17 U/L (15-37) Alanine Aminotransferase (ALT/SGPT) 15 U/L (14-59) Alkaline Phosphatase 106 U/L (46-116) Total Protein 5.8 g/dL (6.4-8.2) Albumin 2.2 g/dL (3.4-5.0) Albumin/Globulin Ratio 0.6 (1.0-1.7) Iron Level 62 ug/dL (50-170) Total Iron Binding Capacity 198 ug/dL (250-450) Iron Saturation 31 % (15-34) Laboratory Tests Test 05/12/18 03:50 White Blood Count 4.2 x10^3/uL (4.0-11.0) Red Blood Count 3.08 x10^6/uL (3.50-5.40) Hemoglobin 9.3 g/dL (12.0-15.5) Hematocrit 29.3 % (36.0-47.0) Mean Corpuscular Volume 95 fL (79-100) Mean Corpuscular Hemoglobin 30 pg (25-35) Mean Corpuscular Hemoglobin Concent 32 g/dL (31-37) Red Cell Distribution Width 21.4 % (11.5-14.5) Platelet Count 148 x10^3/uL (140-400) Sodium Level 144 mmol/L (136-145) Potassium Level 3.5 mmol/L (3.5-5.1) Chloride Level 105 mmol/L (98-107) Carbon Dioxide Level 27 mmol/L (21-32) Anion Gap 12 (6-14) Blood Urea Nitrogen 46 mg/dL (7-20) Creatinine 2.3 mg/dL (0.6-1.0) Estimated GFR (Cockcroft-Gault) 24.4 Glucose Level 80 mg/dL (70-99) Calcium Level 8.7 mg/dL (8.5-10.1) Iron Level 62 ug/dL (50-170) Total Iron Binding Capacity 198 ug/dL (250-450) Iron Saturation 31 % (15-34) Medications Active Scripts Medications Dose Route/Sig Max Daily Dose Days Date Category Dose Instructions Ferrous Sulfate 325 Mg Tablet 325 Mg PO QODAY 04/27/18 Reported Duoneb 0.5-3(2.5) Mg/3 Ml (Albuterol/Ipratropium) 3 Ml Ampul.neb 3 Ml NEB 1X 30 04/07/18 Rx Prednisone (Prednisone) 10 Mg Tablet 10 Mg PO DAILY 28 04/07/18 Rx Please take 4 tabs po daily for 5 days then 3 tabs po daily for 7 days then 2 tabs po daily for 7 days and then continue with 1 tab po daily Metoprolol Succinate ( Xl ) (Metoprolol Succinate) 25 Mg Tab.er.24h 25 Mg PO DAILY 30 04/06/18 Rx Proair Hfa Inhaler (Albuterol Sulfate) 8.5 Gm Hfa.aer.ad 1 Puff INH PRN Q6HRS PRN 04/03/18 Reported Hydroxychloroquine Sulfate 200 Mg Tablet 1 Tab PO BID 04/03/18 Reported Vitamin D3 (Cholecalciferol (Vitamin D3)) 1,000 Unit Tablet 1,000 Unit PO DAILY 02/19/15 Reported Levothyroxine Sodium 50 Mcg Tablet 75 Mcg PO DAILY 01/24/13 Reported Aspirin Ec (Aspirin) 81 Mg Tablet.dr 81 Mg PO DAILY 01/24/13 Reported Impression . IMPRESSION: 1. Persistent bilateral pulmonary infiltrates, differential includes interstitial lung disease and autoimmune related interstitial lung disease, possible congestive heart failure, doubt new infection. 2. Progressive dyspnea, multifactorial secondary to chronic anemia, bilateral pulmonary infiltrates and weakness. 3. Severe secondary pulmonary hypertension. 4. Aortic stenosis. 5. Acute on chronic renal insufficiency. 6. Coronary artery disease. Plan . FOLLOW GI RECOMMENDATION NEEDS PT/OT WILL D/W CARDIOLOGY 1. V/Q scan reviewed, low probability, doubt that this is related to pulmonary embolism. 2. I suspect dyspnea is multifactorial. She does have severe pulmonary hypertension. Recommend right heart catheterization with vasodilator administration. 3. Follow Nephrology consult input. 4. Transfuse. 5. GI consultation for positive occult blood. 6. No need for antibiotics at this time. EVELIN GONZALEZ MD May 12, 2018 15:17
--- NOTE | 2018-05-12 16:40 | EKG ---
[facility] [address] [place] [address] Test Date: 2018-05-12 Test Time: 15:59:06 Pat Name: ANDI MARTINEZ Department: Room: 260 1 Gender: F Business Process Coordinator: NUPUR : 1935 Requested By: ELMIRA HURTADO Order Number: [id number] Reading MD: Elmira Hurtado MD Measurements Intervals [place] Rate: 81 P: 36 [place]: 132 QRS: 11 QRSD: 100 T: 154 QT: 392 QTc: 456 Interpretive Statements SINUS RHYTHM LVH VERSUS ANTEROALTERAL ISCHEMIA Electronically Signed On 05-16-2018 14:10:39 CDT by Elmira Hurtado MD
[2018-05-12] MEDS ORDERED: ROPI0.5T PO (17:26)
[2018-05-12] MEDS: IV NORMAL SALINE 1000ML BAG 1,000 ML IV SCH (18:14)
[2018-05-12 19:37] VITALS: BP 108/51
[2018-05-12] MEDS: ATORVASTATIN CALCIUM 20 MG TABLET PO SCH (20:46)
[2018-05-12 23:17] VITALS: BP 119/55
[2018-05-13] VITALS (14 sets, daily range): BP systolic 106–140; BP diastolic 49–72
[2018-05-13 04:44] LABS: HEMATOCRIT 26.4 % (36.0-47.0); HEMOGLOBIN 8.5 g/dL (12.0-15.5); RED BLOOD COUNT 2.77 x10^6/uL (3.50-5.40); RED CELL DISTRIBUTION WIDTH 21.6 % (11.5-14.5); WHITE BLOOD COUNT 4.6 x10^3/uL (4.0-11.0)
[2018-05-13 05:03] LABS: CALCIUM 8.3 mg/dL (8.5-10.1); CREATININE 2.3 mg/dL (0.6-1.0); GFR 24.4; POTASSIUM 3.8 mmol/L (3.5-5.1)
[2018-05-13] MEDS: IV NORMAL SALINE 1000ML BAG 1,000 ML IV SCH ×2 (07:05→20:25)
[2018-05-13] MEDS: CHOLECALCIFEROL (VITAMIN D3) 1,000 UNIT TABLET PO SCH (08:24)
[2018-05-13] MEDS: METOPROLOL SUCC 24HR ER 25 MG TAB.ER.24H. PO SCH (08:25)
[2018-05-13] MEDS: CEPHALEXIN 250 MG CAPSULE. PO SCH ×3 (08:25→21:24)
[2018-05-13] MEDS: predniSONE 10 MG TABLET PO SCH (08:25)
[2018-05-13] MEDS: ASPIRIN ENTERIC COATED 81 MG TABLET.DR. PO SCH (08:25)
[2018-05-13] MEDS: LEVOTHYROXINE 75 MCG TABLET PO SCH (08:25)
--- NOTE | 2018-05-13 09:31 | PDOC ---
PULMONARY PROGRESS NOTES Subjective PT FEELS BETTER TODAY AFTER TRANSFUSION Vitals Vital Signs Date Time Temp Pulse Resp B/P (MAP) Pulse Ox O2 Delivery O2 Flow Rate FiO2 05/13/18 08:25 81 128/64 05/13/18 07:00 98.2 18 99 Room Air 98.2 05/12/18 08:00 2.0 ROS: No Nausea, No Chest Pain, No Abdominal Pain, No Increase Cough General: Alert, No acute distress Lungs: Clear Cardiovascular: S1, S2 Abdomen: Soft, Non-tender Neuro Exam: Alert Extremities: Other Skin: Warm Labs Laboratory Tests Test 05/12/18 03:50 05/13/18 04:00 05/13/18 04:05 White Blood Count 4.2 x10^3/uL (4.0-11.0) 4.6 x10^3/uL (4.0-11.0) Red Blood Count 3.08 x10^6/uL (3.50-5.40) 2.77 x10^6/uL (3.50-5.40) Hemoglobin 9.3 g/dL (12.0-15.5) 8.5 g/dL (12.0-15.5) Hematocrit 29.3 % (36.0-47.0) 26.4 % (36.0-47.0) Mean Corpuscular Volume 95 fL (79-100) 96 fL (79-100) Mean Corpuscular Hemoglobin 30 pg (25-35) 31 pg (25-35) Mean Corpuscular Hemoglobin Concent 32 g/dL (31-37) 32 g/dL (31-37) Red Cell Distribution Width 21.4 % (11.5-14.5) 21.6 % (11.5-14.5) Platelet Count 148 x10^3/uL (140-400) 135 x10^3/uL (140-400) Sodium Level 144 mmol/L (136-145) 140 mmol/L (136-145) Potassium Level 3.5 mmol/L (3.5-5.1) 3.8 mmol/L (3.5-5.1) Chloride Level 105 mmol/L (98-107) 104 mmol/L (98-107) Carbon Dioxide Level 27 mmol/L (21-32) 24 mmol/L (21-32) Anion Gap 12 (6-14) 12 (6-14) Blood Urea Nitrogen 46 mg/dL (7-20) 46 mg/dL (7-20) Creatinine 2.3 mg/dL (0.6-1.0) 2.3 mg/dL (0.6-1.0) Estimated GFR (Cockcroft-Gault) 24.4 24.4 Glucose Level 80 mg/dL (70-99) 127 mg/dL (70-99) Calcium Level 8.7 mg/dL (8.5-10.1) 8.3 mg/dL (8.5-10.1) Iron Level 62 ug/dL (50-170) Total Iron Binding Capacity 198 ug/dL (250-450) Iron Saturation 31 % (15-34) Troponin I Quantitative < 0.017 ng/mL (0.000-0.055) Laboratory Tests Test 05/13/18 04:00 05/13/18 04:05 White Blood Count 4.6 x10^3/uL (4.0-11.0) Red Blood Count 2.77 x10^6/uL (3.50-5.40) Hemoglobin 8.5 g/dL (12.0-15.5) Hematocrit 26.4 % (36.0-47.0) Mean Corpuscular Volume 96 fL (79-100) Mean Corpuscular Hemoglobin 31 pg (25-35) Mean Corpuscular Hemoglobin Concent 32 g/dL (31-37) Red Cell Distribution Width 21.6 % (11.5-14.5) Platelet Count 135 x10^3/uL (140-400) Sodium Level 140 mmol/L (136-145) Potassium Level 3.8 mmol/L (3.5-5.1) Chloride Level 104 mmol/L (98-107) Carbon Dioxide Level 24 mmol/L (21-32) Anion Gap 12 (6-14) Blood Urea Nitrogen 46 mg/dL (7-20) Creatinine 2.3 mg/dL (0.6-1.0) Estimated GFR (Cockcroft-Gault) 24.4 Glucose Level 127 mg/dL (70-99) Calcium Level 8.3 mg/dL (8.5-10.1) Medications Active Scripts Medications Dose Route/Sig Max Daily Dose Days Date Category Dose Instructions Ferrous Sulfate 325 Mg Tablet 325 Mg PO QODAY 04/27/18 Reported Duoneb 0.5-3(2.5) Mg/3 Ml (Albuterol/Ipratropium) 3 Ml Ampul.neb 3 Ml NEB 1X 30 04/07/18 Rx Prednisone (Prednisone) 10 Mg Tablet 10 Mg PO DAILY 28 04/07/18 Rx Please take 4 tabs po daily for 5 days then 3 tabs po daily for 7 days then 2 tabs po daily for 7 days and then continue with 1 tab po daily Metoprolol Succinate ( Xl ) (Metoprolol Succinate) 25 Mg Tab.er.24h 25 Mg PO DAILY 30 04/06/18 Rx Proair Hfa Inhaler (Albuterol Sulfate) 8.5 Gm Hfa.aer.ad 1 Puff INH PRN Q6HRS PRN 04/03/18 Reported Hydroxychloroquine Sulfate 200 Mg Tablet 1 Tab PO BID 04/03/18 Reported Vitamin D3 (Cholecalciferol (Vitamin D3)) 1,000 Unit Tablet 1,000 Unit PO DAILY 02/19/15 Reported Levothyroxine Sodium 50 Mcg Tablet 75 Mcg PO DAILY 01/24/13 Reported Aspirin Ec (Aspirin) 81 Mg Tablet.dr 81 Mg PO DAILY 01/24/13 Reported Impression . IMPRESSION: 1. Persistent bilateral pulmonary infiltrates, differential includes interstitial lung disease and autoimmune related interstitial lung disease, possible congestive heart failure, doubt new infection. 2. Progressive dyspnea, multifactorial secondary to chronic anemia, bilateral pulmonary infiltrates and weakness. 3. Severe secondary pulmonary hypertension. 4. Aortic stenosis. 5. Acute on chronic renal insufficiency. 6. Coronary artery disease. Plan . RIGHT CATH TODAY FOLLOW GI RECOMMENDATION NEEDS PT/OT EVELIN GONZALEZ MD May 13, 2018 09:31
--- NOTE | 2018-05-13 10:57 | PDOC ---
PROGRESS NOTES Chief Complaint Chief Complaint IMPRESSION Acute hypoxic resp failure Chronic upper lobe pulmonary infiltrates, right greater than left, have improved slightly since 04/03/2018. GENERALIZED WEAKNESS, SLOW PROGRESS ANEMIA, NORMOCYTIC WITH HEME POS STOOL IN ER RECENT ECHO C/W Doppler and Color Flow revealed ///moderately severe tricuspid regurgitation. Severe pulmonary hypertension. 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 Mildly elevated left ventricular pressure. Acute renal injury baseline cr approx 1.7 -2.0 ATN, NEW NOT BETTER give iron daily at least bid; tid if can tolerate and monitor. RENAL SONO ORDERED History of Present Illness History of Present Illness Pt was seen and examined today, feeling SOB and was coughing occasionally Sitting in bed eating lunch Family was present at bedside Explained to pt that her SOB is likely multifactorial- s/s point to etiology being potentially anemia, heart, lungs, kidneys Answered family's questions and explained plan RIGHT HEART CATH TODAY Vitals Vitals Vital Signs Date Time Temp Pulse Resp B/P (MAP) Pulse Ox O2 Delivery O2 Flow Rate FiO2 05/13/18 08:25 81 128/64 05/13/18 08:00 Room Air 05/13/18 07:00 98.2 18 99 98.2 05/12/18 08:00 2.0 Physical Exam General: Alert, Oriented X3, Cooperative, mild distress (with minimal exertion) Heart: Regular rate, Normal S1, Normal S2, Other (3/6 systolic murmur ) Lungs: Clear Abdomen: Normal bowel sounds, Soft, No tenderness Extremities: No cyanosis, Normal pulses, Other Skin: No significant lesion Labs LABS Right heart catheterization Adenosine infusion The patient is an 82-year-old female who was admitted with shortness of breath. On initial echocardiogram patient's right-sided pressures were significantly elevated. In this setting we recommended right heart catheterization with an adenosine infusion to determine the extent of the patient's pulmonary hypertension and if it was responsive to adenosine. The patient has had difficulty to shortness of breath in the setting of right heart catheterization was recommended with infusion of adenosine. The risks and benefits of the procedure were discussed with the patient. She agreed to proceed. After informed consent was obtained the patient was brought to the catheterization lab. The area of the right femoral vein was prepared usual manner with Betadine, sterile draping and local anesthetic. An 18-gauge needle was used to enter the right femoral vein, a wire placed and a 8 Citizen Of [place] sheath placed over the wire. A Forest-Renita catheter was initially through the right heart and a wedge pressure was obtained. Following this a pulmonary artery pressure was obtained. It was not severely elevated but in this setting we did perform an adenosine infusion test with a peak infusion of 150 mcg/kg/m of adenosine. Pulmonary pressures at this dose were measured. The adenosine was discontinued. On pullback right ventricular pressure and a right atrial pressure was obtained. The Forest-Renita catheter was removed from the patient. The sheath was removed from the patient. Hemostasis was obtained via direct pressure. The patient was moved to the holding area in stable condition. Pressures Pulmonary capillary wedge pressure of 12/9/8. PA pressure pre-infusion of 36/14/21 PA pressure postinfusion of 32//20 RV pressure 36/6/8 RA pressure 10/9/8. <Conclusion> Normal wedge pressures. Mildly elevated PA pressure with minimum response to IV adenosine. Signed by : Javier Faye MD Electronically Approved : 05/13/2018 15:56:59 Laboratory Tests Test 05/13/18 04:00 05/13/18 04:05 White Blood Count 4.6 x10^3/uL (4.0-11.0) Red Blood Count 2.77 x10^6/uL (3.50-5.40) Hemoglobin 8.5 g/dL (12.0-15.5) Hematocrit 26.4 % (36.0-47.0) Mean Corpuscular Volume 96 fL (79-100) Mean Corpuscular Hemoglobin 31 pg (25-35) Mean Corpuscular Hemoglobin Concent 32 g/dL (31-37) Red Cell Distribution Width 21.6 % (11.5-14.5) Platelet Count 135 x10^3/uL (140-400) Sodium Level 140 mmol/L (136-145) Potassium Level 3.8 mmol/L (3.5-5.1) Chloride Level 104 mmol/L (98-107) Carbon Dioxide Level 24 mmol/L (21-32) Anion Gap 12 (6-14) Blood Urea Nitrogen 46 mg/dL (7-20) Creatinine 2.3 mg/dL (0.6-1.0) Estimated GFR (Cockcroft-Gault) 24.4 Glucose Level 127 mg/dL (70-99) Calcium Level 8.3 mg/dL (8.5-10.1) Assessment and Plan Assessmemt and Plan Problems Medical Problems: (1) Acute electrocardiogram changes Status: Acute (2) Dyspnea Status: Acute Comment Review of Relevant I have reviewed the following items kade (where applicable) has been applied. Labs Laboratory Tests Test 05/12/18 03:50 05/13/18 04:00 05/13/18 04:05 White Blood Count 4.2 x10^3/uL (4.0-11.0) 4.6 x10^3/uL (4.0-11.0) Red Blood Count 3.08 x10^6/uL (3.50-5.40) 2.77 x10^6/uL (3.50-5.40) Hemoglobin 9.3 g/dL (12.0-15.5) 8.5 g/dL (12.0-15.5) Hematocrit 29.3 % (36.0-47.0) 26.4 % (36.0-47.0) Mean Corpuscular Volume 95 fL (79-100) 96 fL (79-100) Mean Corpuscular Hemoglobin 30 pg (25-35) 31 pg (25-35) Mean Corpuscular Hemoglobin Concent 32 g/dL (31-37) 32 g/dL (31-37) Red Cell Distribution Width 21.4 % (11.5-14.5) 21.6 % (11.5-14.5) Platelet Count 148 x10^3/uL (140-400) 135 x10^3/uL (140-400) Sodium Level 144 mmol/L (136-145) 140 mmol/L (136-145) Potassium Level 3.5 mmol/L (3.5-5.1) 3.8 mmol/L (3.5-5.1) Chloride Level 105 mmol/L (98-107) 104 mmol/L (98-107) Carbon Dioxide Level 27 mmol/L (21-32) 24 mmol/L (21-32) Anion Gap 12 (6-14) 12 (6-14) Blood Urea Nitrogen 46 mg/dL (7-20) 46 mg/dL (7-20) Creatinine 2.3 mg/dL (0.6-1.0) 2.3 mg/dL (0.6-1.0) Estimated GFR (Cockcroft-Gault) 24.4 24.4 Glucose Level 80 mg/dL (70-99) 127 mg/dL (70-99) Calcium Level 8.7 mg/dL (8.5-10.1) 8.3 mg/dL (8.5-10.1) Iron Level 62 ug/dL (50-170) Total Iron Binding Capacity 198 ug/dL (250-450) Iron Saturation 31 % (15-34) Troponin I Quantitative < 0.017 ng/mL (0.000-0.055) Laboratory Tests Test 05/13/18 04:00 05/13/18 04:05 White Blood Count 4.6 x10^3/uL (4.0-11.0) Red Blood Count 2.77 x10^6/uL (3.50-5.40) Hemoglobin 8.5 g/dL (12.0-15.5) Hematocrit 26.4 % (36.0-47.0) Mean Corpuscular Volume 96 fL (79-100) Mean Corpuscular Hemoglobin 31 pg (25-35) Mean Corpuscular Hemoglobin Concent 32 g/dL (31-37) Red Cell Distribution Width 21.6 % (11.5-14.5) Platelet Count 135 x10^3/uL (140-400) Sodium Level 140 mmol/L (136-145) Potassium Level 3.8 mmol/L (3.5-5.1) Chloride Level 104 mmol/L (98-107) Carbon Dioxide Level 24 mmol/L (21-32) Anion Gap 12 (6-14) Blood Urea Nitrogen 46 mg/dL (7-20) Creatinine 2.3 mg/dL (0.6-1.0) Estimated GFR (Cockcroft-Gault) 24.4 Glucose Level 127 mg/dL (70-99) Calcium Level 8.3 mg/dL (8.5-10.1) Medications Current Medications Aspirin (Children'S Aspirin) 324 mg 1X ONCE PO ; Start 05/10/18 at 15:15; Stop 05/10/18 at 15:20; Status DC Acetaminophen (Tylenol) 650 mg PRN Q4HRS PRN PO PAIN; Start 05/10/18 at 17:00; Stop 05/11/18 at 16:59; Status DC Aspirin (Children'S Aspirin) 324 mg 1X ONCE PO Last administered on 05/10/18 21:31; Start 05/10/18 at 18:00; Stop 05/10/18 at 18:01; Status DC Albuterol Sulfate (Ventolin Neb Soln) 2.5 mg PRN Q6HRS PRN INH SHORTNESS OF BREATH; Start 05/10/18 at 20:15; Stop 05/10/18 at 20:49; Status DC Aspirin (Ecotrin) 81 mg DAILY PO Last administered on 05/13/18 08:25; Start at 09:00 Vitamin D (Vitamin D3) 1,000 unit DAILY PO Last administered on 05/13/18at 08:24 ; Start 05/11/18 at 09:00 Ferrous Sulfate (Feosol) 325 mg QODAY PO Last administered on 05/12/18at 08:49; Start 05/12/18 at 09:00 Albuterol/ Ipratropium (Duoneb) 3 ml Q4HRS NEB ; Start 05/11/18 at 00:00; Stop 05/11/18 at 00:00; Status DC Metoprolol Succinate (Toprol Xl) 25 mg DAILY PO Last administered on 05/13/18 08:25; Start 05/11/18 at 09:00 Levothyroxine Sodium (Synthroid) 75 mcg DAILY06 PO Last administered on 08:25; Start 05/11/18 at 06:00 Heparin Sodium (Porcine) (Heparin Sodium) 5,000 unit Q8HRS SQ Last administered on 05/10/18at 21:34; Start 05/10/18 at 22:00; Stop 05/11/18 at 16:40 ; Status DC Sodium Chloride 1,000 ml @ 75 mls/hr [id number] IV Last administered on at 08:29; Start 05/10/18 at 20:30; Stop 05/12/18 at 11:58; Status DC Albuterol Sulfate (Ventolin Neb Soln) 2.5 mg PRN Q4HRS PRN NEB SHORTNESS OF BREATH; Start 05/10/18 at 21:00 Atorvastatin Calcium (Lipitor) 20 mg QHS PO Last administered on 05/12/18at 20: 46; Start 05/11/18 at 21:00 Darbepoetin [place] (Aranesp) 60 mcg WEEKLYHS SQ Last administered on 05/11/18at 22 :02; Start 05/11/18 at 21:00 Furosemide (Lasix) 40 mg 1X ONCE IVP Last administered on 05/11/18 20:31; Start 05/11/18 at 18:00; Stop 05/11/18 at 18:01; Status DC Cephalexin HCl (Keflex) 500 mg BID PO Last administered on 05/12/18 08:50; Start 05/11/18 at 21:00; Stop 05/12/18 at 19:16; Status DC Prednisone (Prednisone) 30 mg DAILY PO Last administered on 05/13/18 08:25; Start 05/12/18 at 13:30 Sodium Chloride 1,000 ml @ 75 mls/hr [id number] IV Last administered on 07:05; Start 05/12/18 at 17:45 Cephalexin HCl (Keflex) 500 mg TID PO Last administered on 05/13/18 08:25; Start 05/12/18 at 21:00 Active Scripts Active Duoneb 0.5-3(2.5) Mg/3 Ml (Albuterol/Ipratropium) 3 Ml Ampul.neb 3 Ml NEB 1X 30 Days Prednisone (Prednisone) 10 Mg Tablet 10 Mg PO DAILY 28 Days Please take 4 tabs po daily for 5 days then 3 tabs po daily for 7 days then 2 tabs po daily for 7 days and then continue with 1 tab po daily Metoprolol Succinate ( Xl ) (Metoprolol Succinate) 25 Mg Tab.er.24h 25 Mg PO DAILY 30 Days Reported Cephalexin 500 Mg Capsule 1 Cap PO TID Ferrous Sulfate 325 Mg Tablet 325 Mg PO QODAY Proair Hfa Inhaler (Albuterol Sulfate) 8.5 Gm Hfa.aer.ad 1 Puff INH PRN Q6HRS PRN Hydroxychloroquine Sulfate 200 Mg Tablet 1 Tab PO BID Vitamin D3 (Cholecalciferol (Vitamin D3)) 1,000 Unit Tablet 1,000 Unit PO DAILY Levothyroxine Sodium 50 Mcg Tablet 75 Mcg PO DAILY Aspirin Ec (Aspirin) 81 Mg Tablet.dr 81 Mg PO DAILY Vitals/I & O Vital Sign - Last 24 Hours 05/12/18 05/12/18 05/12/18 05/12/18 11:00 15:00 19:37 20:00 Temp 97.3 98.0 97.3 97.3 98.0 97.3 Pulse 73 72 78 Resp 18 18 16 B/P (MAP) 95/44 (61) 98/48 (65) 108/51 (70) Pulse Ox 98 93 93 O2 Delivery Room Air Room Air Room Air Room Air 05/12/18 05/13/18 05/13/18 05/13/18 23:17 03:53 07:00 08:00 Temp 98.3 98.0 98.2 98.3 98.0 98.2 Pulse 73 77 81 Resp 16 16 18 B/P (MAP) 119/55 (76) 122/55 (77) 128/64 (85) Pulse Ox 98 95 99 O2 Delivery Room Air Room Air Room Air Room Air 05/13/18 08:25 Pulse 81 B/P (MAP) 128/64 Intake and Output 05/12/18 05/12/18 05/13/18 15:00 23:00 07:00 Intake Total 180 ml 680 ml 350 ml Output Total 200 ml Balance 180 ml 480 ml 350 ml ANGLE STEEL MD May 13, 2018 10:57
--- NOTE | 2018-05-13 11:41 | PDOC ---
Renal-Progress Notes Subjective Notes Notes FEELS WELL History of Present Illness Hx of present illness STABLE Vitals Vitals Vital Signs Date Time Temp Pulse Resp B/P (MAP) Pulse Ox O2 Delivery O2 Flow Rate FiO2 05/13/18 11:00 97.9 66 17 122/61 (81) 97 Room Air 97.9 05/12/18 08:00 2.0 Weight Weight [ ] I.O. Intake and Output Intake and Output 05/13/18 06:59 Intake Total 1210 ml Output Total 200 ml Balance 1010 ml Intake Oral 1210 ml Output Urine Total 200 ml # Voids 3 Labs Labs Laboratory Tests Test 05/13/18 04:00 05/13/18 04:05 White Blood Count 4.6 x10^3/uL (4.0-11.0) Red Blood Count 2.77 x10^6/uL (3.50-5.40) Hemoglobin 8.5 g/dL (12.0-15.5) Hematocrit 26.4 % (36.0-47.0) Mean Corpuscular Volume 96 fL (79-100) Mean Corpuscular Hemoglobin 31 pg (25-35) Mean Corpuscular Hemoglobin Concent 32 g/dL (31-37) Red Cell Distribution Width 21.6 % (11.5-14.5) Platelet Count 135 x10^3/uL (140-400) Sodium Level 140 mmol/L (136-145) Potassium Level 3.8 mmol/L (3.5-5.1) Chloride Level 104 mmol/L (98-107) Carbon Dioxide Level 24 mmol/L (21-32) Anion Gap 12 (6-14) Blood Urea Nitrogen 46 mg/dL (7-20) Creatinine 2.3 mg/dL (0.6-1.0) Estimated GFR (Cockcroft-Gault) 24.4 Glucose Level 127 mg/dL (70-99) Calcium Level 8.3 mg/dL (8.5-10.1) Review of Systems Constitutional: yes: weakness, alert, oriented Ears/Nose/Throat: Yes: no symptom reported Eyes: Yes: no symptom reported Pulmonary: Yes dyspnea Cardiovascular: Yes no symptom reported Gastrointestional: Yes: no symptom reported Genitourinary: Yes: no symptom reported Musculoskeletal: Yes: no symptom reported Psychiatric/Neurological: Yes: no symptom reported Endocrine: Yes: no symptom reported Physical Exam General Appearance: no apparent distress Skin: warm Respiratory: decreased breath sounds Heart: S1S2, RRR Abdomen: bowel sounds present Genitourinary: bladder flat Extremities: pulses present Neurology: alert, oriented Musculoskeletal: No pain, Other Assessment Assessment IMP DYSPNEA - PROB MULTIFACTORIAL HEMAL BETTER WITH CR OF 2.3 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
[2018-05-13] MEDS ORDERED: LIDOCAINE 1% Multi-Dose 20 ML VIAL. ONE (11:43)
[2018-05-13] MEDS ORDERED: MIDAZOLAM HCL/PF 2 MG/2 ML VIAL. ONE (12:29)
[2018-05-13] MEDS ORDERED: fentaNYL PF VIAL 100 MCG/2 ML VIAL ONE (12:29)
[2018-05-13] MEDS ORDERED: ADENOSINE 90 MG/30 ML VIAL. IV ONE (12:36)
--- NOTE | 2018-05-13 13:20 | NUR ---
SS following up with discharge planning. Pt is currently on room air. Discharge disposition continues to remain home with resumption orders for [facility] at this time. SS will continue to follow for discharge planning.
[2018-05-13] MEDS ORDERED: MIDAZOLAM HCL/PF 2 MG/2 ML VIAL. IV ONE (13:30)
[2018-05-13] MEDS ORDERED: fentaNYL PF VIAL 100 MCG/2 ML VIAL IV ONE (13:30)
[2018-05-13] MEDS ORDERED: LIDOCAINE 1% Multi-Dose 20 ML VIAL. INJ ONE (13:30)
--- NOTE | 2018-05-13 13:39 | PDOC ---
Subjective: Subjective: I saw her earlier this morning - was feeling okay, awaiting cath. Objective: Objective: Reviewed w/ RN - no GI concerns. Vital Signs: Vital Signs Date Time Temp Pulse Resp B/P (MAP) Pulse Ox O2 Delivery O2 Flow Rate FiO2 05/13/18 11:00 97.9 66 17 122/61 (81) 97 Room Air 97.9 05/12/18 08:00 2.0 Labs: Laboratory Tests Test 05/13/18 04:00 05/13/18 04:05 White Blood Count 4.6 x10^3/uL Red Blood Count 2.77 x10^6/uL Hemoglobin 8.5 g/dL Hematocrit 26.4 % Mean Corpuscular Volume 96 fL Mean Corpuscular Hemoglobin 31 pg Mean Corpuscular Hemoglobin Concent 32 g/dL Red Cell Distribution Width 21.6 % Platelet Count 135 x10^3/uL Sodium Level 140 mmol/L Potassium Level 3.8 mmol/L Chloride Level 104 mmol/L Carbon Dioxide Level 24 mmol/L Anion Gap 12 Blood Urea Nitrogen 46 mg/dL Creatinine 2.3 mg/dL Estimated GFR (Cockcroft-Gault) 24.4 Glucose Level 127 mg/dL Calcium Level 8.3 mg/dL PE: GEN: NAD LUNGS: CTAB HEART: RRR ABD: NABS, S/ND/NT NEURO/PSYCH: A & O 3 A/P: Fatigue, dyspnea CKD Chronic anemia - ACD, possible AVMs - past colonoscopies and EGDs normal -- Continue iron, await cath. Add PPI. ISAMAR STEWART May 13, 2018 13:39
[2018-05-13] MEDS ORDERED: ADENOSINE 90 MG in IV NORMAL SALINE 50ML 90 ML IV ONE (13:45)
--- NOTE | 2018-05-13 15:57 | CARD ---
MR#: [id number] Date of Study: 05/13/2018 Ordering Physician: MISHEL ESPINOSA, Referring Physician: ANGLE STEEL Tech: RT Jose (R) APPROVED REPORT Procedures Right heart catheterization Adenosine infusion The patient is an 82-year-old female who was admitted with shortness of breath. On initial echocardio gram patient's right-sided pressures were significantly elevated. In this setting we recommended righ t heart catheterization with an adenosine infusion to determine the extent of the patient's pulmonary hypertension and if it was responsive to adenosine. The patient has had difficulty to shortness of b reath in the setting of right heart catheterization was recommended with infusion of adenosine. The r isks and benefits of the procedure were discussed with the patient. She agreed to proceed. After informed consent was obtained the patient was brought to the catheterization lab. The area of t right femoral vein was prepared usual manner with Betadine, sterile draping and local anesthetic. An 18-gauge needle was used to enter the right femoral vein, a wire placed and a 8 [place] sheath plac ed over the wire. A [place]-Renita catheter was initially through the right heart and a wedge pressure was obtained. Following this a pulmonary artery pressure was obtained. It was not severely elevated but in this setting we did perform an adenosine infusion test with a peak infusion of 150 mcg/kg/m of ad enosine. Pulmonary pressures at this dose were measured. The adenosine was discontinued. On pullback right ventricular pressure and a right atrial pressure was obtained. The Morrison-Renita catheter was remov ed from the patient. The sheath was removed from the patient. Hemostasis was obtained via direct pres sure. The patient was moved to the holding area in stable condition. Pressures Pulmonary capillary wedge pressure of 12/9/8. PA pressure pre-infusion of 36/14/21 PA pressure postinfusion of 32/12/20 RV pressure 36/6/8 RA pressure 10/9/8. <Conclusion> Normal wedge pressures. Mildly elevated PA pressure with minimum response to IV adenosine. Signed by : Javier Faye MD Electronically Approved : 05/13/2018 15:56:59
[2018-05-13] MEDS: PANTOPRAZOLE 40 MG TABLET.DR. PO SCH (17:03)
[2018-05-13] MEDS: ATORVASTATIN CALCIUM 20 MG TABLET PO SCH (21:24)
[2018-05-14 03:30] VITALS: BP 120/60
[2018-05-14 05:53] LABS: BASO % 0 % (0-3); EOS % 0 % (0-3); HEMATOCRIT 28.7 % (36.0-47.0); HEMOGLOBIN 9.1 g/dL (12.0-15.5); LYMPH # 0.7 x10^3/uL (1.0-4.8); LYMPH % 12 % (24-48); MEAN CORPUSCULAR HEMOGLOBIN 30 pg (25-35); MEAN CORPUSCULAR HGB CONC 32 g/dL (31-37); MEAN CORPUSCULAR VOLUME 96 fL (79-100); MONO # 0.3 x10^3/uL (0.0-1.1); MONO % 5 % (0-9); NEUT % 83 % (31-73); PLATELET COUNT 140 x10^3/uL (140-400); RED CELL DISTRIBUTION WIDTH 20.8 % (11.5-14.5)
[2018-05-14 06:10] LABS: CALCIUM 7.8 mg/dL (8.5-10.1); CREATININE 1.8 mg/dL (0.6-1.0); GFR 32.4; POTASSIUM 3.8 mmol/L (3.5-5.1)
[2018-05-14] MEDS: LEVOTHYROXINE 75 MCG TABLET PO SCH (06:30)
[2018-05-14 07:00] VITALS: BP 133/61
[2018-05-14] MEDS: CHOLECALCIFEROL (VITAMIN D3) 1,000 UNIT TABLET PO SCH (08:12)
[2018-05-14] MEDS: PANTOPRAZOLE 40 MG TABLET.DR. PO SCH (08:12)
[2018-05-14] MEDS: CEPHALEXIN 250 MG CAPSULE. PO SCH ×2 (08:12→14:25)
[2018-05-14] MEDS: predniSONE 10 MG TABLET PO SCH (08:12)
[2018-05-14] MEDS: ASPIRIN ENTERIC COATED 81 MG TABLET.DR. PO SCH (08:12)
[2018-05-14] MEDS: FERROUS SULFATE 325 MG TABLET. PO SCH (08:12)
[2018-05-14] MEDS: METOPROLOL SUCC 24HR ER 25 MG TAB.ER.24H. PO SCH (08:12)
--- NOTE | 2018-05-14 08:12 | RAD ---
RENAL COMPLETE BILATERAL History: Acute kidney injury Comparison: None. Findings: Multiple sonographic images of the kidneys, urinary bladder, and retroperitoneal structures are submitted. Right kidney measured 8.2 x 4.6 x 4 cm. Left kidney measured 8.6 x 4.5 x 4.8 cm. There is no hydronephrosis of either kidney. There is cortical thinning of the kidneys bilaterally greater on the right. Visualized abdominal aortic caliber is within normal limits up to 2 cm mid segment, proximally not seen due to bowel gas. There is segmental visualization of the inferior vena cava. Urinary bladder morphology is within normal limits, ureteral jets not demonstrated during exam. Impression: 1. There is thinning of the cortex of the bilateral kidneys greater on the right, no hydronephrosis of either kidney. Electronically signed by: James Escobedo MD (05/14/2018 8:08 AM) [facility]
[2018-05-14] MEDS: IV NORMAL SALINE 1000ML BAG 1,000 ML IV SCH (09:45)
[2018-05-14] MEDS ORDERED: BUDE10.22 IH (10:13)
[2018-05-14] MEDS ORDERED: PRED-220 PO (10:13)
[2018-05-14] MEDS ORDERED: FLUT9.9S NS (10:25)
--- NOTE | 2018-05-14 10:26 | SNU/HH DC ---
DISCHARGE WITH HOME HEALTH DISCHARGE INFORMATION: Discharge Date: May 14, 2018 Final Diagnosis: Problems Medical Problems: (1) Acute electrocardiogram changes Status: Acute (2) Dyspnea Status: Acute Condition on Discharge: Stable CODE STATUS: Code Status: Full HOME HEALTH: Face to Face: I certify this patient is under my care and that I, or a nurse practitioner or physician's curriculum assistant principal working with me, had a face to face encounter that meets the physician face to face encounter requirements with this patient on 05/14 Physical Therapy For: Evalulation/Treatment Occupational Therapy For: Evaluation/Treatment POST DISCHARGE ORDERS: Activity Instructions for Disc: Activity as tolerated Weight Bearing Status after Di: As tolerated DIET AFTER DISCHARGE: Cardiac Wound/Incision Care: No wound care needed FOLLOW-UP: Follow up with: Dr. Pressley and Dr. Schofield TREATMENT/EQUIPMENT ORDERS: Adaptive Equipment Issued: Four wheeled walker CERTIFICATION STATEMENT: Certification Statement: Certification Statement: Based on the above finding, I certify that this patient is confined to the home and needs intermittent prison care, physical therapy and/or speech therapy, or continues to need occupational therapy.~ This patient is under my care, and I have initiated the establishment of the plan of care.~ This patient will be followed by myself or a community physician who will periodically review the plan of care. Home Meds Active Scripts Fluticasone Propionate (Flonase Allergy Relief) 9.9 Ml [place].susp, 2 SPRAYS NS DAILY for nasal congestion, #1 BOTTLE Prov:REBECCA HUANG MD 05/14/18 Budesonide/Formoterol Fumarate (SYMBICORT 80-4.5 MCG INHALER) 10.2 Gm Hfa.aer.ad , 1 PUFF IH BID for lung inflammation, #1 INHALER Prov:REBECCA HUANG MD 05/14/18 Prednisone (PREDNISONE ) 10 Mg Tablet, 10 MG PO UD for lung inflammation, #30 TAB 0 Refills take 3 tablets by mouth daily for 8 days, then take 2 tablets by mouth daily for 2 days, then take 1 tablets by mouth daily for 2 days, then stop. Prov:REBECCA HUANG MD 05/14/18 Ipratropium/Albuterol Sulfate (DUONEB 0.5-3(2.5) MG/3 ML) 3 Ml Ampul.neb, 3 ML NEB 1X for COPD for 30 Days, #60 EACH Prov:EDI العراقي MD 04/07/18 Metoprolol Succinate (METOPROLOL SUCCINATE ( XL )) 25 Mg Tab.er.24h, 25 MG PO DAILY for Coronary Artery Disease for 30 Days, #30 TAB.SR 2 Refills Prov:CYNTHIA VUONG CHIEF LOCK TENDER OPERATOR 04/06/18 Reported Medications Cephalexin (CEPHALEXIN) 500 Mg Capsule, 1 CAP PO TID for leg infection, #30 CAP 05/11/18 Ferrous Sulfate (FERROUS SULFATE) 325 Mg Tablet, 325 MG PO QODAY for IRON SUPPLEMENT , TAB 04/27/18 Albuterol Sulfate (PROAIR HFA INHALER) 8.5 Gm Hfa.aer.ad, 1 PUFF INH PRN Q6HRS PRN for SHORTNESS OF BREATH, INHALER 0 Refills 04/03/18 Hydroxychloroquine Sulfate (HYDROXYCHLOROQUINE SULFATE) 200 Mg Tablet, 1 TAB PO BID for h, #180 TAB 1 Refill 04/03/18 Cholecalciferol (Vitamin D3) (VITAMIN D3) 1,000 Unit Tablet, 1000 UNIT PO DAILY 02/19/15 Levothyroxine Sodium (LEVOTHYROXINE SODIUM) 50 Mcg Tablet, 75 MCG PO DAILY 01/24/13 Aspirin (ASPIRIN EC) 81 Mg Tablet.dr, 81 MG PO DAILY 01/24/13 Discontinued Scripts Prednisone (PREDNISONE ) 10 Mg Tablet, 10 MG PO DAILY for ILD for 28 Days, # 62 TAB 0 Refills Please take 4 tabs po daily for 5 days then 3 tabs po daily for 7 days then 2 tabs po daily for 7 days and then continue with 1 tab po daily Prov:EDI العراقي MD 04/07/18 REBECCA HUANG MD May 14, 2018 10:26
[2018-05-14] MEDS ORDERED: FLUTICASONE 50MCG/NASAL SPRAY 16GM BOTTLE. NS SCH (10:30)
--- NOTE | 2018-05-14 10:52 | PDOC ---
G I PROGRESS NOTE Subjective No complaints. Hopes to go home today. Objective Discharge order on chart. Physical Exam Lungs clear. RRR Abdomen soft, not tender nor distended. Review of Relevant I have reviewed the following items kade (where applicable) has been applied. Labs Laboratory Tests Test 05/13/18 04:00 05/13/18 04:05 05/14/18 05:00 White Blood Count 4.6 x10^3/uL (4.0-11.0) 6.0 x10^3/uL (4.0-11.0) Red Blood Count 2.77 x10^6/uL (3.50-5.40) 3.00 x10^6/uL (3.50-5.40) Hemoglobin 8.5 g/dL (12.0-15.5) 9.1 g/dL (12.0-15.5) Hematocrit 26.4 % (36.0-47.0) 28.7 % (36.0-47.0) Mean Corpuscular Volume 96 fL (79-100) 96 fL (79-100) Mean Corpuscular Hemoglobin 31 pg (25-35) 30 pg (25-35) Mean Corpuscular Hemoglobin Concent 32 g/dL (31-37) 32 g/dL (31-37) Red Cell Distribution Width 21.6 % (11.5-14.5) 20.8 % (11.5-14.5) Platelet Count 135 x10^3/uL (140-400) 140 x10^3/uL (140-400) Sodium Level 140 mmol/L (136-145) 146 mmol/L (136-145) Potassium Level 3.8 mmol/L (3.5-5.1) 3.8 mmol/L (3.5-5.1) Chloride Level 104 mmol/L (98-107) 109 mmol/L (98-107) Carbon Dioxide Level 24 mmol/L (21-32) 25 mmol/L (21-32) Anion Gap 12 (6-14) 12 (6-14) Blood Urea Nitrogen 46 mg/dL (7-20) 38 mg/dL (7-20) Creatinine 2.3 mg/dL (0.6-1.0) 1.8 mg/dL (0.6-1.0) Estimated GFR (Cockcroft-Gault) 24.4 32.4 Glucose Level 127 mg/dL (70-99) 129 mg/dL (70-99) Calcium Level 8.3 mg/dL (8.5-10.1) 7.8 mg/dL (8.5-10.1) Neutrophils (%) (Auto) 83 % (31-73) Lymphocytes (%) (Auto) 12 % (24-48) Monocytes (%) (Auto) 5 % (0-9) Eosinophils (%) (Auto) 0 % (0-3) Basophils (%) (Auto) 0 % (0-3) Neutrophils # (Auto) 5.0 x10^3uL (1.8-7.7) Lymphocytes # (Auto) 0.7 x10^3/uL (1.0-4.8) Monocytes # (Auto) 0.3 x10^3/uL (0.0-1.1) Eosinophils # (Auto) 0.0 x10^3/uL (0.0-0.7) Basophils # (Auto) 0.0 x10^3/uL (0.0-0.2) Laboratory Tests Test 05/14/18 05:00 White Blood Count 6.0 x10^3/uL (4.0-11.0) Red Blood Count 3.00 x10^6/uL (3.50-5.40) Hemoglobin 9.1 g/dL (12.0-15.5) Hematocrit 28.7 % (36.0-47.0) Mean Corpuscular Volume 96 fL (79-100) Mean Corpuscular Hemoglobin 30 pg (25-35) Mean Corpuscular Hemoglobin Concent 32 g/dL (31-37) Red Cell Distribution Width 20.8 % (11.5-14.5) Platelet Count 140 x10^3/uL (140-400) Neutrophils (%) (Auto) 83 % (31-73) Lymphocytes (%) (Auto) 12 % (24-48) Monocytes (%) (Auto) 5 % (0-9) Eosinophils (%) (Auto) 0 % (0-3) Basophils (%) (Auto) 0 % (0-3) Neutrophils # (Auto) 5.0 x10^3uL (1.8-7.7) Lymphocytes # (Auto) 0.7 x10^3/uL (1.0-4.8) Monocytes # (Auto) 0.3 x10^3/uL (0.0-1.1) Eosinophils # (Auto) 0.0 x10^3/uL (0.0-0.7) Basophils # (Auto) 0.0 x10^3/uL (0.0-0.2) Sodium Level 146 mmol/L (136-145) Potassium Level 3.8 mmol/L (3.5-5.1) Chloride Level 109 mmol/L (98-107) Carbon Dioxide Level 25 mmol/L (21-32) Anion Gap 12 (6-14) Blood Urea Nitrogen 38 mg/dL (7-20) Creatinine 1.8 mg/dL (0.6-1.0) Estimated GFR (Cockcroft-Gault) 32.4 Glucose Level 129 mg/dL (70-99) Calcium Level 7.8 mg/dL (8.5-10.1) Vitals/I & O Vital Sign - Last 24 Hours 05/13/18 05/13/18 05/13/18 05/13/18 11:00 13:47 13:53 14:00 Temp 97.9 97.9 Pulse 66 65 66 Resp 17 12 21 B/P (MAP) 122/61 (81) 125/51 (75) Pulse Ox 97 100 100 O2 Delivery Room Air Nasal Cannula Nasal Cannula O2 Flow Rate 2.0 2.0 05/13/18 05/13/18 05/13/18 05/13/18 14:15 14:30 14:45 14:57 Temp 98.1 98.1 Pulse 67 64 70 72 Resp 18 B/P (MAP) 115/49 (71) 121/60 (80) 115/58 (77) 115/58 (77) Pulse Ox 99 99 100 100 O2 Delivery Room Air Room Air Room Air Room Air 05/13/18 05/13/18 05/13/18 05/13/18 15:15 15:45 16:45 19:37 Temp 97.7 97.7 Pulse 68 66 64 66 Resp 21 B/P (MAP) 110/57 (74) 106/56 (73) 140/72 (94) 126/70 (88) Pulse Ox 97 100 100 96 O2 Delivery Room Air Room Air Room Air Room Air 05/13/18 05/13/18 05/14/18 05/14/18 19:37 23:30 03:30 07:00 Temp 97.7 97.4 97.4 97.7 97.4 97.4 Pulse 72 78 66 Resp 22 20 20 B/P (MAP) 139/57 (84) 120/60 (80) 133/61 (85) Pulse Ox 95 98 99 O2 Delivery Room Air Room Air Room Air Room Air O2 Flow Rate 2.0 05/14/18 05/14/18 07:31 08:12 Pulse 78 B/P (MAP) 133/61 O2 Delivery Room Air Intake and Output 05/13/18 05/13/18 05/14/18 15:00 23:00 07:00 Intake Total 1700 ml Output Total 250 ml 300 ml Balance -250 ml 1400 ml Problem List Problems Medical Problems: (1) Acute electrocardiogram changes Status: Acute (2) Dyspnea Status: Acute Assessment Chronic ANASTASIYA/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 Plan of Care Note No objections to discharge. Chronic PO iron, at least bid, tid if can tolerate. MARK FINNEGAN MD May 14, 2018 10:52
[2018-05-14 11:00] VITALS: BP 147/45
--- NOTE | 2018-05-14 11:08 | NUR ---
patient walked with pulse oximetry. patients O2 stayed above 95% during the whole duration of walk.
--- NOTE | 2018-05-14 11:34 | PDOC ---
PULMONARY PROGRESS NOTES Subjective PT FEELS BETTER TODAY AFTER TRANSFUSION Vitals Vital Signs Date Time Temp Pulse Resp B/P (MAP) Pulse Ox O2 Delivery O2 Flow Rate FiO2 05/14/18 11:00 97.4 66 16 147/45 (79) 99 Room Air 2.0 97.4 ROS: No Nausea, No Chest Pain, No Abdominal Pain, No Increase Cough General: Alert, No acute distress Lungs: Clear Cardiovascular: S1, S2 Abdomen: Soft, Non-tender Neuro Exam: Alert Extremities: Other Skin: Warm Labs Laboratory Tests Test 05/13/18 04:00 05/13/18 04:05 05/14/18 05:00 White Blood Count 4.6 x10^3/uL (4.0-11.0) 6.0 x10^3/uL (4.0-11.0) Red Blood Count 2.77 x10^6/uL (3.50-5.40) 3.00 x10^6/uL (3.50-5.40) Hemoglobin 8.5 g/dL (12.0-15.5) 9.1 g/dL (12.0-15.5) Hematocrit 26.4 % (36.0-47.0) 28.7 % (36.0-47.0) Mean Corpuscular Volume 96 fL (79-100) 96 fL (79-100) Mean Corpuscular Hemoglobin 31 pg (25-35) 30 pg (25-35) Mean Corpuscular Hemoglobin Concent 32 g/dL (31-37) 32 g/dL (31-37) Red Cell Distribution Width 21.6 % (11.5-14.5) 20.8 % (11.5-14.5) Platelet Count 135 x10^3/uL (140-400) 140 x10^3/uL (140-400) Sodium Level 140 mmol/L (136-145) 146 mmol/L (136-145) Potassium Level 3.8 mmol/L (3.5-5.1) 3.8 mmol/L (3.5-5.1) Chloride Level 104 mmol/L (98-107) 109 mmol/L (98-107) Carbon Dioxide Level 24 mmol/L (21-32) 25 mmol/L (21-32) Anion Gap 12 (6-14) 12 (6-14) Blood Urea Nitrogen 46 mg/dL (7-20) 38 mg/dL (7-20) Creatinine 2.3 mg/dL (0.6-1.0) 1.8 mg/dL (0.6-1.0) Estimated GFR (Cockcroft-Gault) 24.4 32.4 Glucose Level 127 mg/dL (70-99) 129 mg/dL (70-99) Calcium Level 8.3 mg/dL (8.5-10.1) 7.8 mg/dL (8.5-10.1) Neutrophils (%) (Auto) 83 % (31-73) Lymphocytes (%) (Auto) 12 % (24-48) Monocytes (%) (Auto) 5 % (0-9) Eosinophils (%) (Auto) 0 % (0-3) Basophils (%) (Auto) 0 % (0-3) Neutrophils # (Auto) 5.0 x10^3uL (1.8-7.7) Lymphocytes # (Auto) 0.7 x10^3/uL (1.0-4.8) Monocytes # (Auto) 0.3 x10^3/uL (0.0-1.1) Eosinophils # (Auto) 0.0 x10^3/uL (0.0-0.7) Basophils # (Auto) 0.0 x10^3/uL (0.0-0.2) Laboratory Tests Test 05/14/18 05:00 White Blood Count 6.0 x10^3/uL (4.0-11.0) Red Blood Count 3.00 x10^6/uL (3.50-5.40) Hemoglobin 9.1 g/dL (12.0-15.5) Hematocrit 28.7 % (36.0-47.0) Mean Corpuscular Volume 96 fL (79-100) Mean Corpuscular Hemoglobin 30 pg (25-35) Mean Corpuscular Hemoglobin Concent 32 g/dL (31-37) Red Cell Distribution Width 20.8 % (11.5-14.5) Platelet Count 140 x10^3/uL (140-400) Neutrophils (%) (Auto) 83 % (31-73) Lymphocytes (%) (Auto) 12 % (24-48) Monocytes (%) (Auto) 5 % (0-9) Eosinophils (%) (Auto) 0 % (0-3) Basophils (%) (Auto) 0 % (0-3) Neutrophils # (Auto) 5.0 x10^3uL (1.8-7.7) Lymphocytes # (Auto) 0.7 x10^3/uL (1.0-4.8) Monocytes # (Auto) 0.3 x10^3/uL (0.0-1.1) Eosinophils # (Auto) 0.0 x10^3/uL (0.0-0.7) Basophils # (Auto) 0.0 x10^3/uL (0.0-0.2) Sodium Level 146 mmol/L (136-145) Potassium Level 3.8 mmol/L (3.5-5.1) Chloride Level 109 mmol/L (98-107) Carbon Dioxide Level 25 mmol/L (21-32) Anion Gap 12 (6-14) Blood Urea Nitrogen 38 mg/dL (7-20) Creatinine 1.8 mg/dL (0.6-1.0) Estimated GFR (Cockcroft-Gault) 32.4 Glucose Level 129 mg/dL (70-99) Calcium Level 7.8 mg/dL (8.5-10.1) Medications Active Scripts Medications Dose Route/Sig Max Daily Dose Days Date Category Dose Instructions Ferrous Sulfate 325 Mg Tablet 325 Mg PO QODAY 04/27/18 Reported Duoneb 0.5-3(2.5) Mg/3 Ml (Albuterol/Ipratropium) 3 Ml Ampul.neb 3 Ml NEB 1X 30 04/07/18 Rx Prednisone (Prednisone) 10 Mg Tablet 10 Mg PO DAILY 28 04/07/18 Rx Please take 4 tabs po daily for 5 days then 3 tabs po daily for 7 days then 2 tabs po daily for 7 days and then continue with 1 tab po daily Metoprolol Succinate ( Xl ) (Metoprolol Succinate) 25 Mg Tab.er.24h 25 Mg PO DAILY 30 04/06/18 Rx Proair Hfa Inhaler (Albuterol Sulfate) 8.5 Gm Hfa.aer.ad 1 Puff INH PRN Q6HRS PRN 04/03/18 Reported Hydroxychloroquine Sulfate 200 Mg Tablet 1 Tab PO BID 04/03/18 Reported Vitamin D3 (Cholecalciferol (Vitamin D3)) 1,000 Unit Tablet 1,000 Unit PO DAILY 02/19/15 Reported Levothyroxine Sodium 50 Mcg Tablet 75 Mcg PO DAILY 01/24/13 Reported Aspirin Ec (Aspirin) 81 Mg Tablet.dr 81 Mg PO DAILY 01/24/13 Reported Impression . IMPRESSION: 1. Persistent bilateral pulmonary infiltrates, differential includes interstitial lung disease and autoimmune related interstitial lung disease, possible congestive heart failure, doubt new infection. 2. Progressive dyspnea, multifactorial secondary to chronic anemia, bilateral pulmonary infiltrates and weakness. 3. Severe secondary pulmonary hypertension. 4. Aortic stenosis. 5. Acute on chronic renal insufficiency. 6. Coronary artery disease. Plan . D/C TODAY CATH REPORT NOTED WILL SET UP SLEEP S OUT PT EVELIN GONZALEZ MD May 14, 2018 11:33
--- NOTE | 2018-05-14 15:40 | PDOC3 ---
Discharge Summary Visit Information Date of Admission: May 10, 2018 Date of Discharge: May 14, 2018 Admitting Diagnosis: short of breath Final Diagnosis 1. Persistent bilateral pulmonary infiltrates, possible interstitial lung disease 2. Progressive dyspnea, multifactorial secondary to chronic anemia, 3. Severe secondary pulmonary hypertension due to moderate Aortic stenosis. 4. Acute renal failure on CKD 3, with anemia 5 CAD Problems Medical Problems: (1) Acute electrocardiogram changes Status: Acute (2) Dyspnea Status: Acute Brief Hospital Course Allergies Allergies Coded Allergies Type Severity Reaction Last Updated Verified No Known Drug Allergies 05/10/18 No Vital Signs Vital Signs Date Time Temp Pulse Resp B/P (MAP) Pulse Ox O2 Delivery O2 Flow Rate FiO2 05/14/18 11:00 97.4 66 16 147/45 (79) 99 Room Air 2.0 97.4 Lab Results Laboratory Tests Test 05/13/18 04:00 05/13/18 04:05 05/14/18 05:00 White Blood Count 4.6 x10^3/uL (4.0-11.0) 6.0 x10^3/uL (4.0-11.0) Red Blood Count 2.77 x10^6/uL (3.50-5.40) 3.00 x10^6/uL (3.50-5.40) Hemoglobin 8.5 g/dL (12.0-15.5) 9.1 g/dL (12.0-15.5) Hematocrit 26.4 % (36.0-47.0) 28.7 % (36.0-47.0) Mean Corpuscular Volume 96 fL (79-100) 96 fL (79-100) Mean Corpuscular Hemoglobin 31 pg (25-35) 30 pg (25-35) Mean Corpuscular Hemoglobin Concent 32 g/dL (31-37) 32 g/dL (31-37) Red Cell Distribution Width 21.6 % (11.5-14.5) 20.8 % (11.5-14.5) Platelet Count 135 x10^3/uL (140-400) 140 x10^3/uL (140-400) Sodium Level 140 mmol/L (136-145) 146 mmol/L (136-145) Potassium Level 3.8 mmol/L (3.5-5.1) 3.8 mmol/L (3.5-5.1) Chloride Level 104 mmol/L (98-107) 109 mmol/L (98-107) Carbon Dioxide Level 24 mmol/L (21-32) 25 mmol/L (21-32) Anion Gap 12 (6-14) 12 (6-14) Blood Urea Nitrogen 46 mg/dL (7-20) 38 mg/dL (7-20) Creatinine 2.3 mg/dL (0.6-1.0) 1.8 mg/dL (0.6-1.0) Estimated GFR (Cockcroft-Gault) 24.4 32.4 Glucose Level 127 mg/dL (70-99) 129 mg/dL (70-99) Calcium Level 8.3 mg/dL (8.5-10.1) 7.8 mg/dL (8.5-10.1) Neutrophils (%) (Auto) 83 % (31-73) Lymphocytes (%) (Auto) 12 % (24-48) Monocytes (%) (Auto) 5 % (0-9) Eosinophils (%) (Auto) 0 % (0-3) Basophils (%) (Auto) 0 % (0-3) Neutrophils # (Auto) 5.0 x10^3uL (1.8-7.7) Lymphocytes # (Auto) 0.7 x10^3/uL (1.0-4.8) Monocytes # (Auto) 0.3 x10^3/uL (0.0-1.1) Eosinophils # (Auto) 0.0 x10^3/uL (0.0-0.7) Basophils # (Auto) 0.0 x10^3/uL (0.0-0.2) Laboratory Tests Test 05/14/18 05:00 White Blood Count 6.0 x10^3/uL (4.0-11.0) Red Blood Count 3.00 x10^6/uL (3.50-5.40) Hemoglobin 9.1 g/dL (12.0-15.5) Hematocrit 28.7 % (36.0-47.0) Mean Corpuscular Volume 96 fL (79-100) Mean Corpuscular Hemoglobin 30 pg (25-35) Mean Corpuscular Hemoglobin Concent 32 g/dL (31-37) Red Cell Distribution Width 20.8 % (11.5-14.5) Platelet Count 140 x10^3/uL (140-400) Neutrophils (%) (Auto) 83 % (31-73) Lymphocytes (%) (Auto) 12 % (24-48) Monocytes (%) (Auto) 5 % (0-9) Eosinophils (%) (Auto) 0 % (0-3) Basophils (%) (Auto) 0 % (0-3) Neutrophils # (Auto) 5.0 x10^3uL (1.8-7.7) Lymphocytes # (Auto) 0.7 x10^3/uL (1.0-4.8) Monocytes # (Auto) 0.3 x10^3/uL (0.0-1.1) Eosinophils # (Auto) 0.0 x10^3/uL (0.0-0.7) Basophils # (Auto) 0.0 x10^3/uL (0.0-0.2) Sodium Level 146 mmol/L (136-145) Potassium Level 3.8 mmol/L (3.5-5.1) Chloride Level 109 mmol/L (98-107) Carbon Dioxide Level 25 mmol/L (21-32) Anion Gap 12 (6-14) Blood Urea Nitrogen 38 mg/dL (7-20) Creatinine 1.8 mg/dL (0.6-1.0) Estimated GFR (Cockcroft-Gault) 32.4 Glucose Level 129 mg/dL (70-99) Calcium Level 7.8 mg/dL (8.5-10.1) Brief Hospital Course Ms. Hamm is a 82 old [sex] who presented with [ ] Discharge Information Condition at Discharge: Improved Follow Up: Weeks Disposition/Orders: D/C to Home w/ HH (as before) Scheduled Aspirin (Aspirin Ec) 81 Mg Tablet., 81 MG PO DAILY, (Reported) Entered as Reported by: MILDRED LATHAM on 01/24/13 1014 Last Action: Continued on 05/10/182012 by ANGLE STEEL MD Budesonide/Formoterol Fumarate (Symbicort 80-4.5 Mcg Inhaler) 10.2 Gm Hfa.aer.ad , 1 PUFF IH BID for lung inflammation, #1 Prescribed by: REBECCA HUANG on 05/14/18 1013 Cephalexin (Cephalexin) 500 Mg Capsule, 1 CAP PO TID for leg infection, #30 ( Reported) Entered as Reported by: RYANN SILVA RN on 05/11/18 1642 Last Action: Converted on 05/11/181652 by RYANN SILVA RN Cholecalciferol (Vitamin D3) (Vitamin D3) 1,000 Unit Tablet, 1,000 UNIT PO DAILY , (Reported) Entered as Reported by: ALEX CARNEY on 02/19/15 1408 Last Action: Continued on 05/10/182012 by ANGLE STEEL MD Ferrous Sulfate (Ferrous Sulfate) 325 Mg Tablet, 325 MG PO QODAY for IRON SUPPLEMENT , (Reported) Entered as Reported by: ALEX CARNEY on 04/27/18 1409 Last Action: Continued on 05/10/182012 by ANGLE STEEL MD Fluticasone Propionate (Flonase Allergy Relief) 9.9 Ml [place].susp, 2 SPRAYS NS DAILY for nasal congestion, #1 Prescribed by: REBECCA HUANG on 05/14/18 1025 Hydroxychloroquine Sulfate (Hydroxychloroquine Sulfate) 200 Mg Tablet, 1 TAB PO BID for h, #180 Ref 1 (Reported) Entered as Reported by: SEE GIANG on 04/03/18 1348 Last Action: HELD on 05/11/181652 by RYANN SILVA RN Ipratropium/Albuterol Sulfate (Duoneb 0.5-3(2.5) Mg/3 Ml) 3 Ml Ampul.neb, 3 ML NEB 1X for COPD for 30 Days, #60 Prescribed by: EDI العراقي MD on 04/07/18 1052 Last Action: Continued on 05/10/182012 by ANGLE STEEL MD Levothyroxine Sodium (Levothyroxine Sodium) 50 Mcg Tablet, 75 MCG PO DAILY, ( Reported) Entered as Reported by: MILDRED LATHAM on 01/24/13 1021 Last Action: Converted on 05/10/182012 by ANGLE STEEL MD Metoprolol Succinate (Metoprolol Succinate ( Xl )) 25 Mg Tab.er.24h, 25 MG PO DAILY for Coronary Artery Disease for 30 Days, #30 Ref 2 Prescribed by: CYNTHIA VUONG APRN on 04/06/18 1212 Last Action: Continued on 05/10/182012 by ANGLE STEEL MD Prednisone (Prednisone ) 10 Mg Tablet, 10 MG PO UD for lung inflammation, #30 Ref 0 take 3 tablets by mouth daily for 8 days, then take 2 tablets by mouth daily for 2 days, then take 1 tablets by mouth daily for 2 days, then stop. Prescribed by: REBECCA HUANG on 05/14/18 1013 Scheduled PRN Albuterol Sulfate (Proair Hfa Inhaler) 8.5 Gm Hfa.aer.ad, 1 PUFF INH PRN Q6HRS PRN for SHORTNESS OF BREATH, Ref 0 (Reported) Entered as Reported by: SEE GIANG on 04/03/18 1348 Last Action: Continued on 05/10/182012 by ANGLE STEEL MD Discontinued Medications Prednisone (Prednisone ) 10 Mg Tablet, 10 MG PO DAILY for ILD for 28 Days, # 62 Ref 0 Please take 4 tabs po daily for 5 days then 3 tabs po daily for 7 days then 2 tabs po daily for 7 days and then continue with 1 tab po daily Prescribed by: EDI العراقي MD on 04/07/18 1044 Last Action: HELD on 05/11/18 1653 by RYANN SILVA RN Patient Instructions Patient Instructions > 35 minutes, face to face Right heart cath findings, Normal wedge pressures. Mildly elevated PA pressure with minimum response to IV adenosine. REBECCA HUANG MD May 14, 2018 15:40
--- NOTE | 2018-05-14 15:59 | NUR ---
PATIENTS IV OUT AND MONITOR OFF. PATIENT STABLE AT TIME OF DISCHARGE. DISCHARGE INSTRUCTIONS DISCUSSED WITH PATIENT AND PATIENTS DAUGHTER. PRESCRIPTIONS GIVEN TO PATIENT. POST CATH INSTRUCTIONS GIVEN TO PATIENT. PATIENT HAS NO FURTHER QUESTIONS AT THIS TIME. PATIENT ESCORTED TO DAUGHTERS PERSONAL VEHICLE PER WHEELCHAIR BY BARRINGTON BARROS.
== END 2018-05-14 16:03 | disposition home health service (06) | DRG 286 ==
LOC: ER 14:34 → 2 SOUTH 16:15
PROVIDERS: ADMIT Family Medicine; ATTEND Family Medicine
PROC: 30233N1 Transfusion of Nonautologous Red Blood Cells into Peripheral Vein, Percutaneous Approach (ICD-10-PCS; 2018-05-11)
PROC: 4A023N6 Measurement of Cardiac Sampling and Pressure, Right Heart, Percutaneous Approach (ICD-10-PCS; principal; 2018-05-13)
DX: I13.0 Hypertensive heart and chronic kidney disease with heart failure and stage 1 through stage 4 chronic kidney disease, or unspecified chronic kidney disease (principal); N17.0 Acute kidney failure with tubular necrosis; I50.33 Acute on chronic diastolic (congestive) heart failure; J96.21 Acute and chronic respiratory failure with hypoxia; J84.9 Interstitial pulmonary disease, unspecified; K21.9 Gastro-esophageal reflux disease without esophagitis; E03.9 Hypothyroidism, unspecified; K74.60 Unspecified cirrhosis of liver; I27.29 Other secondary pulmonary hypertension; I25.10 Atherosclerotic heart disease of native coronary artery without angina pectoris; M06.9 Rheumatoid arthritis, unspecified; D63.1 Anemia in chronic kidney disease; M19.90 Unspecified osteoarthritis, unspecified site; I08.3 Combined rheumatic disorders of mitral, aortic and tricuspid valves; Z90.710 Acquired absence of both cervix and uterus; Z90.49 Acquired absence of other specified parts of digestive tract; Z82.49 Family history of ischemic heart disease and other diseases of the circulatory system; Z83.3 Family history of diabetes mellitus; Z98.84 Bariatric surgery status; Z87.891 Personal history of nicotine dependence; N18.3 Chronic kidney disease, stage 3 (moderate)
CPT/HCPCS: 36415; 71045; 76770; 78582; 80048; 80053; 81001; 82274; 83540; 83550; 83880; 84484; 85007; 85025; 85027; 85610; 85730; 86850; 86900; 86901; 86920; 93005; 93451; 94760; 96374; 99152; 99153; A9540; A9558; C1769; C1773; C1892; J0153; J0881; J1644; J1940; J2250; J3010; J7030; J7512; P9016; 99285-25

== ENCOUNTER → 2018-05-16 | Outpatient (CLI) | payer BC ==
[2018-05-14 11:00] VITALS: BP 147/45
[~2018-05-16] MED LIST changes: +BUDE10.22 IH; +CEPH500C PO; +FLUT9.9S NS; +ROPI0.5T PO
--- NOTE | 2018-05-16 11:09 | RAD ---
Examination: CT chest with contrast HISTORY: History of interstitial disease. COMPARISON: 04/04/2018 TECHNIQUE: Axial CT images of the chest were performed without contrast. Coronal and sagittal reformats are performed Exposure: One or more of the following individualized dose reduction techniques were utilized for this examination: 1. Automated exposure control 2. Adjustment of the mA and/or kV according to patient size 3. Use of iterative reconstruction technique FINDINGS: The visualized thyroid gland grossly appears unremarkable. The central airways are patent. Diffuse coronary artery calcifications identified. Mild cardiomegaly. Calcified mediastinal lymph nodes are identified. Small groundglass nodule identified in the right upper lobe of the lung measuring 5 mm. There is a 6 mm nodule identified in the left upper lobe of the lung. Interval decrease in patchy bilateral lung airspace opacities with residual groundglass opacities identified in the bilateral upper lobes and bibasilar lungs with faint nodular opacities identified in the bilateral lungs. No evidence of pleural effusion or pneumothorax The visualized noncontrasted liver, adrenals grossly appears unremarkable. Multiple calcified granulomas identified in the spleen. The esophagus is mildly distended with fluid. Moderate degenerative changes thoracic lumbar spine. Mild superior endplate compression change of T12 vertebral body similar to prior exam. IMPRESSION: 1. Significantly improved bilateral interstitial and airspace opacities with residual patchy foci of airspace opacities. Recommend close interval follow-up examination to document complete resolution. 2. Scattered nodules identified in the bilateral lungs with the largest measuring 6 mm in the left upper lobe of the lung. Recommend follow-up CT in 3-6 months per Fleischner Society guidelines. 3. Diffuse coronary artery calcifications. 4. Mild fluid distended patulous esophagus. Follow-up esophagram can be considered. Correlate if patient has a history of scleroderma or a connective tissue disorder. Electronically signed by: Alvino Jiménez MD (05/16/2018 11:05 AM) [id number]
== END | disposition home or self-care (01) ==
LOC: CT 09:29
PROVIDERS: ATTEND Internal Medicine Critical Care Medicine
DX: R91.8 Other nonspecific abnormal finding of lung field (principal); J84.9 Interstitial pulmonary disease, unspecified; J84.10 Pulmonary fibrosis, unspecified; I25.10 Atherosclerotic heart disease of native coronary artery without angina pectoris; K22.8 Other specified diseases of esophagus; I51.7 Cardiomegaly
CPT/HCPCS: 71250

== ENCOUNTER → 2019-01-04 | Outpatient (CLI) | payer BC ==
[2019-01-03 14:24] VITALS: BP 124/59
[~2019-01-04] MED LIST changes: +OMEP40CA45 PO; -OMEP40CA5 PO
--- NOTE | 2019-01-04 13:10 | RAD ---
PQRS Compliance Statement: One or more of the following individualized dose reduction techniques were utilized for this examination: 1. Automated exposure control 2. Adjustment of the mA and/or kV according to patient size 3. Use of iterative reconstruction technique CT CHEST WO CONTRAST 01/04/2019 10:30 AM Indication: Lung nodule, interstitial lung disease COMPARISON: CT chest 05/16/2018 technique: Multiple axial CT images of the chest were obtained without intravenous contrast. Coronal and sagittal reformats are provided. FINDINGS: Upper lung zone predominant reticular interstitial changes are identified with mild peribronchial vascular groundglass changes mild bronchial wall thickening with traction bronchiectasis noted in the upper lobes bilaterally. There is a 7 mm solid noncalcified pulmonary nodule in the right upper lobe (series 8, image 59, stable. Interval resolution of lingular nodule measuring 6 mm on prior examination from 05/16/2018. No new or enlarging solid noncalcified pulmonary nodules. No pleural effusions, pulmonary vascular congestion or pneumothorax. Mild wall thickening is compatible with bronchitis. Calcified mediastinal lymph nodes are present. No new or enlarging distention or bilateral hilar lymph nodes are identified. Heart size within normal limits. There is no pericardial effusion. Thoracic aorta is normal in course and caliber. Three-vessel coronary artery vascular calcifications are present. Aortic valvular cusp patient's are suspected. Small hiatal hernia. Calcifications within the spleen likely represent sequela prior granulomatous exposure. Adrenal glands and visualized portions of the liver appear normal. No suspicious osseous normality is identified. IMPRESSION: 1. Bilateral upper lobe predominant interstitial changes are present which most favor interstitial lung disease as may be seen with inhalational disorders, sarcoidosis or silicosis. Granulomatous exposure is suggested by mediastinal calcified lymph nodes and splenic calcifications. Similar central groundglass changes are visualized. 2. Solid noncalcified pulmonary nodule in the right upper lobe measures up to 7 mm. 3. Resolution of lingular 6 mm solid noncalcified pulmonary nodule. 12 month follow-up chest CT may be of benefit to assess stability. Electronically signed by: Tia Sheffield MD (01/04/2019 1:06 PM) [id number]
== END | disposition home or self-care (01) ==
LOC: CT 10:09
PROVIDERS: ATTEND Internal Medicine Critical Care Medicine
DX: R91.1 Solitary pulmonary nodule (principal); I25.10 Atherosclerotic heart disease of native coronary artery without angina pectoris; K44.9 Diaphragmatic hernia without obstruction or gangrene
CPT/HCPCS: 71250

== ENCOUNTER 2019-03-02 08:53 | Emergency (ER) | payer BC ==
[~2019-03-02] VITALS: Ht 172.7 cm; Wt 75.7 kg
[2019-03-02 09:05] VITALS: BP 152/76
--- NOTE | 2019-03-02 09:33 | PHYS DOC ---
Past Medical History Past Medical History: GERD, Hypertension, Hypothyroid, Liver Disease, Renal Disease, Other Additional Past Medical Histor: [place],lung nodule,cirrhosis of liver , mitral valve regurgitation Past Surgical History: Appendectomy, Hysterectomy, Other Additional Past Surgical Histo: right ankle surgery, vena cava filter; stomach shunt Alcohol Use: None Drug Use: None Adult General Chief Complaint Chief Complaint: LOWER EXT PAIN [facility] HPI Patient is a 83 year old female who presents with [right lower leg swelling. Patient reports she had bumped her leg for 5 days ago, hasincreased swelling in the legs at that time. Does report she has a history of prior blood clots, does have a IVC filter in place. Reports she has tenderness to the back of her leg now. . Reports she is ambulatory, and has noticed some increased bruising on her leg since that time] Review of Systems Review of Systems Constitutional: Denies fever or chills [] ] Respiratory: Denies cough or shortness of breath [] Cardiovascular: No additional information not addressed in HPI [] GI: Denies abdominal pain, nausea, vomiting, bloody stools or diarrhea [] : Denies dysuria or hematuria [] Musculoskeletal: Denies back pain or joint pain complains of pain to right lower leg, inferior to right knee, complains of pain to right calf [] Integument: Denies rash or skin lesions does report increased bruising along her right lower leg[] Neurologic: Denies headache, focal weakness or sensory changes [] Endocrine: Denies polyuria or polydipsia [] All other systems were reviewed and found to be within normal limits, except as documented in this note. Allergies Allergies Allergies Coded Allergies Type Severity Reaction Last Updated Verified No Known Drug Allergies 01/31/19 No Physical Exam Physical Exam Constitutional: Well developed, well nourished, no acute distress, non-toxic appearance. [] . [] Neck: Normal range of motion, no tenderness, supple, no stridor. [] Cardiovascular:Heart rate regular rhythm, no murmur [] Lungs & Thorax: Bilateral breath sounds clear to auscultation [] Abdomen: Bowel sounds normal, soft, no tenderness, no masses, no pulsatile mass es. [] Skin: Warm, dry, no erythema, no rash. Bruising noted to the lateral aspect of right lower leg[] Back: No tenderness, no CVA tenderness. [] Extremities: Full ROM. No cyanosis. Minimal edema noted to lower leg. Swelling tenderness noted to the anterior aspect just inferior to right knee. No knee involvement. Positive Homans sign. Noted diameter of right leg slightly increased over that left leg... [] Neurologic: Alert and oriented X 3, normal motor function, normal sensory function, no focal deficits noted. [] Psychologic: Affect normal, judgement normal, mood normal. [] Current Patient Data Vital Signs Vital Signs Date Time Temp Pulse Resp B/P (MAP) Pulse Ox O2 Delivery O2 Flow Rate FiO2 03/02/19 09:05 97.7 80 17 152/76 (101) 99 Room Air 97.7 EKG EKG [] Radiology/Procedures Radiology/Procedures []ight lower extremity venous duplex study 03/02/2019 10:14 AM Clinical History: Right lower extremity edema Technique: Using a combination of real time ultrasound imaging and color-flow and pulse Doppler imaging techniques, including spectral analysis, graded compression and augmentation, duplex evaluation of the deep venous system of the right lower extremity was performed. Multiple images were obtained. Findings: There is no sonographic evidence of deep venous thrombosis involving the visualized deep venous structures of the right lower extremity Impression: No evidence of deep venous thrombosis involving the right lower extremity Electronically signed by: Daren Thomas MD (03/02/2019 10:14 AM) [facility] Course & Med Decision Making Course & Med Decision Making Pertinent Labs and Imaging studies reviewed. (See chart for details) [Discussed findings with patient, without noted DVT. Discussed contusion to leg, with recommendation to continue ice, tylenol. elevation. Patient in agreement with plan] Dragon Disclaimer Dragolvin Disclaimer This electronic medical record was generated, in whole or in part, using a voice recognition dictation system. Departure Departure Impression: Primary Impression: Contusion of right lower leg Disposition: 01 HOME, SELF-CARE Condition: GOOD Referrals: RAVI SAUER MD (PCP) Patient Instructions: Contusion, [id number] Additional Instructions: As we discussed, there was no blood clot noted in your leg today. Continue to use Tylenol for discomfort. Keep her leg elevated. You can put ice on your leg as well. Follow-up with your primary care provider as needed Problem Qualifiers Primary Impression: Contusion of right lower leg Encounter type: initial encounter Qualified Codes: S80.11XA - Contusion of right lower leg, initial encounter JOHNY MACHUCA APRN Mar 02, 2019 09:33
--- NOTE | 2019-03-02 10:18 | RAD ---
Right lower extremity venous duplex study 03/02/2019 10:14 AM Clinical History: Right lower extremity edema Technique: Using a combination of real time ultrasound imaging and color-flow and pulse Doppler imaging techniques, including spectral analysis, graded compression and augmentation, duplex evaluation of the deep venous system of the right lower extremity was performed. Multiple images were obtained. Findings: There is no sonographic evidence of deep venous thrombosis involving the visualized deep venous structures of the right lower extremity Impression: No evidence of deep venous thrombosis involving the right lower extremity Electronically signed by: Daren Thomas MD (03/02/2019 10:14 AM) [facility]
== END 2019-03-02 10:36 | disposition home or self-care (01) ==
LOC: ER 08:53
DX: S80.11XA Contusion of right lower leg, initial encounter (principal); K21.9 Gastro-esophageal reflux disease without esophagitis; I10 Essential (primary) hypertension; E03.9 Hypothyroidism, unspecified; Z90.89 Acquired absence of other organs; Z90.710 Acquired absence of both cervix and uterus; W22.8XXA Striking against or struck by other objects, initial encounter; Y93.89 Activity, other specified; Y92.89 Other specified places as the place of occurrence of the external cause; Y99.8 Other external cause status
CPT/HCPCS: 93971; 99284-25

== ENCOUNTER → 2019-05-09 | Outpatient (CLI) | payer BC ==
[2019-04-25 14:14] VITALS: BP 154/70
--- NOTE | 2019-05-09 15:11 | CARD ---
MR#: [id number] Date of Study: 05/09/2019 Ordering Physician: ELMIRA HURTADO, Referring Physician: ELMIRA HURTADO, Tech: Rand Ca APPROVED REPORT EXAM: Two-dimensional and M-mode echocardiogram with Doppler and color Doppler. Other Information Quality : AverageHR: 66bpm INDICATION Severe Tricuspid Regurgitation 2D DIMENSIONS RVDd3.0 (2.9-3.5cm)Left Atrium(2D)3.7 (1.6-4.0cm) IVSd1.1 (0.7-1.1cm)Aortic Root(2D)2.6 (2.0-3.7cm) LVDd5.1 (3.9-5.9cm)LVOT Diameter1.8 (1.8-2.4cm) PWd1.0 (0.7-1.1cm)LVDs3.3 (2.5-4.0cm) FS (%) 34.3 %SV77.5 ml LVEF(%)63.1 (>50%) Aortic Valve AoV Peak Richard.178.8cm/sAoV VTI42.8cm AO Peak GR.12.8mmHgLVOT Peak Richard.81.8cm/s LVOT VTI 20.63cmAO Mean GR.7mmHg KEVON (VMAX)0.21vj4IYC (VTI)1.25cm2 AI P 1/2 [id number] Mitral Valve MV E Fzamzopx776.1cm/sMV E Peak Gr.124mmHg MV DECEL [id number] A Efaorfgw95.8cm/s MV E Mean Gr.3mmHgMV QSH98tn E/A Ratio1.1MVA (PHT)3.74cm2 TDI E/Lateral E'11.5E/Medial E'19.5 Pulmonary Valve PV Peak Fduuikut90.6cm/sPV Peak Grad.2mmHg Tricuspid Valve TR P. Ghynbpbo058mp/sRAP PBNFXPLJ6rlFs TR Peak Gr.70dnXrDKVG37wmEj Pulmonary Vein S1 Fxytcbox84.3cm/sD2 Bspyoqxv21.4cm/s PVa [id number] LEFT VENTRICLE The left ventricle is normal size. There is borderline concentric left ventricular hypertrophy. The l eft ventricular systolic function is normal. The Ejection Fraction is 55-60%. There is normal LV segm ental wall motion. Tissue Doppler imaging reveals moderate left ventricular diastolic dysfunction. RIGHT VENTRICLE The right ventricle is normal size. There is normal right ventricular wall thickness. The right ventr icular systolic function is normal. ATRIA The left atrium is moderately dilated. The right atrium size is normal. The interatrial septum is int act with no evidence for an atrial septal defect or patent foramen ovale as noted on 2-D or Doppler i maging. AORTIC VALVE The aortic valve is calcified. Doppler and Color Flow revealed mild aortic regurgitation. There is no significant aortic valvular stenosis. MITRAL VALVE The mitral valve is normal in structure and function. There is no evidence of mitral valve prolapse. There is no mitral valve stenosis. Doppler and Color-flow revealed moderate mitral regurgitation. TRICUSPID VALVE The tricuspid valve is normal in structure and function. Doppler and Color Flow revealed moderate to severe tricuspid regurgitation with an estimated PAP of 85 mmHg. There is severe pulmonary hypertensi on. There is no tricuspid valve stenosis. PULMONIC VALVE The pulmonic valve is not well visualized. Doppler and Color Flow revealed trace to mild pulmonic rissa vular regurgitation. GREAT VESSELS The aortic root is normal in size. The IVC is normal in size and collapses >50% with inspiration. PERICARDIAL EFFUSION There is no evidence of significant pericardial effusion. Critical Notification Critical Value: No <Conclusion> The left ventricular systolic function is normal. The Ejection Fraction is 55-60%. There is normal LV segmental wall motion. The left atrium is moderately dilated. Mild aortic regurgitation. Moderate mitral regurgitation. Moderate to severe tricuspid regurgitation with an estimated PAP of 85 mmHg. There is severe pulmonary hypertension. There is no evidence of significant pericardial effusion. Signed by : Filemon Garcia, Electronically Approved : 05/09/2019 15:11:13
== END | disposition home or self-care (01) ==
LOC: ECHO 12:23
PROVIDERS: ATTEND Internal Medicine Cardiovascular Disease
DX: I08.8 Other rheumatic multiple valve diseases (principal)
CPT/HCPCS: 93306

== ENCOUNTER 2019-10-17 08:42 | Inpatient (IN) | payer BC ==
[~2019-10-17] VITALS: Ht 171.4 cm; Wt 72.3 kg
[~2019-10-17 08:42] MED LIST changes: +ALBU2.5V8 NEB; +AMLO5TAB10 PO; -ASPI-612 PO; +ASPI-886 PO; +CALC0.25 PO; -CYAN100T2 INJ; +CYAN100T21 INJ; +DOCU-153 PO; +FERR325T72 PO; +FLUT16SP NS; +GUAI100L12 PO; +TRAM50TA PO
[2019-10-17 09:30] LABS: BASO % 0 % (0-3); EOS % 0 % (0-3); HEMOGLOBIN 9.8 g/dL (12.0-15.5); LYMPH # 1.3 x10^3/uL (1.0-4.8); LYMPH % 12 % (24-48); MEAN CORPUSCULAR HEMOGLOBIN 31 pg (25-35); MEAN CORPUSCULAR HGB CONC 33 g/dL (31-37); MEAN CORPUSCULAR VOLUME 95 fL (79-100); MONO # 1.1 x10^3/uL (0.0-1.1); MONO % 10 % (0-9); NEUT # 8.4 x10^3/uL (1.8-7.7); NEUT % 78 % (31-73); PLATELET COUNT 176 x10^3/uL (140-400); RED BLOOD COUNT 3.16 x10^6/uL (3.50-5.40); RED CELL DISTRIBUTION WIDTH 16.3 % (11.5-14.5); WHITE BLOOD COUNT 10.8 x10^3/uL (4.0-11.0)
[2019-10-17 09:45] LABS: ALBUMIN/GLOBULIN RATIO 0.5 (1.0-1.7); C-REACTIVE PROTEIN 211.7 mg/L (0-3.3); CALCIUM 8.7 mg/dL (8.5-10.1); CREATININE 1.8 mg/dL (0.6-1.0); GFR 32.3; MAGNESIUM 1.7 mg/dL (1.8-2.4); TOTAL BILIRUBIN 0.4 mg/dL (0.2-1.0); TOTAL PROTEIN 5.9 g/dL (6.4-8.2)
[2019-10-17 09:51] LABS: BILIRUBIN,URINE NEGATIVE (NEG); CLARITY,URINE CLEAR; COLOR,URINE YELLOW; NITRITE,URINE NEGATIVE (NEG); PH,URINE 5.5 (<5.0-8.0); PROTEIN,URINE 30 mg/dL (NEG-TRACE); UROBILINOGEN,URINE 0.2 mg/dL (0.2 mg/dL)
[2019-10-17 09:51] LABS: POTASSIUM 4.1 mmol/L (3.5-5.1)
[2019-10-17 10:09] LABS: BACTERIA,URINE 0 /HPF (0-FEW); RBC,URINE RARE /HPF (0-2); SQUAMOUS EPITHELIAL CELL,UR OCC /LPF; WBC,URINE OCC /HPF (0-4)
[2019-10-17 10:10] LABS: AMORPHOUS SEDIMENT,UR PRESENT /HPF
[2019-10-17] MEDS ORDERED: MORPHINE SULFATE 2 MG/ML VIAL. IV ONE (10:15)
[2019-10-17] MEDS ORDERED: methylPREDNISolone SOD SUCC PF 125 MG/2 ML VIAL. IV ONE (10:45)
[2019-10-17] MEDS ORDERED: ONDANSETRON PF 4 MG/2 ML VIAL. IV PRN ×2 (12:45→19:30)
[2019-10-17] MEDS ORDERED: MAGNESIUM SULFATE 1GM 100 ML IV ONE (12:45)
[2019-10-17 13:44] VITALS: BP 141/57
[2019-10-17 15:00] VITALS: BP 145/60
--- NOTE | 2019-10-17 15:38 | PHYS DOC ---
Past Medical History Past Medical History: GERD, Hypertension, Hypothyroid, Liver Disease, Renal Disease, Other Additional Past Medical Histor: [place],lung nodule,cirrhosis of liver, mitral valve regurgitation Past Surgical History: Appendectomy, Hysterectomy, Other Additional Past Surgical Histo: right ankle surgery, vena cava filter; stomach shunt Smoking Status: Never Smoker Alcohol Use: None Drug Use: None General Adult EDM: Chief Complaint: UPPER EXTREMITY PAIN HPI: HPI: Patient is a 84 year old female who was brought here by EMS from home due to right upper extremity pain and swelling. There is no report of trauma. Family also reported that patient was found to be confused with altered mental status this morning. Patient was not able to walk around the house due to pain in her joint. Patient has history of rheumatoid arthritis. She has has pain in her hip joint, right wrist, right elbow and right shoulder for a week. Patient was brought to the urgent care yesterday by her son, was diagnosed with some muscle spasm, patient was put on a muscle relaxer. Patient was given muscle relaxer last night, this morning her son could not wake her up. So EMS were called to take her here for evaluation. There is no report of trauma. Patient also has history of CHF, her son says she has been more swollen than normal. There is no report of trouble breathing or chest pain. Upon arrival to ER patient was very somnolent. She Was not able to provide any information herself. Patient's son who is her caregiver was able to provide mo re information. Review of Systems: Review of Systems: Constitutional: Denies fever or chills. [] Eyes: Denies change in visual acuity. [] HENT: Denies nasal congestion or sore throat. [] Respiratory: Denies cough or shortness of breath. [] Cardiovascular: Denies chest pain , positive for edema in her upper and lower extremity. GI: Denies abdominal pain, nausea, vomiting, bloody stools or diarrhea. [] : Denies dysuria. [] Musculoskeletal: Positive for right shoulder pain, right elbow pain, right wrist pain. Integument: Denies rash. [] Neurologic: Denies headache, focal weakness or sensory changes. [] Endocrine: Denies polyuria or polydipsia. [] Lymphatic: Denies swollen glands. [] Psychiatric: Denies depression or anxiety. [] Heart Score: Risk Factors: Risk Factors: DM, Current or recent (<one month) smoker, HTN, HLP, family history of CAD, obesity. Risk Scores: Score 0 - 3: 2.5% MACE over next 6 weeks - Discharge Home Score 4 - 6: 20.3% MACE over next 6 weeks - Admit for Clinical Observation Score 7 - 10: 72.7% MACE over next 6 weeks - Early Invasive Strategies Current Medications: Current Medications Medications (Trade) Dose Ordered Sig/Caroline Start Time Stop Time Status Last Admin Dose Admin Methylprednisolone Sodium Succinate (SOLU-Medrol 125MG VIAL) 125 mg 1X ONCE 10/17/19 10:45 10/17/19 10:46 DC 10/17/19 11:16 125 MG Morphine Sulfate (Morphine Sulfate) 2 mg 1X ONCE 10/17/19 10:15 10/17/19 10:16 DC 10/17/19 11:17 2 MG Allergies: Allergies: Allergies Coded Allergies Type Severity Reaction Last Updated Verified No Known Drug Allergies 10/10/19 No Physical Exam: PE: Constitutional: Well developed, well nourished, no acute distress, non-toxic appearance. [] HENT: Normocephalic, atraumatic, bilateral external ears normal, oropharynx moist, no oral exudates, nose normal. [] Eyes: PERRLA, EOMI, conjunctiva normal, no discharge. Bilateral periorbital e yash Neck: Normal range of motion, no tenderness, supple, no stridor. [] Cardiovascular:Heart rate regular rhythm, no murmur [] Lungs & Thorax: Bilateral breath sounds clear to auscultation [] Abdomen: Bowel sounds normal, soft, no tenderness, no masses, no pulsatile masses. [] Skin: Warm, dry, no erythema, no rash. [] Back: No tenderness, no CVA tenderness. [] Extremities: Right wrist is swollen and tender to touch, warm to the touch, right elbow is tender with palpation, right shoulder tender with palpation however there is no deformity. There is no tenderness to palpation in her hip or pelvic area, no lower extremity deformity. There is Peripheral edema diffusely Neurologic: Patient appears somnolent, however she was able to wake up to verbal and painful stimuli. She was very confused. Psychologic: Affect normal, judgement normal, mood normal. [] Current Patient Data: Labs: Laboratory Tests Test 10/17/19 09:20 10/17/19 09:37 White Blood Count 10.8 x10^3/uL (4.0-11.0) Red Blood Count 3.16 x10^6/uL (3.50-5.40) L Hemoglobin 9.8 g/dL (12.0-15.5) L Hematocrit 30.0 % (36.0-47.0) L Mean Corpuscular Volume 95 fL (79-100) Mean Corpuscular Hemoglobin 31 pg (25-35) Mean Corpuscular Hemoglobin Concent 33 g/dL (31-37) Red Cell Distribution Width 16.3 % (11.5-14.5) H Platelet Count 176 x10^3/uL (140-400) Neutrophils (%) (Auto) 78 % (31-73) H Lymphocytes (%) (Auto) 12 % (24-48) L Monocytes (%) (Auto) 10 % (0-9) H Eosinophils (%) (Auto) 0 % (0-3) Basophils (%) (Auto) 0 % (0-3) Neutrophils # (Auto) 8.4 x10^3/uL (1.8-7.7) H Lymphocytes # (Auto) 1.3 x10^3/uL (1.0-4.8) Monocytes # (Auto) 1.1 x10^3/uL (0.0-1.1) Eosinophils # (Auto) 0.0 x10^3/uL (0.0-0.7) Basophils # (Auto) 0.0 x10^3/uL (0.0-0.2) Sodium Level 140 mmol/L (136-145) Potassium Level 4.1 mmol/L (3.5-5.1) Chloride Level 103 mmol/L (98-107) Carbon Dioxide Level 33 mmol/L (21-32) H Anion Gap 4 (6-14) L Blood Urea Nitrogen 44 mg/dL (7-20) H Creatinine 1.8 mg/dL (0.6-1.0) H Estimated GFR (Cockcroft-Gault) 32.3 BUN/Creatinine Ratio 24 (6-20) H Glucose Level 92 mg/dL (70-99) Calcium Level 8.7 mg/dL (8.5-10.1) Magnesium Level 1.7 mg/dL (1.8-2.4) L Total Bilirubin 0.4 mg/dL (0.2-1.0) Aspartate Amino Transferase (AST) 14 U/L (15-37) L Alanine Aminotransferase (ALT) 18 U/L (14-59) Alkaline Phosphatase 147 U/L (46-116) H Troponin I Quantitative < 0.017 ng/mL (0.000-0.055) C-Reactive Protein, Quantitative 211.7 mg/L (0-3.3) H LH-Ybf-E-Type Natriuretic Peptide 5482 pg/mL (0-449) H Total Protein 5.9 g/dL (6.4-8.2) L Albumin 2.0 g/dL (3.4-5.0) L Albumin/Globulin Ratio 0.5 (1.0-1.7) L Urine Collection Type U cath Urine Color Yellow Urine Clarity Clear Urine pH 5.5 (<5.0-8.0) Urine Specific [place] 1.020 (1.000-1.030) Urine Protein 30 mg/dL (NEG-TRACE) Urine Glucose (UA) Negative mg/dL (NEG) Urine Ketones (Stick) Negative mg/dL (NEG) Urine Blood Negative (NEG) Urine Nitrite Negative (NEG) Urine Bilirubin Negative (NEG) Urine Urobilinogen Dipstick 0.2 mg/dL (0.2 mg/dL) Urine Leukocyte Esterase Negative (NEG) Urine RBC Rare /HPF (0-2) Urine WBC Occ /HPF (0-4) Urine Squamous Epithelial Cells Occ /LPF Urine Amorphous Sediment Present /HPF Urine Bacteria 0 /HPF (0-FEW) Urine Mucus Slight /LPF Laboratory Tests 10/17/19 09:20 Laboratory Tests 10/17/19 09:20 Vital Signs: Vital Signs Date Time Temp Pulse Resp B/P (MAP) Pulse Ox O2 Delivery O2 Flow Rate FiO2 10/17/19 15:14 Room Air 10/17/19 15:00 98.3 18 16 145/60 (88) 98 98.3 EKG: EKG: [] Radiology/Procedures: Radiology/Procedures: [] Course & Med Decision Making: Course & Med Decision Making Pertinent Labs and Imaging studies reviewed. (See chart for details) Patient is an 84-year-old female who was evaluated in the ER due to general weakness, increased pain in her right upper extremity and increased swelling generally. It is suspect that the pain is due to the flare of her arthritis. Her family indicate that patient cannot ambulate around the house, she cannot walk normally. Patient will be admitted to hospital for further evaluation and treatment. Discussed with Dr. Louis who agreed to admit the patient. Dragon Disclaimer: Dragon Disclaimer: This electronic medical record was generated, in whole or in part, using a voice recognition dictation system. Departure Departure Impression: Primary Impression: Flare of rheumatoid arthritis Additional Impressions: Pain in joints Peripheral edema Weak Disposition: 09 ADMITTED INPATIENT Admitting Physician: ERICH (DR. EARL) Condition: STABLE Referrals: RAVI SAUER MD (PCP) Justicifation of Admission Dx: Justifications for Admission: Justification of Admission Dx: N/A TANVIR VERMA DO Oct 17, 2019 15:38
[2019-10-17 19:00] VITALS: BP 153/63
[2019-10-17] MEDS ORDERED: DOCUSATE SODIUM 100 MG CAPSULE. PO PRN (19:30)
[2019-10-17] MEDS ORDERED: ACETAMINOPHEN 325 MG TABLET. PO PRN (19:30)
[2019-10-17] MEDS ORDERED: HYDROcodone/APAP 5/325MG 1 TAB TABLET PO PRN (19:30)
[2019-10-17] MEDS ORDERED: guaiFENesin ORAL 200 MG/10 ML LIQUID. PO PRN (19:30)
[2019-10-17] MEDS ORDERED: ALBUTEROL SULFATE 2.5 MG/3 ML NEBU. NEB PRN (19:30)
--- NOTE | 2019-10-17 19:55 | NUR ---
Pt admitted from ED. Pt drowsy, A&O x self, confused, unable to answer questions without falling asleep. Completed admission assessment. Most admission questions were answered by son. Call light within reach. Pt sleeping in bed. Will return to monitor.
[2019-10-17] MEDS ORDERED: BUDESONIDE 0.5 MG/2 ML NEBU. NEB SCH (20:00)
[2019-10-17] MEDS ORDERED: ALBUTEROL SULFATE 2.5 MG/3 ML NEBU. NEB SCH (20:00)
--- NOTE | 2019-10-17 20:48 | HP ---
ADMIT DATE: 10/17/2019 CHIEF COMPLAINT: Mental status change. HISTORY OF PRESENT ILLNESS: The patient is a pleasant 84-year-old female who has a lot of arthritis and muscle pain and spasms and so she was placed on a muscle relaxer. She was told to take 1 tablet every 8 hours. She apparently is not tolerating. Her son brought her in. She states she is extremely confused and sleepy. Indeed, she is very sleepy, appears to have some toxicity from her muscle spasm relief medicine. We also noticed that she is hypomagnesemic with a magnesium level of 1.5. She also has some edema and has a known history of heart failure. We are going to admit the patient overnight for observation. PAST MEDICAL HISTORY: CHF, arthritis, muscle spasms, chronic pain, chronic periorbital edema. ALLERGIES: None known at this time. FAMILY HISTORY: Diabetes. SOCIAL HISTORY: She lives at home. Does not drink, smoke or take drugs. MEDICATIONS: Reviewed, please refer to the [facility]. REVIEW OF SYSTEMS: Unable to obtain. The patient is too sleepy and confused. PHYSICAL EXAMINATION: VITALS: Within normal limits and are stable. GENERAL: She is sedated.. HEENT: Normal cephalic atraumatic, external auditory canals are patent EYES: Extraocular muscles are intact, pupils are equally round and reactive to light and accommodation MUSCULOSKELETAL: Well developed, well nourished, good range of motion ENDOCRINE: No thyromegaly was palpated LYMPHATICS: No cervical chain or axillary nodes were noted HEMATOPOIETIC: No bruising NECK: Supple, no JVD, no thyromegaly was noted. LUNGS: Clear to auscultation in all lung [place] without rhonchi or wheezing. HEART: RRR, S1, S2 present. Peripheral pulses intact, no obvious murmurs were noted. ABDOMEN: Soft, nontender. Positive bowel sounds no organomegaly, normal bowel sounds. EXTREMITIES: Without any cyanosis, clubbing, or edema. Pedal pulses intact, Homans sign is negative. NEUROLOGIC: She barely awakens. She thinks the year is 1970 and she goes back to sleep. She did smile. PSYCHIATRIC: Unobtainable as the patient is too sedated. SKIN: No ulcerations or rashes, good skin turgor, no jaundice. VASCULAR: Good capillary refill, neurovascular bundle appears to be intact. ASSESSMENT AND PLAN: Probable iatrogenic induced toxic encephalopathy from muscle relaxers with incidental finding of hypomagnesemia and edema. The patient has been admitted. We will replace her mag, hold her home meds, cardiac monitoring. DVT prophylaxis. Trend labs. YANA EARL DO DR: JAYDE/marisel JOB#: [id number] / [id number]
[2019-10-17] MEDS: MORPHINE SULFATE 2 MG/ML VIAL. IV PRN (20:53)
[2019-10-17] MEDS ORDERED: NON FORMULARY ITEM (Budesonide/Formoterol Fumarate (Symbicort 80-4.5 Mcg Inhaler) 1 PUFF) IH SCH (21:00)
[2019-10-17] MEDS ORDERED: FUROSEMIDE 40 MG TABLET. PO ONE (21:00)
[2019-10-17 23:00] VITALS: BP 121/55
[2019-10-17] MEDS: methylPREDNISolone SOD SUCC PF 40 MG/ML VIAL. IV SCH (23:10)
[2019-10-18] MEDS: MORPHINE SULFATE 2 MG/ML VIAL. IV PRN (01:11)
--- NOTE | 2019-10-18 01:59 | NUR ---
patient very restless , bearing down a lot and seems to be in pain, unable to verbalized where her pain was, bladder scan done, revealed 840 ml , straight cath done and obtained 800ml , resting at this time.
[2019-10-18 03:00] VITALS: BP 133/62
[2019-10-18] MEDS: methylPREDNISolone SOD SUCC PF 40 MG/ML VIAL. IV SCH ×3 (06:54→20:48)
[2019-10-18] MEDS: LEVOTHYROXINE 75 MCG TABLET PO SCH (06:55)
[2019-10-18 07:00] VITALS: BP 168/89
[2019-10-18] MEDS: ALBUTEROL SULFATE 2.5 MG/3 ML NEBU. NEB SCH ×4 (07:46→20:20)
[2019-10-18] MEDS: BUDESONIDE 0.5 MG/2 ML NEBU. NEB SCH ×2 (07:47→20:20)
[2019-10-18] MEDS: CHOLECALCIFEROL (VITAMIN D3) 1,000 UNIT TABLET PO SCH (08:17)
[2019-10-18] MEDS: ASPIRIN ENTERIC COATED 81 MG TABLET.DR. PO SCH (08:18)
[2019-10-18] MEDS: FUROSEMIDE 40 MG TABLET. PO SCH ×2 (08:18→14:39)
[2019-10-18] MEDS: amLODIPine BESYLATE 5 MG TABLET PO SCH (08:18)
[2019-10-18] MEDS: CALCITRIOL 0.25 MCG CAPSULE. PO SCH (08:18)
[2019-10-18] MEDS: METOPROLOL SUCC 24HR ER 25 MG TAB.ER.24H. PO SCH (08:18)
[2019-10-18] MEDS: FLUTICASONE 50MCG/NASAL SPRAY 16GM BOTTLE. NS SCH (08:21)
[2019-10-18] MEDS ORDERED: traMADol 50 MG TABLET PO PRN (08:30)
--- NOTE | 2019-10-18 09:27 | NUR ---
SW following. Discussed with RN, pt from home with son, room air, regular diet. PT/OT ordered, pt is confused - no UTI. SW will continue to follow.
[2019-10-18 11:00] VITALS: BP 105/69
[2019-10-18] MEDS: DICLOFENAC SODIUM 1% TOPICAL GEL 100GM TUBE. TP SCH ×2 (14:46→20:48)
[2019-10-18 15:00] VITALS: BP 130/72
--- NOTE | 2019-10-18 17:16 | PDOC ---
PROGRESS NOTES Date of Service: DATE: 10/18/19 TIME: 17:15 Chief Complaint Chief Complaint Joint swelling History of Present Illness History of Present Illness Evaluated with family at bedside. Patient is feeling better with holding Baclofen and hydrocodone. Joint pain and swelling improving. Denies any further hallucinations. Still with some weakness and physical disability. Patient and family weighing options of home health vs. SNF. Vitals Vitals Vital Signs Date Time Temp Pulse Resp B/P (MAP) Pulse Ox O2 Delivery O2 Flow Rate FiO2 10/18/19 15:49 99 Room Air 10/18/19 15:00 98.9 92 18 130/72 (91) 98.9 Physical Exam Lungs: Clear, Crackles Review of Systems Review of Systems Joint swelling. Denies joint pain, denies fever, denies nausea, denies vomiting, denies chest pain Assessment and Plan Assessmemt and Plan Problems Medical Problems: (1) Flare of rheumatoid arthritis Status: Acute (2) Pain in joints Status: Acute (3) Peripheral edema Status: Acute (4) Weak Status: Acute Plan: Recommend continued PT given significantly limited function secondary to RA. Her joint pain and swelling are a barrier to discharge that may take at least 48 hours to resolve prior to being medically stable. Continue steroid treatment. Comment Review of Relevant I have reviewed the following items kade (where applicable) has been applied. Labs Laboratory Tests Test 10/17/19 09:20 10/17/19 09:37 White Blood Count 10.8 x10^3/uL (4.0-11.0) Red Blood Count 3.16 x10^6/uL (3.50-5.40) Hemoglobin 9.8 g/dL (12.0-15.5) Hematocrit 30.0 % (36.0-47.0) Mean Corpuscular Volume 95 fL (79-100) Mean Corpuscular Hemoglobin 31 pg (25-35) Mean Corpuscular Hemoglobin Concent 33 g/dL (31-37) Red Cell Distribution Width 16.3 % (11.5-14.5) Platelet Count 176 x10^3/uL (140-400) Neutrophils (%) (Auto) 78 % (31-73) Lymphocytes (%) (Auto) 12 % (24-48) Monocytes (%) (Auto) 10 % (0-9) Eosinophils (%) (Auto) 0 % (0-3) Basophils (%) (Auto) 0 % (0-3) Neutrophils # (Auto) 8.4 x10^3/uL (1.8-7.7) Lymphocytes # (Auto) 1.3 x10^3/uL (1.0-4.8) Monocytes # (Auto) 1.1 x10^3/uL (0.0-1.1) Eosinophils # (Auto) 0.0 x10^3/uL (0.0-0.7) Basophils # (Auto) 0.0 x10^3/uL (0.0-0.2) Sodium Level 140 mmol/L (136-145) Potassium Level 4.1 mmol/L (3.5-5.1) Chloride Level 103 mmol/L (98-107) Carbon Dioxide Level 33 mmol/L (21-32) Anion Gap 4 (6-14) Blood Urea Nitrogen 44 mg/dL (7-20) Creatinine 1.8 mg/dL (0.6-1.0) Estimated GFR (Cockcroft-Gault) 32.3 BUN/Creatinine Ratio 24 (6-20) Glucose Level 92 mg/dL (70-99) Calcium Level 8.7 mg/dL (8.5-10.1) Magnesium Level 1.7 mg/dL (1.8-2.4) Total Bilirubin 0.4 mg/dL (0.2-1.0) Aspartate Amino Transf (AST/SGOT) 14 U/L (15-37) Alanine Aminotransferase (ALT/SGPT) 18 U/L (14-59) Alkaline Phosphatase 147 U/L (46-116) Troponin I Quantitative < 0.017 ng/mL (0.000-0.055) C-Reactive Protein, Quantitative 211.7 mg/L (0-3.3) BK-Ujd-[id number]-Type Natriuretic Peptide 5482 pg/mL (0-449) Total Protein 5.9 g/dL (6.4-8.2) Albumin 2.0 g/dL (3.4-5.0) Albumin/Globulin Ratio 0.5 (1.0-1.7) Urine Collection Type U cath Urine Color Yellow Urine Clarity Clear Urine pH 5.5 (<5.0-8.0) Urine Specific [place] 1.020 (1.000-1.030) Urine Protein 30 mg/dL (NEG-TRACE) Urine Glucose (UA) Negative mg/dL (NEG) Urine Ketones (Stick) Negative mg/dL (NEG) Urine Blood Negative (NEG) Urine Nitrite Negative (NEG) Urine Bilirubin Negative (NEG) Urine Urobilinogen Dipstick 0.2 mg/dL (0.2 mg/dL) Urine Leukocyte Esterase Negative (NEG) Urine RBC Rare /HPF (0-2) Urine WBC Occ /HPF (0-4) Urine Squamous Epithelial Cells Occ /LPF Urine Amorphous Sediment Present /HPF Urine Bacteria 0 /HPF (0-FEW) Urine Mucus Slight /LPF Medications Current Medications Morphine Sulfate (Morphine Sulfate) 2 mg 1X ONCE IV Last administered on 10/17/19at 11:17; Start 10/17/19 at 10:15; Stop 10/17/19 at 10:16; Status DC Methylprednisolone Sodium Succinate (SOLU-Medrol 125MG VIAL) 125 mg 1X ONCE IV Last administered on 10/17/19at 11:16; Start 10/17/19 at 10:45; Stop 10/17/19 at 10:46; Status DC Magnesium Sulfate/ Dextrose 100 ml @ 100 mls/hr 1X ONCE IV Last administered on 10/17/19at 17:19; Start 10/17/19 at 12:45; Stop 10/17/19 at 13:44; Status DC Ondansetron HCl (Zofran) 4 mg PRN Q8HRS PRN IV NAUSEA/VOMITING; Start 10/17/19 at 12:45; Stop 10/17/19 at 19:27; Status DC Ondansetron HCl (Zofran) 4 mg PRN Q4HRS PRN IV NAUSEA/VOMITING; Start 10/17/19 at 19:30 Acetaminophen (Tylenol) 650 mg PRN Q4HRS PRN PO TEMP OVER 100.4F OR MILD PAIN; Start 10/17/19 at 19:30 Albuterol Sulfate (Ventolin Neb Soln) 2.5 mg PRN Q4HRS PRN NEB SHORTNESS OF BREATH; Start 10/17/19 at 19:30 Amlodipine Besylate (Norvasc) 5 mg DAILY PO Last administered on 10/18/19at 08:18; Start 10/18/19 at 09:00 Aspirin (Ecotrin) 81 mg DAILY PO Last administered on 10/18/19 08:18; Start 10/18/19 at 09:00 Calcitriol (Rocaltrol) 0.5 mcg DAILY PO Last administered on 10/18/19 08:18; Start 10/18/19 at 09:00 Vitamin D (Vitamin D3) 1,000 unit DAILY PO Last administered on 10/18/19at 08:17; Start 10/18/19 at 09:00 Docusate Sodium (Colace) 100 mg PRN BID PRN PO HARD STOOLS; Start 10/17/19 at 19:30 Ferrous Sulfate (Feosol) 325 mg QODAY PO ; Start 10/19/19 at 09:00 Fluticasone Propionate (Flonase) 2 spray DAILY NS Last administered on 10/18/19 08:21; Start 10/18/19 at 09:00 Furosemide (Lasix) 40 mg BID92 PO Last administered on 10/18/19at 14:39; Start 10/18/19 at 09:00 Guaifenesin (Robitussin) 200 mg PRN Q4HRS PRN PO COUGH; Start 10/17/19 at 19:30 Acetaminophen/ Hydrocodone Bitart (Lortab 5/325) 1 tab PRN Q6HRS PRN PO MODERATE PAIN Last administered on 10/17/19at 19:56; Start 10/17/19 at 19:30; Stop 10/18/19 at 08:27; Status DC Levothyroxine Sodium (Synthroid) 75 mcg DAILY06 PO Last administered on 10/18/19at 06:55; Start 10/18/19 at 06:00 Metoprolol Succinate (Toprol Xl) 25 mg DAILY PO Last administered on 10/18/19at 08:18; Start 10/18/19 at 09:00 Non-Formulary Medication (Budesonide/ Formoterol Fumarate (Symbicort 80-4.5 Mcg Inhaler)) 1 puff BID IH ; Start 10/17/19 at 21:00; Stop 10/17/19 at 20:46; Status DC Morphine Sulfate (Morphine Sulfate) 2 mg PRN Q4HRS PRN IV PAIN Last administered on 10/18/19at 01:11; Start 10/17/19 at 19:30 Methylprednisolone Sodium Succinate (SOLU-Medrol 40MG VIAL) 40 mg Q8HRS IV Last administered on 10/18/19at 14:39; Start 10/17/19 at 22:00; Stop 10/19/19 at 06:01 Albuterol Sulfate (Ventolin Neb Soln) 2.5 mg RTQID NEB ; Start 10/17/19 at 20:00; Stop 10/17/19 at 19:57; Status DC Budesonide (Pulmicort) 0.5 mg RTBID NEB ; Start 10/17/19 at 20:00; Stop 10/17/19 at 19:57; Status DC Albuterol Sulfate (Ventolin Neb Soln) 2.5 mg RTQID NEB Last administered on 10/18/19at 15:47; Start 10/17/19 at 22:00 Budesonide (Pulmicort) 0.5 mg RTBID NEB Last administered on 10/18/19at 07:47; Start 10/17/19 at 22:00 Furosemide (Lasix) 40 mg 1X ONCE PO Last administered on 10/17/19at 20:58; Start 10/17/19 at 21:00; Stop 10/17/19 at 21:01; Status DC Tramadol HCl (Ultram) 50 mg PRN Q6HRS PRN PO MODERATE-SEVERE PAIN Last administered on 10/18/19at 10:46; Start 10/18/19 at 08:30 Diclofenac Sodium (Voltaren) 1 igor BID TP Last administered on 10/18/19at 14:46; Start 10/18/19 at 15:00 Active Scripts Active Furosemide 40 Mg Tablet 1 Tab PO BID 30 Days Dok (Docusate Sodium) 100 Mg Capsule 100 Mg PO PRN BID PRN 30 Days Fluticasone Propionate Nasal [place] (Fluticasone Propionate) 16 Gm [place].susp 2 [place] NS DAILY 30 Days Guaifenesin 100 Mg/5 Ml Liquid 200 Mg PO PRN Q4HRS PRN 30 Days Tylenol (Acetaminophen) 325 Mg Tablet 650 Mg PO PRN Q4HRS PRN 30 Days Hydrocodone-Apap 5-325 (Hydrocodone Bit/Acetaminophen) 1 Tab Tablet 1 Tab PO PRN Q6HRS PRN 14 Days Amlodipine Besylate 5 Mg Tablet 5 Mg PO DAILY 30 Days Metoprolol Succinate ( Xl ) (Metoprolol Succinate) 25 Mg Tab.er.24h 25 Mg PO DAILY 30 Days Feosol (Ferrous Sulfate) 325 Mg Tablet 325 Mg PO QODAY 30 Days Proair Hfa (Albuterol Sulfate) 8.5 Gm Hfa.aer.ad 2.5 Mg NEB PRN Q4HRS PRN 30 Days Symbicort 80-4.5 Mcg Inhaler (Budesonide/Formoterol Fumarate) 10.2 Gm Hfa.aer.ad 1 Puff IH BID Reported Calcitriol 0.25 Mcg Capsule 10 Mg PO DAILY MDD 10 mg Vitamin D3 (Cholecalciferol (Vitamin D3)) 1,000 Unit Tablet 1,000 Unit PO DAILY Levothyroxine Sodium 50 Mcg Tablet 75 Mcg PO DAILY Aspirin Ec (Aspirin) 81 Mg Tablet.dr 81 Mg PO DAILY Vitals/I & O Vital Sign - Last 24 Hours 10/17/19 10/17/19 10/17/19 10/17/19 19:00 19:56 20:00 20:53 Temp 97.7 97.7 Pulse 85 Resp 18 20 20 B/P (MAP) 153/63 (93) Pulse Ox 96 96 96 O2 Delivery Room Air Room Air Room Air Room Air 10/17/19 10/17/19 10/17/19 10/18/19 20:56 21:23 23:00 01:11 Temp 97.6 97.6 Pulse 84 Resp 20 18 18 20 B/P (MAP) 121/55 (77) Pulse Ox 96 96 96 96 O2 Delivery Room Air Room Air Room Air Room Air 10/18/19 10/18/19 10/18/19 10/18/19 01:41 03:00 07:00 07:51 Temp 97.6 97.7 97.6 97.7 Pulse 109 89 Resp 20 18 18 B/P (MAP) 133/62 (85) 168/89 (115) Pulse Ox 96 96 96 99 O2 Delivery Room Air Room Air Room Air Room Air 10/18/19 10/18/19 10/18/19 10/18/19 08:00 08:18 08:18 10:46 Pulse 89 89 B/P (MAP) 168/89 168/89 O2 Delivery Room Air Room Air 10/18/19 10/18/19 10/18/19 10/18/19 11:00 11:46 11:49 15:00 Temp 99.1 98.9 99.1 98.9 Pulse 100 92 Resp 18 18 B/P (MAP) 105/69 (81) 130/72 (91) Pulse Ox 94 99 94 O2 Delivery Room Air Room Air Room Air Room Air 10/18/19 15:49 Pulse Ox 99 O2 Delivery Room Air Intake and Output 10/17/19 10/17/19 10/18/19 15:00 23:00 07:00 Intake Total 0 ml Output Total 1000 ml Balance -1000 ml Justicifation of Admission Dx: Justifications for Admission: Justification of Admission Dx: N/A LINDSAY WHITING MD Oct 18, 2019 17:16
[2019-10-18 19:00] VITALS: BP 140/71
[2019-10-18 23:00] VITALS: BP 141/61
--- NOTE | 2019-10-18 23:11 | CONS ---
DATE OF CONSULTATION: 10/18/2019 ATTENDING PHYSICIAN: Dr. James. REASON FOR CONSULTATION: The patient was seen at the request of Dr. James for rehab evaluation. HISTORY OF PRESENT ILLNESS: This is an 84-year-old female with arthritis, muscle pain and spasms, was placed on baclofen apparently taking every 8 hours. She is not tolerating it well. Her son brought her to the Emergency Room saying that she is extremely sleepy and confused. The patient was also noted with hypomagnesemia with serum magnesium level of 1.5, some edema in a patient with known history of heart failure. The patient also with known chronic pain, chronic periorbital edema. ALLERGIES: Not known allergic to any medication. FAMILY HISTORY: Diabetes mellitus. SOCIAL HISTORY: She lives at home with her son. No steps for her to manage. She usually walks using a walker. The patient had decreased acuity of hearing. She denies any trouble with her bowel or bladder control. PHYSICAL EXAMINATION: Today revealed an elderly female. She is alert, decreased acuity of hearing. She moves all 4 extremities voluntarily where she had 4+/5 grade muscle strength. Deep tendon reflexes are decreased overall with absent knee and ankle jerks and she had equal perception of touch and pinprick sensation bilaterally. She had crepitus on range of motion of both knee joints with knee joint effusion. No significant pain on range of motion of all 4 extremity joints. She had edema of both wrists, right more than left side. The patient had intact skin at this time. The patient had equal perception of touch and pinprick sensation bilaterally. No obvious visual field cut or facial asymmetry noted. She got up and walked using a roller walker with wide-based gait. ASSESSMENT AND PLAN: Elderly female with degenerative joint disease of both knees and also with edema of both wrists, clinical evidence of peripheral neuropathy in a patient with known congestive heart failure, decreased acuity of hearing. RECOMMENDATIONS: To try diclofenac gel to her knees and wrist area to use ice packs. Agree with the plan for physical therapy and occupational therapy. Home when medically stable with home health followup. Dr. James, I appreciate asking me to participate in the care of this interesting patient. I will be glad to follow her with you as needed for rehabilitation. SIVAKOTI R. CASSIE, MD DR: JULIET/marisel JOB#: [id number] / [id number]
[2019-10-19 03:00] VITALS: BP 157/91
[2019-10-19] MEDS: methylPREDNISolone SOD SUCC PF 40 MG/ML VIAL. IV SCH (05:31)
[2019-10-19] MEDS: LEVOTHYROXINE 75 MCG TABLET PO SCH (05:31)
[2019-10-19 07:00] VITALS: BP 156/79
[2019-10-19 07:23] LABS: BASO % 0 % (0-3); EOS % 0 % (0-3); LYMPH # 0.5 x10^3/uL (1.0-4.8); LYMPH % 5 % (24-48); MEAN CORPUSCULAR HEMOGLOBIN 31 pg (25-35); MEAN CORPUSCULAR HGB CONC 32 g/dL (31-37); MEAN CORPUSCULAR VOLUME 96 fL (79-100); MONO # 0.3 x10^3/uL (0.0-1.1); MONO % 3 % (0-9); NEUT # 9.3 x10^3/uL (1.8-7.7); NEUT % 92 % (31-73); PLATELET COUNT 155 x10^3/uL (140-400); RED BLOOD COUNT 2.92 x10^6/uL (3.50-5.40); RED CELL DISTRIBUTION WIDTH 16.7 % (11.5-14.5)
[2019-10-19] MEDS: ALBUTEROL SULFATE 2.5 MG/3 ML NEBU. NEB SCH ×2 (07:51→11:31)
[2019-10-19] MEDS: BUDESONIDE 0.5 MG/2 ML NEBU. NEB SCH (07:51)
[2019-10-19 08:13] LABS: C-REACTIVE PROTEIN 177.8 mg/L (0-3.3); CALCIUM 9.1 mg/dL (8.5-10.1); CREATININE 2.2 mg/dL (0.6-1.0); GFR 25.6; MAGNESIUM 2.5 mg/dL (1.8-2.4); POTASSIUM 4.1 mmol/L (3.5-5.1)
[2019-10-19] MEDS ORDERED: FERROUS SULFATE 325 MG TABLET. PO SCH (09:00)
[2019-10-19] MEDS: DICLOFENAC SODIUM 1% TOPICAL GEL 100GM TUBE. TP SCH (09:00)
[2019-10-19] MEDS: FUROSEMIDE 40 MG TABLET. PO SCH (09:22)
[2019-10-19] MEDS: amLODIPine BESYLATE 5 MG TABLET PO SCH (09:22)
[2019-10-19] MEDS: CALCITRIOL 0.25 MCG CAPSULE. PO SCH (09:22)
[2019-10-19] MEDS: METOPROLOL SUCC 24HR ER 25 MG TAB.ER.24H. PO SCH (09:22)
[2019-10-19] MEDS: ASPIRIN ENTERIC COATED 81 MG TABLET.DR. PO SCH (09:22)
[2019-10-19] MEDS: CHOLECALCIFEROL (VITAMIN D3) 1,000 UNIT TABLET PO SCH (09:23)
[2019-10-19] MEDS: FLUTICASONE 50MCG/NASAL SPRAY 16GM BOTTLE. NS SCH (09:23)
--- NOTE | 2019-10-19 09:25 | PDOC ---
PROGRESS NOTES Date of Service DATE: 10/19/19 TIME: 09:24 Subjective Subjective No new complaints. Objective Objective Vital Signs Date Time Temp Pulse Resp B/P (MAP) Pulse Ox O2 Delivery O2 Flow Rate FiO2 10/19/19 07:54 97 Room Air 10/19/19 07:00 98.3 102 16 156/79 (104) 98.3 Intake and Output 10/19/19 07:00 Intake Total 770 ml Balance 770 ml Intake Oral 770 ml # Voids 3 Physical Exam Physical Exam She is alert,supine in bed and walking with roller walker. Assessment Assessment Problems Medical Problems: (1) Flare of rheumatoid arthritis Status: Acute (2) Pain in joints Status: Acute (3) Peripheral edema Status: Acute (4) Weak Status: Acute Plan Plan of [facility] when medically stable. Comment Review of Relevant I have reviewed the following items kade (where applicable) has been applied. Labs Laboratory Tests Test 10/17/19 09:37 10/19/19 06:19 Urine Collection Type U cath Urine Color Yellow Urine Clarity Clear Urine pH 5.5 (<5.0-8.0) Urine Specific [place] 1.020 (1.000-1.030) Urine Protein 30 mg/dL (NEG-TRACE) Urine Glucose (UA) Negative mg/dL (NEG) Urine Ketones (Stick) Negative mg/dL (NEG) Urine Blood Negative (NEG) Urine Nitrite Negative (NEG) Urine Bilirubin Negative (NEG) Urine Urobilinogen Dipstick 0.2 mg/dL (0.2 mg/dL) Urine Leukocyte Esterase Negative (NEG) Urine RBC Rare /HPF (0-2) Urine WBC Occ /HPF (0-4) Urine Squamous Epithelial Cells Occ /LPF Urine Amorphous Sediment Present /HPF Urine Bacteria 0 /HPF (0-FEW) Urine Mucus Slight /LPF White Blood Count 10.0 x10^3/uL (4.0-11.0) Red Blood Count 2.92 x10^6/uL (3.50-5.40) Hemoglobin 9.0 g/dL (12.0-15.5) Hematocrit 28.0 % (36.0-47.0) Mean Corpuscular Volume 96 fL (79-100) Mean Corpuscular Hemoglobin 31 pg (25-35) Mean Corpuscular Hemoglobin Concent 32 g/dL (31-37) Red Cell Distribution Width 16.7 % (11.5-14.5) Platelet Count 155 x10^3/uL (140-400) Neutrophils (%) (Auto) 92 % (31-73) Lymphocytes (%) (Auto) 5 % (24-48) Monocytes (%) (Auto) 3 % (0-9) Eosinophils (%) (Auto) 0 % (0-3) Basophils (%) (Auto) 0 % (0-3) Neutrophils # (Auto) 9.3 x10^3/uL (1.8-7.7) Lymphocytes # (Auto) 0.5 x10^3/uL (1.0-4.8) Monocytes # (Auto) 0.3 x10^3/uL (0.0-1.1) Eosinophils # (Auto) 0.0 x10^3/uL (0.0-0.7) Basophils # (Auto) 0.0 x10^3/uL (0.0-0.2) Sodium Level 138 mmol/L (136-145) Potassium Level 4.1 mmol/L (3.5-5.1) Chloride Level 100 mmol/L (98-107) Carbon Dioxide Level 30 mmol/L (21-32) Anion Gap 8 (6-14) Blood Urea Nitrogen 69 mg/dL (7-20) Creatinine 2.2 mg/dL (0.6-1.0) Estimated GFR (Cockcroft-Gault) 25.6 Glucose Level 169 mg/dL (70-99) Calcium Level 9.1 mg/dL (8.5-10.1) Magnesium Level 2.5 mg/dL (1.8-2.4) C-Reactive Protein, Quantitative 177.8 mg/L (0-3.3) Laboratory Tests Test 10/19/19 06:19 White Blood Count 10.0 x10^3/uL (4.0-11.0) Red Blood Count 2.92 x10^6/uL (3.50-5.40) Hemoglobin 9.0 g/dL (12.0-15.5) Hematocrit 28.0 % (36.0-47.0) Mean Corpuscular Volume 96 fL (79-100) Mean Corpuscular Hemoglobin 31 pg (25-35) Mean Corpuscular Hemoglobin Concent 32 g/dL (31-37) Red Cell Distribution Width 16.7 % (11.5-14.5) Platelet Count 155 x10^3/uL (140-400) Neutrophils (%) (Auto) 92 % (31-73) Lymphocytes (%) (Auto) 5 % (24-48) Monocytes (%) (Auto) 3 % (0-9) Eosinophils (%) (Auto) 0 % (0-3) Basophils (%) (Auto) 0 % (0-3) Neutrophils # (Auto) 9.3 x10^3/uL (1.8-7.7) Lymphocytes # (Auto) 0.5 x10^3/uL (1.0-4.8) Monocytes # (Auto) 0.3 x10^3/uL (0.0-1.1) Eosinophils # (Auto) 0.0 x10^3/uL (0.0-0.7) Basophils # (Auto) 0.0 x10^3/uL (0.0-0.2) Sodium Level 138 mmol/L (136-145) Potassium Level 4.1 mmol/L (3.5-5.1) Chloride Level 100 mmol/L (98-107) Carbon Dioxide Level 30 mmol/L (21-32) Anion Gap 8 (6-14) Blood Urea Nitrogen 69 mg/dL (7-20) Creatinine 2.2 mg/dL (0.6-1.0) Estimated GFR (Cockcroft-Gault) 25.6 Glucose Level 169 mg/dL (70-99) Calcium Level 9.1 mg/dL (8.5-10.1) Magnesium Level 2.5 mg/dL (1.8-2.4) C-Reactive Protein, Quantitative 177.8 mg/L (0-3.3) Medications Current Medications Morphine Sulfate (Morphine Sulfate) 2 mg 1X ONCE IV Last administered on 10/17/19at 11:17; Start 10/17/19 at 10:15; Stop 10/17/19 at 10:16; Status DC Methylprednisolone Sodium Succinate (SOLU-Medrol 125MG VIAL) 125 mg 1X ONCE IV Last administered on 10/17/19at 11:16; Start 10/17/19 at 10:45; Stop 10/17/19 at 10:46; Status DC Magnesium Sulfate/ Dextrose 100 ml @ 100 mls/hr 1X ONCE IV Last administered on 10/17/19at 17:19; Start 10/17/19 at 12:45; Stop 10/17/19 at 13:44; Status DC Ondansetron HCl (Zofran) 4 mg PRN Q8HRS PRN IV NAUSEA/VOMITING; Start 10/17/19 at 12:45; Stop 10/17/19 at 19:27; Status DC Ondansetron HCl (Zofran) 4 mg PRN Q4HRS PRN IV NAUSEA/VOMITING; Start 10/17/19 at 19:30 Acetaminophen (Tylenol) 650 mg PRN Q4HRS PRN PO TEMP OVER 100.4F OR MILD PAIN; Start 10/17/19 at 19:30 Albuterol Sulfate (Ventolin Neb Soln) 2.5 mg PRN Q4HRS PRN NEB SHORTNESS OF BREATH; Start 10/17/19 at 19:30 Amlodipine Besylate (Norvasc) 5 mg DAILY PO Last administered on 10/18/19at 08:18; Start 10/18/19 at 09:00 Aspirin (Ecotrin) 81 mg DAILY PO Last administered on 10/18/19at 08:18; Start 10/18/19 at 09:00 Calcitriol (Rocaltrol) 0.5 mcg DAILY PO Last administered on 10/18/19 08:18; Start 10/18/19 at 09:00 Vitamin D (Vitamin D3) 1,000 unit DAILY PO Last administered on 10/18/19at 08:17; Start 10/18/19 at 09:00 Docusate Sodium (Colace) 100 mg PRN BID PRN PO HARD STOOLS; Start 10/17/19 at 19:30 Ferrous Sulfate (Feosol) 325 mg QODAY PO ; Start 10/19/19 at 09:00 Fluticasone Propionate (Flonase) 2 spray DAILY NS Last administered on 10/18/19 08:21; Start 10/18/19 at 09:00 Furosemide (Lasix) 40 mg BID92 PO Last administered on 10/18/19at 14:39; Start 10/18/19 at 09:00 Guaifenesin (Robitussin) 200 mg PRN Q4HRS PRN PO COUGH; Start 10/17/19 at 19:30 Acetaminophen/ Hydrocodone Bitart (Lortab 5/325) 1 tab PRN Q6HRS PRN PO MODERATE PAIN Last administered on 10/17/19at 19:56; Start 10/17/19 at 19:30; Stop 10/18/19 at 08:27; Status DC Levothyroxine Sodium (Synthroid) 75 mcg DAILY06 PO Last administered on 10/19/19at 05:31; Start 10/18/19 at 06:00 Metoprolol Succinate (Toprol Xl) 25 mg DAILY PO Last administered on 10/18/19at 08:18; Start 10/18/19 at 09:00 Non-Formulary Medication (Budesonide/ Formoterol Fumarate (Symbicort 80-4.5 Mcg Inhaler)) 1 puff BID IH ; Start 10/17/19 at 21:00; Stop 10/17/19 at 20:46; Status DC Morphine Sulfate (Morphine Sulfate) 2 mg PRN Q4HRS PRN IV PAIN Last administered on 10/18/19at 01:11; Start 10/17/19 at 19:30 Methylprednisolone Sodium Succinate (SOLU-Medrol 40MG VIAL) 40 mg Q8HRS IV Last administered on 10/19/19at 05:31; Start 10/17/19 at 22:00; Stop 10/19/19 at 06:01; Status DC Albuterol Sulfate (Ventolin Neb Soln) 2.5 mg RTQID NEB ; Start 10/17/19 at 20:00; Stop 10/17/19 at 19:57; Status DC Budesonide (Pulmicort) 0.5 mg RTBID NEB ; Start 10/17/19 at 20:00; Stop 10/17/19 at 19:57; Status DC Albuterol Sulfate (Ventolin Neb Soln) 2.5 mg RTQID NEB Last administered on 10/19/19at 07:51; Start 10/17/19 at 22:00 Budesonide (Pulmicort) 0.5 mg RTBID NEB Last administered on 10/19/19at 07:51; Start 10/17/19 at 22:00 Furosemide (Lasix) 40 mg 1X ONCE PO Last administered on 10/17/19at 20:58; Start 10/17/19 at 21:00; Stop 10/17/19 at 21:01; Status DC Tramadol HCl (Ultram) 50 mg PRN Q6HRS PRN PO MODERATE-SEVERE PAIN Last administered on 10/18/19at 10:46; Start 10/18/19 at 08:30 Diclofenac Sodium (Voltaren) 1 igor BID TP Last administered on 10/18/19at 20:48; Start 10/18/19 at 15:00 Active Scripts Active Furosemide 40 Mg Tablet 1 Tab PO BID 30 Days Dok (Docusate Sodium) 100 Mg Capsule 100 Mg PO PRN BID PRN 30 Days Fluticasone Propionate Nasal [place] (Fluticasone Propionate) 16 Gm [place].susp 2 [place] NS DAILY 30 Days Guaifenesin 100 Mg/5 Ml Liquid 200 Mg PO PRN Q4HRS PRN 30 Days Tylenol (Acetaminophen) 325 Mg Tablet 650 Mg PO PRN Q4HRS PRN 30 Days Hydrocodone-Apap 5-325 (Hydrocodone Bit/Acetaminophen) 1 Tab Tablet 1 Tab PO PRN Q6HRS PRN 14 Days Amlodipine Besylate 5 Mg Tablet 5 Mg PO DAILY 30 Days Metoprolol Succinate ( Xl ) (Metoprolol Succinate) 25 Mg Tab.er.24h 25 Mg PO DAILY 30 Days Feosol (Ferrous Sulfate) 325 Mg Tablet 325 Mg PO QODAY 30 Days Proair Hfa (Albuterol Sulfate) 8.5 Gm Hfa.aer.ad 2.5 Mg NEB PRN Q4HRS PRN 30 Days Symbicort 80-4.5 Mcg Inhaler (Budesonide/Formoterol Fumarate) 10.2 Gm Hfa.aer.ad 1 Puff IH BID Reported Calcitriol 0.25 Mcg Capsule 10 Mg PO DAILY MDD 10 mg Vitamin D3 (Cholecalciferol (Vitamin D3)) 1,000 Unit Tablet 1,000 Unit PO DAILY Levothyroxine Sodium 50 Mcg Tablet 75 Mcg PO DAILY Aspirin Ec (Aspirin) 81 Mg Tablet.dr 81 Mg PO DAILY Vitals/I & O Vital Sign - Last 24 Hours 10/18/19 10/18/19 10/18/19 10/18/19 10:46 11:00 11:46 11:49 Temp 99.1 99.1 Pulse 100 Resp 18 B/P (MAP) 105/69 (81) Pulse Ox 94 99 O2 Delivery Room Air Room Air Room Air Room Air 9/2/10/18/19 10/18/19 10/18/19 15:00 15:49 19:00 20:00 Temp 98.9 98.1 98.9 98.1 Pulse 92 99 Resp 18 18 B/P (MAP) 130/72 (91) 140/71 (94) Pulse Ox 94 99 95 O2 Delivery Room Air Room Air Room Air Room Air 10/18/19 10/18/19 10/18/19 10/19/19 20:21 20:22 23:00 03:00 Temp 98.0 97.9 98.0 97.9 Pulse 91 95 Resp 18 18 B/P (MAP) 141/61 (87) 157/91 (113) Pulse Ox 97 97 96 94 O2 Delivery Room Air Room Air Room Air Room Air 10/19/19 10/19/19 10/19/19 07:00 07:30 07:54 Temp 98.3 98.3 Pulse 102 Resp 16 B/P (MAP) 156/79 (104) Pulse Ox 96 97 O2 Delivery Room Air Room Air Room Air Intake and Output 10/18/19 10/18/19 10/19/19 15:00 23:00 07:00 Intake Total 120 ml 300 ml 350 ml Balance 120 ml 300 ml 350 ml Justifications for Admission Other Justification FEDE MATTHEWS MD Oct 19, 2019 09:25
[2019-10-19 10:58] LABS: % LYMPHS 7 % (24-48); % MONOS 1 % (0-10); % SEGS 92 % (35-66); ANISOCYTOSIS SLIGHT; OVALOCYTES OCC; PLT ESTIMATE ADEQUATE (ADEQUATE); POLYCHROMASIA SLIGHT; TEAR DROP CELLS OCC
[2019-10-19 11:00] VITALS: BP 165/77
--- NOTE | 2019-10-19 12:46 | PDOC ---
[employer] PROGRESS NOTE Date of Service DOS: DATE: 10/19/19 TIME: 12:41 Chief Complaint Chief Complaint Joint swelling History of Present Illness History of Present Illness Evaluated with family at bedside. Patient is feeling well today. Working with physical therapy who recommended home with home health, and patient and family agree. Comfortable with discharge today. Vitals/I&O Vitals/I&O: Vital Signs Date Time Temp Pulse Resp B/P (MAP) Pulse Ox O2 Delivery O2 Flow Rate FiO2 10/19/19 11:33 97 Room Air 10/19/19 11:00 98.6 73 16 165/77 (106) 98.6 I & O 10/18/19 10/18/19 10/19/19 15:00 23:00 07:00 Intake Total 120 ml 300 ml 350 ml Balance 120 ml 300 ml 350 ml Physical Exam General: Alert, No acute distress Heart: Regular rate Lungs: Clear, Crackles Abdomen: Normal bowel sounds Extremities: No clubbing, No cyanosis Skin: No rashes Labs Labs: Laboratory Tests Test 10/19/19 06:19 White Blood Count 10.0 x10^3/uL (4.0-11.0) Red Blood Count 2.92 x10^6/uL (3.50-5.40) Hemoglobin 9.0 g/dL (12.0-15.5) Hematocrit 28.0 % (36.0-47.0) Mean Corpuscular Volume 96 fL (79-100) Mean Corpuscular Hemoglobin 31 pg (25-35) Mean Corpuscular Hemoglobin Concent 32 g/dL (31-37) Red Cell Distribution Width 16.7 % (11.5-14.5) Platelet Count 155 x10^3/uL (140-400) Neutrophils (%) (Auto) 92 % (31-73) Lymphocytes (%) (Auto) 5 % (24-48) Monocytes (%) (Auto) 3 % (0-9) Eosinophils (%) (Auto) 0 % (0-3) Basophils (%) (Auto) 0 % (0-3) Neutrophils # (Auto) 9.3 x10^3/uL (1.8-7.7) Lymphocytes # (Auto) 0.5 x10^3/uL (1.0-4.8) Monocytes # (Auto) 0.3 x10^3/uL (0.0-1.1) Eosinophils # (Auto) 0.0 x10^3/uL (0.0-0.7) Basophils # (Auto) 0.0 x10^3/uL (0.0-0.2) Segmented Neutrophils % 92 % (35-66) Lymphocytes % 7 % (24-48) Monocytes % 1 % (0-10) Platelet Estimate Adequate (ADEQUATE) Polychromasia Slight Anisocytosis Slight Tear Drop Cells Occ Ovalocytes Occ Sodium Level 138 mmol/L (136-145) Potassium Level 4.1 mmol/L (3.5-5.1) Chloride Level 100 mmol/L (98-107) Carbon Dioxide Level 30 mmol/L (21-32) Anion Gap 8 (6-14) Blood Urea Nitrogen 69 mg/dL (7-20) Creatinine 2.2 mg/dL (0.6-1.0) Estimated GFR (Cockcroft-Gault) 25.6 Glucose Level 169 mg/dL (70-99) Calcium Level 9.1 mg/dL (8.5-10.1) Magnesium Level 2.5 mg/dL (1.8-2.4) C-Reactive Protein, Quantitative 177.8 mg/L (0-3.3) Review of Systems Review of Systems: Denies joint pain, denies chest pain, denies shortness of breath, denies fever. Assessment and Plan Assessmemt and Plan Problems Medical Problems: (1) Flare of rheumatoid arthritis Status: Acute (2) Pain in joints Status: Acute (3) Peripheral edema Status: Acute (4) Weak Status: Acute Plan: Recommend home with home health. Patient improved faster than before the anticipated 48 hours. We will discharge with short dose of oral steroids. Comment Review of Relevant I have reviewed the following items kade (where applicable) has been applied. Medications: Current Medications Medications (Trade) Dose Ordered Sig/Caroline Route PRN Reason Start Time Stop Time Status Last Admin Dose Admin Ferrous Sulfate (Feosol) 325 mg QODAY PO 10/19/19 09:00 10/19/19 09:21 Diclofenac Sodium (Voltaren) 1 igor BID TP 10/18/19 15:00 10/18/19 20:48 Justifications for Admission Other Justification LINDSAY WHITING MD Oct 19, 2019 12:46
[2019-10-19] MEDS ORDERED: PRED-220 PO (12:49)
--- NOTE | 2019-10-19 12:52 | SNU/HH DC ---
DISCHARGE WITH HOME HEALTH DISCHARGE INFORMATION: Discharge Date: Oct 19, 2019 Final Diagnosis: Problems Medical Problems: (1) Flare of rheumatoid arthritis Status: Acute (2) Pain in joints Status: Acute (3) Peripheral edema Status: Acute (4) Weak Status: Acute Condition on Discharge: Stable CODE STATUS: Code Status: Full HOME HEALTH: Face to Face: I certify this patient is under my care and that I, or a nurse practitioner or physician's assistant professor of education working with me, had a face to face encounter that meets the physician face to face encounter requirements with this patient on 10/19/19. Medical Complications: Other (Rheumatoid arthritis) Penitentiary For: Assess & Educate Safety, Assess/Skilled Observatio RN For Eval/Treatment: Yes Physical Therapy For: Evalulation/Treatment Occupational Therapy For: Evaluation/Treatment Pt Meets Homebound Status: Poor coordination w/ amb. POST DISCHARGE ORDERS: Activity Instructions for Disc: Activity as tolerated Weight Bearing Status after Di: As tolerated Bathing Instructions: No Tub Bath until see DIET AFTER DISCHARGE: Cardiac Wound/Incision Care: No wound care needed CHECKS AFTER DISCHARGE: Checks after discharge: Check blood press - daily, Check your Temp as needed TREATMENT/EQUIPMENT ORDERS: Adaptive Equipment Issued: None, Front wheeled walker Discharge Respiratory Equipmen: Nebulizer CERTIFICATION STATEMENT: Certification Statement: Certification Statement: Based on the above finding, I certify that this patient is confined to the home and needs intermittent correction care, physical therapy and/or speech therapy, or continues to need occupational therapy.~ This patient is under my care, and I have initiated the establishment of the plan of care.~ This patient will be followed by myself or a community physician who will periodically review the plan of care. Home Meds Active Scripts Furosemide (FUROSEMIDE) 40 Mg Tablet, 1 TAB PO BID for CHF for 30 Days, #60 TAB 5 Refills Prov:ANGLE STEEL MD 06/12/19 Docusate Sodium (DOK) 100 Mg Capsule, 100 MG PO PRN BID PRN for HARD STOOLS for 30 Days, #60 CAP Prov:ANGLE STEEL MD 06/12/19 Fluticasone Propionate (FLUTICASONE PROPIONATE NASAL SPRAY) 16 Gm [place].susp, 2 SPRAY NS DAILY for NASAL CONGESTION for 30 Days, #1 SPRAY Prov:ANGLE STEEL MD 06/12/19 Guaifenesin (GUAIFENESIN) 100 Mg/5 Ml Liquid, 200 MG PO PRN Q4HRS PRN for COUGH for 30 Days, #240 LIQUID Prov:ANGLE STEEL MD 06/12/19 Acetaminophen (TYLENOL) 325 Mg Tablet, 650 MG PO PRN Q4HRS PRN for TEMP OVER 100.4F OR MILD PAIN for 30 Days, #60 TAB Prov:ANGLE STEEL MD 06/12/19 Hydrocodone Bit/Acetaminophen (HYDROCODONE-APAP 5-325 ) 1 Tab Tablet, 1 TAB PO PRN Q6HRS PRN for PAIN for 14 Days, #40 TAB Prov:ANGLE STEEL MD 06/12/19 Amlodipine Besylate (AMLODIPINE BESYLATE) 5 Mg Tablet, 5 MG PO DAILY for BLOOD PRESSURE for 30 Days, #30 TAB Prov:ANGLE STEEL MD 06/12/19 Metoprolol Succinate (METOPROLOL SUCCINATE ( XL )) 25 Mg Tab.er.24h, 25 MG PO DAILY for BLOOD PRESSURE for 30 Days, #30 TAB.SR Prov:ANGLE STEEL MD 06/12/19 Ferrous Sulfate (FEOSOL) 325 Mg Tablet, 325 MG PO QODAY for ANEMIA for 30 Days, #30 TAB Prov:ANGLE STEEL MD 06/12/19 Albuterol Sulfate (Proair Hfa) 8.5 Gm Hfa.aer.ad, 2.5 MG NEB PRN Q4HRS PRN for SHORTNESS OF BREATH for 30 Days, #1 INHALER Prov:ANGLE STEEL MD 06/12/19 Budesonide/Formoterol Fumarate (SYMBICORT 80-4.5 MCG INHALER) 10.2 Gm Hfa.aer.ad, 1 PUFF IH BID for lung inflammation, #1 INHALER Prov:REBECCA HUANG MD 05/14/18 Reported Medications Calcitriol (CALCITRIOL) 0.25 Mcg Capsule, 10 MG PO DAILY for inflammation MDD 10 mg 06/07/19 Cholecalciferol (Vitamin D3) (VITAMIN D3) 1,000 Unit Tablet, 1000 UNIT PO DAILY 02/19/15 Levothyroxine Sodium (LEVOTHYROXINE SODIUM) 50 Mcg Tablet, 75 MCG PO DAILY 01/24/13 Aspirin (ASPIRIN EC) 81 Mg Tablet.dr, 81 MG PO DAILY 01/24/13 LINDSAY WHITING MD Oct 19, 2019 12:52
--- NOTE | 2019-10-19 12:58 | PDOC3 ---
Discharge Summary Visit Information Date of Admission: Oct 17, 2019 Date of Discharge: Oct 19, 2019 Final Diagnosis Problems Medical Problems: (1) Flare of rheumatoid arthritis Status: Acute (2) Pain in joints Status: Acute (3) Peripheral edema Status: Acute (4) Weak Status: Acute Brief Hospital Course Allergies Allergies Coded Allergies Type Severity Reaction Last Updated Verified No Known Drug Allergies 10/10/19 No Vital Signs Vital Signs Date Time Temp Pulse Resp B/P (MAP) Pulse Ox O2 Delivery O2 Flow Rate FiO2 10/19/19 11:33 97 Room Air 10/19/19 11:00 98.6 73 16 165/77 (106) 98.6 Lab Results Laboratory Tests Test 10/19/19 06:19 White Blood Count 10.0 x10^3/uL (4.0-11.0) Red Blood Count 2.92 x10^6/uL (3.50-5.40) Hemoglobin 9.0 g/dL (12.0-15.5) Hematocrit 28.0 % (36.0-47.0) Mean Corpuscular Volume 96 fL (79-100) Mean Corpuscular Hemoglobin 31 pg (25-35) Mean Corpuscular Hemoglobin Concent 32 g/dL (31-37) Red Cell Distribution Width 16.7 % (11.5-14.5) Platelet Count 155 x10^3/uL (140-400) Neutrophils (%) (Auto) 92 % (31-73) Lymphocytes (%) (Auto) 5 % (24-48) Monocytes (%) (Auto) 3 % (0-9) Eosinophils (%) (Auto) 0 % (0-3) Basophils (%) (Auto) 0 % (0-3) Neutrophils # (Auto) 9.3 x10^3/uL (1.8-7.7) Lymphocytes # (Auto) 0.5 x10^3/uL (1.0-4.8) Monocytes # (Auto) 0.3 x10^3/uL (0.0-1.1) Eosinophils # (Auto) 0.0 x10^3/uL (0.0-0.7) Basophils # (Auto) 0.0 x10^3/uL (0.0-0.2) Segmented Neutrophils % 92 % (35-66) Lymphocytes % 7 % (24-48) Monocytes % 1 % (0-10) Platelet Estimate Adequate (ADEQUATE) Polychromasia Slight Anisocytosis Slight Tear Drop Cells Occ Ovalocytes Occ Sodium Level 138 mmol/L (136-145) Potassium Level 4.1 mmol/L (3.5-5.1) Chloride Level 100 mmol/L (98-107) Carbon Dioxide Level 30 mmol/L (21-32) Anion Gap 8 (6-14) Blood Urea Nitrogen 69 mg/dL (7-20) Creatinine 2.2 mg/dL (0.6-1.0) Estimated GFR (Cockcroft-Gault) 25.6 Glucose Level 169 mg/dL (70-99) Calcium Level 9.1 mg/dL (8.5-10.1) Magnesium Level 2.5 mg/dL (1.8-2.4) C-Reactive Protein, Quantitative 177.8 mg/L (0-3.3) Laboratory Tests Test 10/19/19 06:19 White Blood Count 10.0 x10^3/uL (4.0-11.0) Red Blood Count 2.92 x10^6/uL (3.50-5.40) Hemoglobin 9.0 g/dL (12.0-15.5) Hematocrit 28.0 % (36.0-47.0) Mean Corpuscular Volume 96 fL (79-100) Mean Corpuscular Hemoglobin 31 pg (25-35) Mean Corpuscular Hemoglobin Concent 32 g/dL (31-37) Red Cell Distribution Width 16.7 % (11.5-14.5) Platelet Count 155 x10^3/uL (140-400) Neutrophils (%) (Auto) 92 % (31-73) Lymphocytes (%) (Auto) 5 % (24-48) Monocytes (%) (Auto) 3 % (0-9) Eosinophils (%) (Auto) 0 % (0-3) Basophils (%) (Auto) 0 % (0-3) Neutrophils # (Auto) 9.3 x10^3/uL (1.8-7.7) Lymphocytes # (Auto) 0.5 x10^3/uL (1.0-4.8) Monocytes # (Auto) 0.3 x10^3/uL (0.0-1.1) Eosinophils # (Auto) 0.0 x10^3/uL (0.0-0.7) Basophils # (Auto) 0.0 x10^3/uL (0.0-0.2) Segmented Neutrophils % 92 % (35-66) Lymphocytes % 7 % (24-48) Monocytes % 1 % (0-10) Platelet Estimate Adequate (ADEQUATE) Polychromasia Slight Anisocytosis Slight Tear Drop Cells Occ Ovalocytes Occ Sodium Level 138 mmol/L (136-145) Potassium Level 4.1 mmol/L (3.5-5.1) Chloride Level 100 mmol/L (98-107) Carbon Dioxide Level 30 mmol/L (21-32) Anion Gap 8 (6-14) Blood Urea Nitrogen 69 mg/dL (7-20) Creatinine 2.2 mg/dL (0.6-1.0) Estimated GFR (Cockcroft-Gault) 25.6 Glucose Level 169 mg/dL (70-99) Calcium Level 9.1 mg/dL (8.5-10.1) Magnesium Level 2.5 mg/dL (1.8-2.4) C-Reactive Protein, Quantitative 177.8 mg/L (0-3.3) Brief Hospital Course Ms. Hamm is a 84 old female who presented with rheumatoid arthritis flare. She was treated appropriate with IV steroids. She received physical therapy who recommended home with home health. Patient was discharged on a short course of p.o. steroids. Held baclofen, held narcotic medication. Assessment Assessment Rheumatoid arthritis flare Discharge Information Condition at Discharge: Improved Disposition/Orders: D/C to Home w/ HH Scheduled Amlodipine Besylate (Amlodipine Besylate) 5 Mg Tablet, 5 MG PO DAILY for BLOOD PRESSURE for 30 Days, #30 Prescribed by: ANGLE STEEL MD on 06/12/19 1205 Last Action: Continued on 10/17/191926 by SOLOMON WAGNER MD Aspirin (Aspirin Ec) 81 Mg Tablet.dr, 81 MG PO DAILY, (Reported) Entered as Reported by: MILDRED LATHAM on 01/24/13 1014 Last Action: Continued on 10/17/191926 by SOLOMON WAGNER MD Budesonide/Formoterol Fumarate (Symbicort 80-4.5 Mcg Inhaler) 10.2 Gm Hfa.aer.ad, 1 PUFF IH BID for lung inflammation, #1 Prescribed by: REBECCA HUANG on 05/14/18 1013 Last Action: Converted on 10/17/191926 by SOLOMON WAGNER MD Calcitriol (Calcitriol) 0.25 Mcg Capsule, 10 MG PO DAILY for inflammation MDD 10 mg, (Reported) Entered as Reported by: Willi Madison on 06/07/19 1612 Last Action: Continued on 10/17/191926 by SOLOMON WAGNER MD Cholecalciferol (Vitamin D3) (Vitamin D3) 1,000 Unit Tablet, 1,000 UNIT PO DAILY, (Reported) Entered as Reported by: ALEX CARNEY on 02/19/15 1408 Last Action: Continued on 10/17/191926 by SOLOMON WAGNER MD Ferrous Sulfate (Feosol) 325 Mg Tablet, 325 MG PO QODAY for ANEMIA for 30 Days, #30 Prescribed by: ANGLE STEEL MD on 06/12/19 1205 Last Action: Continued on 10/17/191926 by SOLOMON WAGNER MD Fluticasone Propionate (Fluticasone Propionate Nasal [place]) 16 Gm [place].susp, 2 SPRAY NS DAILY for NASAL CONGESTION for 30 Days, #1 Prescribed by: ANGLE STEEL MD on 06/12/19 1205 Last Action: Continued on 10/17/191926 by SOLOMON WAGNER MD Furosemide (Furosemide) 40 Mg Tablet, 1 TAB PO BID for CHF for 30 Days, #60 Ref 5 Prescribed by: ANGLE STEEL MD on 06/12/19 1206 Last Action: Continued on 10/17/191926 by SOLOMON WAGNER MD Levothyroxine Sodium (Levothyroxine Sodium) 50 Mcg Tablet, 75 MCG PO DAILY, (Reported) Entered as Reported by: MILDRED LATHAM on 01/24/13 1021 Last Action: Continued on 10/17/191926 by SOLOMON WAGNER MD Metoprolol Succinate (Metoprolol Succinate ( Xl )) 25 Mg Tab.er.24h, 25 MG PO DAILY for BLOOD PRESSURE for 30 Days, #30 Prescribed by: ANGLE STEEL MD on 06/12/19 1205 Last Action: Continued on 10/17/191926 by SOLOMON WAGNER MD Prednisone (Prednisone ) 10 Mg Tablet, 3 TAB PO DAILY for RA for 5 Days, #15 Ref 0 Prescribed by: LINDSAY WHITING MD on 10/19/19 1249 Scheduled PRN Acetaminophen (Tylenol) 325 Mg Tablet, 650 MG PO PRN Q4HRS PRN for TEMP OVER 100.4F OR MILD PAIN for 30 Days, #60 Prescribed by: ANGLE STEEL MD on 06/12/191204 Last Action: Continued on 10/17/191926 by SOLOMON WAGNER MD Albuterol Sulfate (Proair Hfa) 8.5 Gm Hfa.aer.ad, 2.5 MG NEB PRN Q4HRS PRN for SHORTNESS OF BREATH for 30 Days, #1 Prescribed by: ANGLE STEEL MD on 06/12/191204 Last Action: Continued on 10/17/191926 by SOLOMON WAGNER MD Docusate Sodium (Dok) 100 Mg Capsule, 100 MG PO PRN BID PRN for HARD STOOLS for 30 Days, #60 Prescribed by: ANGLE STEEL MD on 06/12/191204 Last Action: Continued on 10/17/191926 by SOLOMON WAGNER MD Guaifenesin (Guaifenesin) 100 Mg/5 Ml Liquid, 200 MG PO PRN Q4HRS PRN for COUGH for 30 Days, #240 Prescribed by: ANGLE STEEL MD on 06/12/191204 Last Action: Continued on 10/17/191926 by SOLOMON WAGNER MD Discontinued Medications Hydrocodone Bit/Acetaminophen (Hydrocodone-Apap 5-325 ) 1 Tab Tablet, 1 TAB PO PRN Q6HRS PRN for PAIN for 14 Days, #40 Prescribed by: ANGLE STEEL MD on 06/12/191204 Last Action: Continued on 10/17/191926 by SOLOMON WAGNER MD Justicifation of Admission Dx: Justifications for Admission: Justification of Admission Dx: N/A LINDSAY WHITING MD Oct 19, 2019 12:57
--- NOTE | 2019-10-19 13:44 | NUR ---
Discharge Note: ANDI MARTINEZ Discharge instructions and discharge home medications reviewed with Family Member and a copy given. All questions have been answered and understanding verbalized. The following instructions and handouts were given: discharge instructions, new prescription, education and follow up recommendations. Discontinued lines and drains: Peripheral IV discontinued intact. Patient discharged to Home with Home Health with Family Member via Wheelchair off unit by [place].
--- NOTE | 2019-10-19 14:34 | NUR ---
SW following. Discussed with RN, pt has had [facility] in the past. Adam Caal RN met with pt, pt accepted with [facility]. Pt discharged home with [facility]. No further SW needs.
[2019-11-09] MEDS ORDERED: CEFD300C PO (08:14)
== END 2019-10-19 13:48 | disposition home health service (06) | DRG 545 ==
LOC: ER 08:42 → OBSVTOIN 12:20 → 4 NORTH 12:20
PROVIDERS: ADMIT Internal Medicine; ATTEND Internal Medicine
DX: M06.9 Rheumatoid arthritis, unspecified (principal); G93.41 Metabolic encephalopathy; E03.9 Hypothyroidism, unspecified; E83.42 Hypomagnesemia; G62.9 Polyneuropathy, unspecified; G89.29 Other chronic pain; I11.0 Hypertensive heart disease with heart failure; I50.9 Heart failure, unspecified; K21.9 Gastro-esophageal reflux disease without esophagitis; K74.60 Unspecified cirrhosis of liver; M17.0 Bilateral primary osteoarthritis of knee; Z79.51 Long term (current) use of inhaled steroids; Z83.3 Family history of diabetes mellitus; Z90.49 Acquired absence of other specified parts of digestive tract; Z90.710 Acquired absence of both cervix and uterus
CPT/HCPCS: 36415; 80048; 80053; 81001; 83735; 83880; 84484; 85007; 85025; 86140; 94640; 94760; 96374; 96375; J2270; J2920; J2930; J3475; 97535-GO; 99285-25; G0378; J7613; J7626

== ENCOUNTER 2020-08-26 09:11 | Emergency (ER) | payer BC ==
[~2020-08-26] VITALS: Ht 170.2 cm; Wt 81.0 kg
[~2020-08-26 09:11] MED LIST changes: +ADAL40PE SQ; +AMLO-186 PO; -AMLO5TAB10 PO; +CEFD300C PO; -OMEP40CA45 PO; +OMEP40CA7 PO; +URSO250T10 PO; -URSO250T9 PO
[2020-08-26 09:47] VITALS: BP 171/83
== END 2020-08-26 09:54 | disposition left against medical advice (07) ==
LOC: ER 09:11
DX: R06.02 Shortness of breath (principal); Z53.21 Procedure and treatment not carried out due to patient leaving prior to being seen by health care provider